=== PATIENT | male | born 1955 ===

== ENCOUNTER 2017-06-09 13:48 | Inpatient (IN) | payer OTHER, MEDICARE ==
[2017-06-09] MEDS ORDERED: DiphenhydrAMINE 50 mg/ml Inj IVP STA (15:22)
--- NOTE | 2017-06-09 15:33 | ED PDOC ---
HPI: General Adult Time Seen by Provider: 06/09/17 14:52 Chief Complaint (Nursing): Shortness Of Breath Chief Complaint (Provider): Shortness Of Breath History Per: Patient History/Exam Limitations: no limitations Onset/Duration Of Symptoms: Other (x 3 weeks) Current Symptoms Are (Timing): Still Present Additional Complaint(s): William RINALDI is a 62 year old male who presents to the emergency department complaining of intermittently swelling of the face for 3 weeks. Patient was seen by PMD and prescribed cortisone steroid. Patient states swelling went away , but returned on Friday. Patient is also complaining of left-sided chest pain that started on Friday. Reports shortness of breath, but denies nausea, facial itching, itchy throat, sore throat or taking new medications. PMD: Seth Jenkins Past Medical History Vital Signs: Last Vital Signs Temp 97.8 F 06/09/17 13:54 Pulse 65 06/09/17 13:54 Resp 18 06/09/17 13:54 BP 104/59 L 06/09/17 13:54 Pulse Ox 100 06/09/17 17:02 - Medical History PMH: Arthritis, CAD, Colonic Polyps, COPD, Diverticulitis, HTN, Hypercholesterolemia, Hypothyroidism Denies: Deep Vein Thrombosis, Chronic Kidney Disease - Surgical History Surgical History: CABG (CABG 3 VESSEL 2013), Coronary Stent, Endoscopy - Family History Family History: States: Unknown Family Hx - Immunization History Hx Tetanus Toxoid Vaccination: No Hx Influenza Vaccination: No Hx Pneumococcal Vaccination: No - Home Medications Home Medications: Ambulatory Orders Medication Instructions Recorded Alprazolam [Xanax] 0.5 mg PO DAILY 06/09/17 Aspirin [Aspirin Chewable] 81 mg PO DAILY 06/09/17 Colchicine [Colcrys] 0.6 mg PO DAILY 06/09/17 Glycopyrrolate/Formoterol Fum 10.7 gm IH BID 06/09/17 [Bevespi Aerosphere Inhaler] Levothyroxine [Levoxyl] 0.025 mg PO DAILY 06/09/17 Metoprolol Succinate [Toprol Xl] 50 mg PO DAILY 06/09/17 Pantoprazole Sodium [Protonix] 40 mg PO DAILY 06/09/17 Valsartan [Diovan] 160 mg PO DAILY 06/09/17 Zolpidem [Ambien] 10 mg PO DAILY 06/09/17 oxyCODONE [oxycodone Hydrochloride] 10 mg PO Q8 06/09/17 - Allergies Allergies/Adverse Reactions: Allergies Allergy/AdvReac Type Severity Reaction Status Date / Time No Known Allergies Allergy Verified 11/04/16 07:17 Physical Exam - Reviewed Nursing Documentation Reviewed: Yes Vital Signs Reviewed: Yes - Physical Exam Appears: Positive for: Well, Non-toxic Head Exam: Positive for: NORMAL INSPECTION Skin: Positive for: Normal Color, Warm, Dry Eye Exam: Positive for: Other (Left eye lid edema with minimal facial edema) ENT: Negative for: Other (drooling) Neck: Positive for: Normal Cardiovascular/Chest: Positive for: Regular Rate, Rhythm Respiratory: Positive for: Normal Breath Sounds. Negative for: Respiratory Distress Gastrointestinal/Abdominal: Positive for: Normal Exam, Soft. Negative for: Tenderness Back: Positive for: Normal Inspection Extremity: Positive for: Normal ROM. Negative for: Deformity Neurologic/Psych: Positive for: Alert, Oriented (x 3), Other (Speaking full sentences) - Laboratory Results Result Diagrams: 06/09/17 15:48 06/09/17 15:48 - ECG Interpretation Of ECG: EKG #1: ST @ 102, poor baseline. EKG #2: NSR @ 86, no ST-T changes. O2 Sat by Pulse Oximetry: 100 (RA) Pulse Ox Interpretation: Normal - Radiology X-Ray: Interpreted by Dc X-Ray Interpretation: No Acute Disease - Physician Consult Information Time Consulting Physican Contacted: 17:02 Physician Contacted: Charlie Reid Outcome Of Conversation: Case discussed, will consult. - Core Measure Core Measure Indicators: Chest Pain Medical Decision Making Medical Decision Making: Time: 15:20 Plan: - EKG - CMP - Troponin I - CBC - Partial Thromboplastin tIME - Prothrombin Time - Portable Chest X-Ray - Benadryl 25 mg IVP STAT - Pepcid 20 mg IVP STAT - Urinalysis Accession No. : [id number] Patient Name / ID : KATHY SERNA / [id number] Exam Date : 06/09/2017 15:39:46 ( Approved ) Study Comment : Sex / Age : M / 62Y Creator : geeta hayden Dictator : Giuliano Ryan MD Clinical Research Director : Hem Marker : Giuliano Ryan MD Approver2 : Report Date : 06/09/2017 15:50:30 My Comment : HISTORY: Chest pain. COMPARISON: 05/31/2013 FINDINGS: LUNGS: No active pulmonary disease. PLEURA: No significant pleural effusion identified, no pneumothorax apparent. CARDIOVASCULAR: No radiographic findings to suggest acute or significant cardiovascular disease. Incidental Finding(s): Postoperative changes related to sternotomy. OSSEOUS STRUCTURES: No significant abnormalities. VISUALIZED UPPER ABDOMEN: Normal. OTHER FINDINGS: None. IMPRESSION: No active disease. No significant interval change. Scribe Attestation: Documented by Cristian Claros, acting as a scribe for Belle Ruiz MD Provider Scribe Attestation: All medical record entries made by the Scribe were at my direction and personally dictated by me. I have reviewed the chart and agree that the record accurately reflects my personal performance of the history, physical exam, medical decision making, and the department course for this patient. I have also personally directed, reviewed, and agree with the discharge instructions and disposition. Disposition - Clinical Impression Clinical Impression: NSTEMI (non-ST elevated myocardial infarction) - Patient ED Disposition Is Patient to be Admitted: Yes - Disposition Disposition Time: 17:01 Condition: GUARDED Forms: [facility] (Ugandan) - Pt Status Changed To: Hospital Disposition Of: Inpatient - Admit Certification Admit to Inpatient:: After my assessment, the patient will require hospitalization for at least two midnights. This is because of the severity of symptoms shown, intensity of services needed, and/or the medical risk in this patient being treated as an outpatient. - POA Present On Arrival: None MAYCO Risk Score for UA/NSTEMI - MAYCO Risk Score Age > 64: NO 3 or more CAD Risk Factors: YES Known CAD (Stenosis greater than 50%): YES Aspirin use in past 7 days: YES Severe Angina: NO EKG ST changes greater than 0.5mm: NO Positive Cardiac Marker: NO MAYCO Score: 3 % risk at 14 days of: all cause mortality, new or recurrent ID, or severe recurrent ischemia requiring urgen revascularization: 13%
[2017-06-09 16:01] LABS: BASO # 0.1 K/uL (0.0-0.2); BASO % 1.1 % (0.0-2.0); EOS # 0.2 K/uL (0.0-0.7); EOS % 2.1 % (0.0-4.0); HEMOGLOBIN 12.6 g/dL (12.0-18.0); LYMPH # 1.1 K/uL (1.0-4.3); LYMPH % 12.1 % (20.0-40.0); MEAN CELL VOLUME 83.6 fl (80.0-94.0); MEAN CORPUSCULAR HEMOGLOBIN 26.5 pg (27.0-31.0); MEAN CORPUSCULAR HGB CONC 31.7 g/dL (33.0-37.0); MONO # 0.8 K/uL (0.0-0.8); MONO % 8.7 % (0.0-10.0); RBC 4.76 Mil/uL (4.40-5.90); RED CELL DISTRIBUTION WIDTH 15.6 % (11.5-14.5); WHITE BLOOD COUNT 9.2 K/uL (4.8-10.8)
[2017-06-09] MEDS ORDERED: DiphenhydrAMINE 50 mg/ml Inj ONE (16:09)
[2017-06-09 16:11] LABS: INR 1.1 (0.9-1.2); PARTIAL THROMBOPLASTIN TIME 27.9 Seconds (25.6-37.1); PROTHROMBIN TIME 11.7 Seconds (9.8-13.1)
[2017-06-09 16:41] LABS: ALB/GLOB RATIO 1.2 (1.0-2.1); ALT/SGPT 353 U/L (21-72); AST/SGOT 540 U/L (17-59); BLOOD UREA NITROGEN 21 mg/dl (9-20); CALCIUM 9.6 mg/dL (8.4-10.2); GFR AFRICAN-AMERICAN > 60; GFR NON-AFRICAN AMERICAN > 60
--- NOTE | 2017-06-09 16:42 | RAD ---
HISTORY: Chest pain. COMPARISON: 05/31/2013 FINDINGS: LUNGS: No active pulmonary disease. PLEURA: No significant pleural effusion identified, no pneumothorax apparent. CARDIOVASCULAR: No radiographic findings to suggest acute or significant cardiovascular disease. Incidental Finding(s): Postoperative changes related to sternotomy. OSSEOUS STRUCTURES: No significant abnormalities. VISUALIZED UPPER ABDOMEN: Normal. OTHER FINDINGS: None. IMPRESSION: No active disease. No significant interval change.
[2017-06-09] MEDS ORDERED: Enoxaparin 100 mg Syringe SC STA ×2 (16:43→16:47)
--- NOTE | 2017-06-09 18:17 | CP.PCM.CON ---
History of Present Illness - History of Present Illness History of Present Illness: I was asked to evaluate patient by Dr Hernandez. Patient is a 62 year old male with PMH HTN, CAD s/p CABG (BERMUDEZ to LAD, SVG toOM (stented)), DM who presents with chest pain. The patient states he has had a recent rash on his face and body. He was noted recently to have elevated liver enzymes by his medical doctor. The patient developed substernal chest pressure and associated dyspnea. He presented to [facility]. Troponin was elevated. Review of Systems - Constitutional Constitutional: Malaise, Weakness - EENT Eyes: absent: As Per HPI, Blind Spots, Blurred Vision, Change in Vision, Decreased Night Vision, Diplopia, Discharge, Dry Eye, Exophthalmos, Floaters, Irritation, Itchy Eyes, Loss of Peripheral Vision, Pain, Photophobia, Requires Corrective Lenses, Sees Flashes, Spots in Vision, Tunnel Vision, Other Visual Disturbances, Loss of Vision, Other Ears: absent: As Per HPI, Decreased Hearing, Ear Discharge, Ear Pain, Tinnitus, Abnormal Hearing, Disequilibrium, Dizziness, Other Nose/Mouth/Throat: absent: As Per HPI, Epistaxis, Nasal Congestion, Nasal Discharge, Nasal Obstruction, Nasal Trauma, Nose Pain, Post Nasal Drip, Sinus Pain, Sinus Pressure, Bleeding Gums, Change in Voice, Dental Pain, Dry Mouth, Dysphagia, Halitosis, Hoarsness, Lip Swelling, Mouth Lesions, Mouth Pain, Odynophagia, Sore Throat, Throat Swelling, Tongue Swelling, Facial Pain, Neck Pain, Neck Mass, Other - Cardiovascular Cardiovascular: Chest Pain, Dyspnea - Respiratory Respiratory: Dyspnea - Gastrointestinal Gastrointestinal: absent: As Per HPI, Abdominal Pain, Belching, Bloating, Change in Bowel Habits, Change in Stool Character, Coffee Ground Emesis, Constipation, Cramping, Diarrhea, Dyspepsia, Dysphagia, Early Satiety, Excessive Flatus, Fecal Incontinence, Heartburn, Hematemesis, Hematochezia, Loose Stools, Melena, Nausea, Odynophagia, Temesmus, Vomiting, Other - Genitourinary Genitourinary: absent: As Per HPI, Change in Urinary Stream, Difficulty Urinating, Dysuria, Flank Pain, Hematuria, Pyuria, Nocturia, Urinary Incontinence, Urinary Frequency, Urinary Hesitance, Urinary Urgency, Voiding Freq/Small Amts, Freq UTI, Hx Renal/Bladder Calculi, Hx /Renal Surgery, Bladder Distension, Other - Musculoskeletal Musculoskeletal: absent: As Per HPI, Abnormal Gait, Arthralgias, Atrophy, Back Pain, Deformity, Joint Swelling, Limited Range of Motion, Loss of Height, Muscle Cramps, Muscle Weakness, Myalgias, Neck Pain, Numbness, Radiating Pain into Limb, Stiffness, Tingling, Other - Integumentary Integumentary: Rash - Neurological Neurological: absent: As Per HPI, Abnormal Gait, Abnormal Hearing, Abnormal Movements, Abnormal Speech, Behavioral Changes, Burning Sensations, Confusion, Convulsions, Disequilibrium, Dizziness, Numbness, Focal Weakness, Frequent Falls , Headaches, Lack of Coordination, Loss of Vision, Memory Loss, Paresthesias, Radicular Pain, Restless Legs, Sensory Deficit, Syncope, Tingling, Tremor, Vertigo, Weakness, Other Visual Disturbances, Other - Psychiatric Psychiatric: absent: As Per HPI, Abnormal Sleep Pattern, Anhedonia, Anxiety, Auditory Hallucinations, Behavioral Changes, Change in Appetite, Change in Libido, Confusion, Depression, Difficulty Concentrating, Hallucinations, Homicidal Ideation, Hopelessness, Irritability, Memory Loss, Mood Swings, Panic Attacks, Paranoia, Suicidal Ideation, Visual Hallucinations, Tactile Hallucinations, Other - Endocrine Endocrine: absent: As Per HPI, Change in Body Appearance, Change in Libido, Cold Intolorance, Deepening of Voice, Excessive Sweating, Fatigue, Flushing, Heat Intolorance, Increase in Ring/Shoe/Hat Size, Palpitations, Polydipsia, Polyphagia, Polyuria, Other - Hematologic/Lymphatic Hematologic: absent: As Per HPI, Easy Bleeding, Easy Bruising, Lymphadenopathy, Other Past Patient History - Past Medical History & Family History Past Medical History?: Yes - Past Social History Smoking Status: Former Smoker - CARDIAC Hx Hypercholesterolemia: Yes Hx Hypertension: Yes - PULMONARY Hx Chronic Obstructive Pulmonary Disease (COPD): Yes - NEUROLOGICAL Hx Neurological Disorder: No Hx Syncope: No - HEENT Hx HEENT Problems: No - RENAL Hx Chronic Kidney Disease: No - ENDOCRINE/METABOLIC Hx Hypothyroidism: Yes - HEMATOLOGICAL/ONCOLOGICAL Hx Blood Disorders: No Hx AIDS: No Hx Blood Transfusions: No - INTEGUMENTARY Hx Dermatological Problems: No - MUSCULOSKELETAL/RHEUMATOLOGICAL Hx Arthritis: Yes - GASTROINTESTINAL Hx Diverticulitis: Yes - GENITOURINARY/GYNECOLOGICAL Hx Genitourinary Disorders: No - PSYCHIATRIC Hx Psychophysiologic Disorder: No Hx Substance Use: No - SURGICAL HISTORY Hx Coronary Artery Bypass Graft: Yes (CABG 3 VESSEL 2014) Hx Coronary Stent: Yes - ANESTHESIA Hx Anesthesia: Yes Hx Anesthesia Reactions: No Hx Malignant Hyperthermia: No Meds Allergies/Adverse Reactions: Allergies Allergy/AdvReac Type Severity Reaction Status Date / Time No Known Allergies Allergy Verified 11/04/16 07:17 Physical Exam - Constitutional Appears: Non-toxic - Head Exam Head Exam: NORMAL INSPECTION - Eye Exam Eye Exam: Periorbital swelling - ENT Exam ENT Exam: Mucous Membranes Moist - Neck Exam Neck exam: Positive for: Full Rom, Normal Inspection - Respiratory Exam Respiratory Exam: NORMAL BREATHING PATTERN - Cardiovascular Exam Cardiovascular Exam: REGULAR RHYTHM - GI/Abdominal Exam GI & Abdominal Exam: Normal Bowel Sounds - Rectal Exam Rectal Exam: Deferred - Extremities Exam Extremities exam: Positive for: normal inspection, pedal pulses present. Negative for: pedal edema - Back Exam Back exam: NORMAL INSPECTION, rash noted - Neurological Exam Neurological exam: Alert, Oriented x3 - Psychiatric Exam Psychiatric exam: Normal Affect - Skin Skin Exam: Normal Color, Rash Results - Vital Signs Recent Vital Signs: Last Vital Signs Temp 97.8 F 06/09/17 13:54 Pulse 65 06/09/17 13:54 Resp 18 06/09/17 13:54 BP 104/59 L 06/09/17 13:54 Pulse Ox 100 06/09/17 17:02 - Labs Result Diagrams: 06/09/17 15:48 06/09/17 15:48 Labs: Laboratory Results - last 24 hr 06/09/17 06/09/17 06/09/17 15:48 15:48 15:48 WBC 9.2 RBC 4.76 Hgb 12.6 D Hct 39.8 MCV 83.6 MCH 26.5 L MCHC 31.7 L RDW 15.6 H Plt Count 316 D MPV 9.0 Neut % (Auto) 76.0 H Lymph % (Auto) 12.1 L Andrew % (Auto) 8.7 Eos % (Auto) 2.1 Baso % (Auto) 1.1 Neut # 7.0 Lymph # 1.1 Andrew # 0.8 Eos # 0.2 Baso # 0.1 PT 11.7 INR 1.1 APTT 27.9 Sodium 140 Potassium 4.6 Chloride 102 Carbon Dioxide 26 Anion Gap 17 BUN 21 H Creatinine 1.2 Est GFR ( Amer) > 60 Est GFR (Non-Af Amer) > 60 Random Glucose 113 H Calcium 9.6 Total Bilirubin 0.6 AST 540 H ALT 353 H D Alkaline Phosphatase 56 Troponin I 0.1910 H* Total Protein 7.2 Albumin 4.0 Globulin 3.2 Albumin/Globulin Ratio 1.2 - EKG Data EKG Interpreted by: Myself EKG shows normal: Sinus rhythm Assessment & Plan (1) NSTEMI (non-ST elevated myocardial infarction) Assessment and Plan: willstart lovenox. ASA therapy. will need cardiac cath, but liver enzymes are elevated and will need further workup. Status: Acute (2) Elevated liver enzymes Assessment and Plan: recommend RUQ sono and GI eval Status: Acute
[2017-06-09 18:53] VITALS: BMI 26.6
[2017-06-09] MEDS ORDERED: Metoprolol Succinate 50 mg XL Tab PO SCH (23:24)
[2017-06-10] MEDS: Oxycodone/Acetaminophen 5/325 mg Tab PO PRN ×4 (00:01→23:40)
[2017-06-10 04:18] LABS: HEMOGLOBIN 12.1 g/dL (12.0-18.0); MEAN CELL VOLUME 82.9 fl (80.0-94.0); MEAN CORPUSCULAR HEMOGLOBIN 27.1 pg (27.0-31.0); MEAN CORPUSCULAR HGB CONC 32.7 g/dL (33.0-37.0); RBC 4.45 Mil/uL (4.40-5.90); WHITE BLOOD COUNT 8.1 K/uL (4.8-10.8)
[2017-06-10 04:24] LABS: SQUAMOUS EPITHIAL < 1 /hpf (0-5); URINE BACTERIA RARE (<OCC); URINE BILIRUBIN NEGATIVE (NEGATIVE); URINE BLOOD MODERATE (NEGATIVE); URINE CLARITY CLOUDY (Clear); URINE COLOR AMBER (YELLOW); URINE GLUCOSE (UA) NEG (Normal); URINE LEUKOCYTE ESTERASE NEG Leu/uL (Negative); URINE NITRATE NEGATIVE (NEGATIVE); URINE PROTEIN 30 mg/dL (NEGATIVE)
[2017-06-10 05:15] LABS: ALB/GLOB RATIO 1.3 (1.0-2.1); ALBUMIN 3.9 g/dL (3.5-5.0); CALCIUM 9.1 mg/dL (8.4-10.2)
[2017-06-10 08:07] LABS: TROPONIN I 0.162 ng/mL (0.00-0.120)
--- NOTE | 2017-06-10 08:37 | CARD ---
APPROVED REPORT EKG Measurement Heart [id number] <Conclusion> Normal sinus rhythm Normal ECG
[2017-06-10] MEDS ORDERED: GLYCOPYRROLATE IH SCH (09:00)
[2017-06-10] MEDS ORDERED: FORMOTEROL FUM IH SCH (09:00)
--- NOTE | 2017-06-10 10:25 | US ---
HISTORY: Elevated liver enzymes COMPARISON: 08/19/2014 CT abdomen and pelvis TECHNIQUE: Sonographic evaluation of the abdomen. FINDINGS: LIVER: Measures 17.8 cm. Hepatopedal blood flow. Fatty infiltration manifest ultrasonographically as increased echogenicity of the liver parenchyma. No mass. No intrahepatic bile duct dilatation. GALLBLADDER: Unremarkable. No gallstones. COMMON BILE DUCT: Measures 4.1 mm. No stones. No dilatation. PANCREAS: Unremarkable as visualized. No mass. No ductal dilatation. Portions of pancreatic tail and body are obscured by overlying bowel gas. RIGHT KIDNEY: Measures 5.4 x 11.4cm. Normal echogenicity. No calculus, mass, or hydronephrosis. LEFT KIDNEY: Measures 5.6 x 10.6cm. Normal echogenicity. No calculus, mass, or hydronephrosis. SPLEEN: Top Normal in size and contour. No mass. AORTA: No aneurysmal dilatation. IVC: Unremarkable. OTHER FINDINGS: None. IMPRESSION: Hepatomegaly/hepatic steatosis without focal abnormality.
[2017-06-10] MEDS: Pantoprazole 40 mg EC Tab PO SCH (10:39)
[2017-06-10] MEDS: Levothyroxine 25 MCG TAB PO SCH (10:40)
[2017-06-10] MEDS ORDERED: methylPREDNISolone 125 MG in Sodium Chloride 0.9% 50 ML IVPB ONE (11:37)
[2017-06-10] MEDS: Sodium Chloride 0.9% 1,000 ML IV SCH ×2 (12:05→23:37)
[2017-06-10] MEDS: Enoxaparin 100 mg Syringe SC SCH ×2 (12:06→21:16)
--- NOTE | 2017-06-10 13:56 | CARD ---
APPROVED REPORT EXAM: Two-dimensional and M-mode echocardiogram with Doppler and color Doppler. Other Information Quality : GoodRhythm : NSR INDICATION Non STEMI Surgery/Intervention CABD DIMENSIONS IVSd1.17 (0.7-1.1cm)LVDd4.98 (3.9-5.9cm) LVOT Diameter2.18 (1.8-2.4cm)PWd1.20 (0.7-1.1cm) IVSs1.41 (0.8-1.2cm)LVDs3.21 (2.5-4.0cm) FS (%) 35.6 %PWs1.51 (0.8-1.2cm) M-Mode DIMENSIONS Left Atrium (MM)4.09 (2.5-4.0cm)IVSd1.00 (0.7-1.1cm) Aortic Root2.88 (2.2-3.7cm)LVDd5.06 (4.0-5.6cm) Aortic Cusp Exc.1.94 (1.5-2.0cm)PWd1.09 (0.7-1.1cm) IVSs1.24 cmFS (%) 42 % LVDs2.94 (2.0-3.8cm)PWs1.79 cm Mitral Valve MV E Ccltdnkt59.5cm/sMV DECEL [id number] A Mwkgejfu68.7cm/s MV QUC08mpX/A ratio1.3MVA (PHT)4.41cm2 TDI Lateral E' Peak V10.10cm/sMedial E' Peak V10.02cm/sE/Lateral E'7.0 E/Medial E'7.0 Pulmonary Valve PV Peak Zmczzamw439.6cm/s LEFT VENTRICLE The left ventricle is normal size. There is normal left ventricular wall thickness. Left ventricle systolic function is normal. The Ejection Fraction is 60-65%. There is normal LV segmental wall motion. The left ventricular diastolic function is normal. RIGHT VENTRICLE The right ventricle is normal size. There is normal right ventricular wall thickness. The right ventricular systolic function is normal. ATRIA The left atrium size is normal. The right atrium size is normal. AORTIC VALVE The aortic valve is normal in structure. No aortic regurgitation is present. There is no aortic valvular stenosis. MITRAL VALVE The mitral valve is normal in structure. There is no evidence of mitral valve prolapse. There is no mitral valve stenosis. There is no mitral valve regurgitation noted. TRICUSPID VALVE The tricuspid valve is normal in structure. There is no tricuspid valve regurgitation noted. PULMONIC VALVE The pulmonary valve is normal in structure. There is no pulmonic valvular regurgitation. GREAT VESSELS The aortic root is normal in size. The IVC is normal in size and collapses >50% with inspiration. PERICARDIAL EFFUSION The pericardium appears normal. <Conclusion> The left ventricle is normal size. There is normal left ventricular wall thickness. There is normal LV segmental wall motion. Left ventricle systolic function is normal. The Ejection Fraction is 60-65%. The left ventricular diastolic function is normal.
--- NOTE | 2017-06-10 16:44 | CP.PCM.HP ---
History of Present Illness - History of Present Illness History of Present Illness: 62 yr old M presented to ED with complaint of left chest pain, SOB and intermittent facial swelling x 3 weeks. PMHx includes CAD s/p CABG-3 vessel and stent 2013, HTN, Hypothyroidism, Diverticulitis, rheumatoid arthritis, Etoh and tobacco abuse (quit 5 yrs ago). Denies sweating, nausea, vomiting, diarrhea or radiation of pain to extremities. Patient reports his PMD-Dr. Jenkins had given him steroids for the facial swelling, it had resolved and then recurred. Patient also reports 14 lb weight loss in a little over 2 weeks, he has been eating healthier/smaller meals but has not been exercising. PMD: Seth Ramirez PMHx: CAD s/p CABG-3 vessel and stent 2013, HTN, Hypothyroidism, Diverticulitis , rheumatoid arthritis, Etoh and tobacco abuse (quit 5 yrs ago) SurgHx: CABG-3 vessel and stent 2013, total right knee replacement 03/07/17; I& D to lower back abscess FMHx: mother is 84-has some type of band nailer cancer/HTN and DM, father at 82 from [place], CAD, PVD; SocHx: denies current tobacco/Etoh or drugs; former tobacco user (90 pack years- quit 5 yrs ago), former Etoh abuse (quit 5 yrs ago-used to drink 1 quart of vodka daily); lives with Medications: see medication reconciliation Allergies: NKDA Present on Admission - Present on Admission Any Indicators Present on Admission: No History of DVT/PE: No History of Uncontrolled Diabetes: No Urinary Catheter: No Decubitus Ulcer Present: No History Surgical Site Infection Following: None Review of Systems - Review of Systems All systems: reviewed and no additional remarkable complaints except (for what is mentioned in the HPI) - Constitutional Constitutional: Weight Loss. absent: Anorexia, Chills, Fever - EENT Eyes: absent: Blurred Vision, Change in Vision Ears: absent: Ear Pain, Disequilibrium, Dizziness Nose/Mouth/Throat: absent: Nasal Congestion, Nasal Discharge, Throat Swelling, Tongue Swelling Additional comments: bilateral periorbital and cheek facial swelling with erythema - Cardiovascular Cardiovascular: Chest Pain, Dyspnea - Respiratory Respiratory: absent: Hemoptysis - Gastrointestinal Gastrointestinal: absent: Abdominal Pain, Nausea, Vomiting - Genitourinary Genitourinary: absent: Difficulty Urinating, Dysuria - Musculoskeletal Musculoskeletal: Arthralgias - Integumentary Integumentary: absent: Bleeding Lesions - Neurological Neurological: absent: Confusion, Focal Weakness, Syncope - Psychiatric Psychiatric: absent: Anxiety - Endocrine Endocrine: absent: Polydipsia, Polyuria - Hematologic/Lymphatic Hematologic: absent: Easy Bleeding, Easy Bruising Past Patient History - Past Medical History & Family History Past Medical History?: Yes - Past Social History Smoking Status: Former Smoker - CARDIAC Hx Cardiac Disorders: Yes Hx Hypercholesterolemia: Yes Hx Hypertension: Yes - PULMONARY Hx Respiratory Disorders: No - NEUROLOGICAL Hx Neurological Disorder: No - HEENT Hx HEENT Problems: No - RENAL Hx Chronic Kidney Disease: No - ENDOCRINE/METABOLIC Hx Endocrine Disorders: Yes Hx Diabetes Mellitus Type 2: Yes - HEMATOLOGICAL/ONCOLOGICAL Hx Blood Disorders: No Hx AIDS: No Hx Human Immunodeficiency Virus (HIV): No - INTEGUMENTARY Hx Dermatological Problems: No - MUSCULOSKELETAL/RHEUMATOLOGICAL Hx Musculoskeletal Disorders: Yes Hx Falls: No Other/Comment: Right knee replacement - GASTROINTESTINAL Hx Gastrointestinal Disorders: Yes Hx Diverticulitis: Yes - GENITOURINARY/GYNECOLOGICAL Hx Genitourinary Disorders: No - PSYCHIATRIC Hx Psychophysiologic Disorder: No Hx Substance Use: No - SURGICAL HISTORY Hx Surgeries: Yes Hx Coronary Artery Bypass Graft: Yes (CABG 3 VESSEL 2013) Hx Coronary Stent: Yes - ANESTHESIA Hx Anesthesia: Yes Hx Anesthesia Reactions: No Hx Malignant Hyperthermia: No Meds Allergies/Adverse Reactions: Allergies Allergy/AdvReac Type Severity Reaction Status Date / Time No Known Allergies Allergy Verified 11/04/16 07:17 Physical Exam - Constitutional Appears: No Acute Distress - Head Exam Head Exam: ATRAUMATIC - Eye Exam Eye Exam: EOMI, Periorbital swelling (bilateral, with erythema), PERRL - ENT Exam ENT Exam: Mucous Membranes Moist - Neck Exam Neck exam: Positive for: Full Rom. Negative for: Lymphadenopathy - Respiratory Exam Respiratory Exam: Clear to Auscultation Bilateral, NORMAL BREATHING PATTERN - Cardiovascular Exam Cardiovascular Exam: REGULAR RHYTHM, +S1, +S2 - GI/Abdominal Exam GI & Abdominal Exam: Normal Bowel Sounds, Soft (obese). absent: Tenderness - Extremities Exam Extremities exam: Positive for: full ROM. Negative for: calf tenderness, pedal edema - Neurological Exam Neurological exam: Alert, CN II-XII Intact, Oriented x3 - Psychiatric Exam Psychiatric exam: Normal Affect, Normal Mood - Skin Skin Exam: Dry, Normal Color, Warm Results - Vital Signs Recent Vital Signs: Last Vital Signs Temp 98.1 F 06/10/17 15:53 Pulse 97 H 06/10/17 15:53 Resp 20 06/10/17 15:53 BP 114/61 06/10/17 15:53 Pulse Ox 99 06/10/17 15:53 - Labs Result Diagrams: 06/10/17 04:10 06/10/17 04:10 Labs: Laboratory Results - last 24 hr 06/09/17 06/10/17 06/10/17 15:48 04:10 04:10 WBC 8.1 RBC 4.45 Hgb 12.1 Hct 36.9 MCV 82.9 MCH 27.1 MCHC 32.7 L RDW 16.0 H Plt Count 291 Sodium 140 Potassium 4.6 Chloride 102 Carbon Dioxide 26 Anion Gap 17 BUN 21 H Creatinine 1.2 Est GFR ( Amer) > 60 Est GFR (Non-Af Amer) > 60 Random Glucose 113 H Calcium 9.6 Total Bilirubin 0.6 AST 540 H ALT 353 H D Alkaline Phosphatase 56 Troponin I 0.1910 H* Total Protein 7.2 Albumin 4.0 Globulin 3.2 Albumin/Globulin Ratio 1.2 Urine Color Sarah Urine Clarity Cloudy Urine pH 5.0 Ur Specific [place] 1.023 Urine Protein 30 Urine Glucose (UA) Neg Urine Ketones Negative Urine Blood Moderate Urine Nitrate Negative Urine Bilirubin Negative Urine Urobilinogen 2.0 Ur Leukocyte Esterase Neg Urine RBC (Auto) 2 Urine Microscopic WBC 6 H Ur Squamous Epith Cells < 1 Urine Bacteria Rare Hyaline Casts 6-10 H 06/10/17 06/10/17 04:10 11:35 WBC RBC Hgb Hct MCV MCH MCHC RDW Plt Count Sodium 139 Potassium 4.1 Chloride 101 Carbon Dioxide 26 Anion Gap 16 BUN 29 H Creatinine 1.7 H Est GFR ( Amer) 50 Est GFR (Non-Af Amer) 41 Random Glucose 84 Calcium 9.1 Total Bilirubin 0.4 AST 497 H ALT 339 H Alkaline Phosphatase 54 Troponin I 0.1620 H* 0.1430 H* Total Protein 6.8 Albumin 3.9 Globulin 3.0 Albumin/Globulin Ratio 1.3 Urine Color Urine Clarity Urine pH Ur Specific [place] Urine Protein Urine Glucose (UA) Urine Ketones Urine Blood Urine Nitrate Urine Bilirubin Urine Urobilinogen Ur Leukocyte Esterase Urine RBC (Auto) Urine Microscopic WBC Ur Squamous Epith Cells Urine Bacteria Hyaline Casts Assessment & Plan - Assessment and Plan (Free Text) Assessment: 62 yr old M admitted for chest pain and SOB, found to have an NSTEMI. -admit to tele -cardiac monitoring -Cardiology on consult-will follow recommendations: Lovenox 90 mg SC Q12, ASA, will need cath once liver enzymes normalize -GI on consult-will follow recommendations: abdominal US -IV fluids, Methylprednisolone 125 mg IV once, singulair 10mg PO QD, prednisone 20mg PO QD -f/u ESR, echocardiogram -heart healthy diet -f/u CBC, CMP - Date & Time Date: 06/10/17 Time: 09:00
[2017-06-10 16:59] LABS: HEPATITIS B SURFACE AG Negative (NEGATIVE)
[2017-06-10 17:05] LABS: HEPATITIS A IGM NEGATIVE (NEGATIVE); HEPATITIS B CORE AB NEGATIVE (NEGATIVE)
[2017-06-10 17:16] LABS: HEPATITIS C ANTIBODY NEGATIVE (NEGATIVE)
--- NOTE | 2017-06-10 18:11 | CP.PCM.PN ---
Subjective - Date & Time of Evaluation Date of Evaluation: 06/10/17 Time of Evaluation: 18:00 Objective - Vital Signs/Intake and Output Vital Signs (last 24 hours): Temp Pulse Resp BP Pulse Ox 98.1 F 97 H 20 114/61 99 06/10/17 15:53 06/10/17 15:53 06/10/17 15:53 06/10/17 15:53 06/10/17 15:53 - Medications Medications: Current Medications Alprazolam (Xanax) 0.5 mg PO Q12 [facility] Last Admin: 06/10/17 10:46 Dose: 0.5 mg Aspirin (Aspirin Chewable) 81 mg PO DAILY [facility] Last Admin: 06/10/17 10:38 Dose: 81 mg Colchicine (Colocrys) 0.6 mg PO DAILY [facility] Last Admin: 06/10/17 10:38 Dose: 0.6 mg Diphenhydramine HCl (Benadryl) 25 mg PO Q6 PRN PRN Reason: pruritis Last Admin: 06/10/17 10:46 Dose: 25 mg Enoxaparin Sodium (Lovenox) 90 mg SC Q12 [facility] PRN Reason: Protocol Last Admin: 06/10/17 12:06 Dose: 90 mg Sodium Chloride (Sodium Chloride 0.9%) 1,000 mls @ 100 mls/hr IV .Q10H [facility] Stop: 06/11/17 06:59 Last Admin: 06/10/17 12:05 Dose: 100 mls/hr Levothyroxine Sodium (Synthroid) 25 mcg PO DAILY@0630 [facility] Last Admin: 06/10/17 10:40 Dose: 25 mcg Metoprolol Succinate (Toprol Xl) 50 mg PO HS [facility] Montelukast Sodium (Singulair) 10 mg PO HS [facility] Oxycodone/Acetaminophen (Percocet 5/325 Mg Tab) 1 tab PO Q4 PRN PRN Reason: Pain, moderate (4-7) Stop: 06/12/17 22:26 Last Admin: 06/10/17 17:52 Dose: 1 tab Pantoprazole Sodium (Protonix Ec Tab) 40 mg PO DAILY [facility] Last Admin: 06/10/17 10:39 Dose: 40 mg Prednisone (Prednisone Tab) 20 mg PO DAILY [facility] Valsartan (Diovan) 160 mg PO DAILY [facility] Last Admin: 06/10/17 12:06 Dose: 160 mg Zolpidem Tartrate (Ambien) 10 mg PO HS [facility] Last Admin: 06/10/17 00:02 Dose: 10 mg - Labs Labs: 06/10/17 04:10 06/10/17 04:10 PT 11.7 Seconds (9.8-13.1) 06/09/17 15:48 INR 1.1 (0.9-1.2) 06/09/17 15:48 APTT 27.9 Seconds (25.6-37.1) 06/09/17 15:48 Assessment and Plan (1) NSTEMI (non-ST elevated myocardial infarction) Status: Acute (2) Elevated liver enzymes Status: Acute
--- NOTE | 2017-06-10 18:57 | CON ---
DATE: 06/10/2017 REFERRING PHYSICIAN: Sony Hernandez M.D. REASON FOR CONSULTATION: Elevated LFTs. HISTORY OF PRESENT ILLNESS: This is a pleasant 62-year-old male essentially came in for what appears to be right facial swelling. The patient was prescribed steroids in the office and then admitted to the hospital for increasing chest pain, some shortness of breath. No nausea, no vomiting, no diarrhea. No fever or chills. Currently, lying in bed comfortable, in no apparent distress. PAST MEDICAL HISTORY: As above. PAST SURGICAL HISTORY: As above. MEDICATIONS: Have been reviewed. REVIEW OF SYSTEMS: All other systems have been reviewed and are negative apart from the HPI. PHYSICAL EXAMINATION GENERAL: This is a pleasant middle-aged male, lying in bed comfortably, in no apparent distress. VITAL SIGNS: In the hospital, grossly unremarkable. HEENT: Head is normocephalic, atraumatic. Some swelling. LUNGS: Coarse breath sounds bilaterally. HEART: S1 and S2, regular rate and rhythm. No murmurs appreciated. ABDOMEN: Soft and nontender. Bowel sounds present. No rebound. No guarding. RECTAL: Deferred. EXTREMITIES: Pulses present bilaterally. SKIN: Warm, dry, and intact. NEUROLOGIC: A and O x3. LABORATORY DATA: Labs reviewed. WBC is 8.1, hemoglobin 12.1, hematocrit 36.9, platelet count is within normal limits. INR 1.1. Troponins are positive x2. AST and ALT are 497 and 339, slightly improved from previous. Bilirubin is completely normal. Ultrasound is pending. ASSESSMENT AND PLAN: This is a 62-year-old male with elevated liver function tests. From GI standpoint, ultrasound is pending. I will recommend hepatitis A, B and C panel. This is likely all secondary to the cardiovascular event. Further workup and management is pending. From GI standpoint, can advance diet as tolerated. Thank you for the consult. Trae Fay MD/ PhD cc: Sony Hernandez MD
[2017-06-10] MEDS ORDERED: Metoprolol Succinate 50 mg XL Tab PO SCH (22:00)
[2017-06-10] MEDS: Metoprolol Succinate 50 mg XL Tab PO SCH (22:39)
[2017-06-11] MEDS: Levothyroxine 25 MCG TAB PO SCH (06:03)
[2017-06-11 07:33] LABS: ALB/GLOB RATIO 1.1 (1.0-2.1); ALBUMIN 3.4 g/dL (3.5-5.0); ALT/SGPT 293 U/L (21-72); AST/SGOT 368 U/L (17-59); BLOOD UREA NITROGEN 27 mg/dl (9-20); CALCIUM 8.8 mg/dL (8.4-10.2); GFR AFRICAN-AMERICAN > 60; GFR NON-AFRICAN AMERICAN > 60
[2017-06-11] MEDS: Enoxaparin 100 mg Syringe SC SCH (09:13)
[2017-06-11] MEDS: Pantoprazole 40 mg EC Tab PO SCH (09:14)
--- NOTE | 2017-06-11 11:21 | CP.PCM.PN ---
Subjective - Date & Time of Evaluation Date of Evaluation: 06/11/17 Time of Evaluation: 10:00 - Subjective Subjective: Patient seen and examined at bedside with attending- Dr. Hernandez. Denies chest pain, SOB, or weakness. Tolerating PO diet. Patient is aware that he is to be NPO after midnight for cardiac catheterization tomorrow. Objective - Vital Signs/Intake and Output Vital Signs (last 24 hours): Temp Pulse Resp BP Pulse Ox 97.3 F L 81 20 150/78 99 06/11/17 08:00 06/11/17 08:00 06/11/17 08:00 06/11/17 08:00 06/11/17 08:00 Intake and Output: 06/11/17 06/11/17 06:59 18:59 Intake Total 1600 Balance 1600 - Medications Medications: Current Medications Alprazolam (Xanax) 0.5 mg PO Q12 [facility] Last Admin: 06/11/17 09:23 Dose: 0.5 mg Aspirin (Aspirin Chewable) 81 mg PO DAILY [facility] Last Admin: 06/11/17 09:10 Dose: 81 mg Colchicine (Colocrys) 0.6 mg PO DAILY [facility] Last Admin: 06/11/17 09:11 Dose: 0.6 mg Diphenhydramine HCl (Benadryl) 25 mg PO Q6 PRN PRN Reason: pruritis Last Admin: 06/10/17 10:46 Dose: 25 mg Enoxaparin Sodium (Lovenox) 90 mg SC Q12 [facility] PRN Reason: Protocol Last Admin: 06/11/17 09:13 Dose: 90 mg Levothyroxine Sodium (Synthroid) 25 mcg PO DAILY@0630 [facility] Last Admin: 06/11/17 06:03 Dose: 25 mcg Metoprolol Succinate (Toprol Xl) 50 mg PO [facility] Last Admin: 06/10/17 22:39 Dose: 50 mg Montelukast Sodium (Singulair) 10 mg PO [facility] Last Admin: 06/10/17 21:16 Dose: 10 mg Oxycodone/Acetaminophen (Percocet 5/325 Mg Tab) 1 tab PO Q4 PRN PRN Reason: Pain, moderate (4-7) Stop: 06/12/17 22:26 Last Admin: 06/10/17 23:40 Dose: 1 tab Pantoprazole Sodium (Protonix Ec Tab) 40 mg PO DAILY [facility] Last Admin: 06/11/17 09:14 Dose: 40 mg Prednisone (Prednisone Tab) 20 mg PO DAILY [facility] Last Admin: 06/11/17 09:13 Dose: 20 mg Valsartan (Diovan) 160 mg PO DAILY [facility] Last Admin: 06/11/17 09:12 Dose: 160 mg Zolpidem Tartrate (Ambien) 10 mg PO HS [facility] Last Admin: 06/10/17 21:20 Dose: 10 mg - Labs Labs: 06/10/17 04:10 06/11/17 04:45 PT 11.7 Seconds (9.8-13.1) 06/09/17 15:48 INR 1.1 (0.9-1.2) 06/09/17 15:48 APTT 27.9 Seconds (25.6-37.1) 06/09/17 15:48 - Constitutional Appears: No Acute Distress - Head Exam Head Exam: ATRAUMATIC, NORMOCEPHALIC - Eye Exam Eye Exam: EOMI, PERRL Additional comments: Periorbital swelling improved - ENT Exam ENT Exam: Mucous Membranes Moist - Neck Exam Neck Exam: Full ROM - Respiratory Exam Respiratory Exam: NORMAL BREATHING PATTERN - Cardiovascular Exam Cardiovascular Exam: REGULAR RHYTHM, +S1, +S2 - GI/Abdominal Exam GI & Abdominal Exam: Soft, Normal Bowel Sounds - Extremities Exam Extremities Exam: Full ROM - Neurological Exam Neurological Exam: Alert, Awake, CN II-XII Intact, Oriented x3 Assessment and Plan - Assessment and Plan (Free Text) Assessment: -continue present management -addtional IVF -NPO after midnight -cardiac cath tomorrow with Dr. Reid -refer to dermatology as outpatient- Dr. Estrella Zhao
--- NOTE | 2017-06-11 15:17 | CP.PCM.PN ---
Subjective - Date & Time of Evaluation Date of Evaluation: 06/11/17 Time of Evaluation: 15:16 - Subjective Subjective: no overnight complaints Objective - Vital Signs/Intake and Output Vital Signs (last 24 hours): Temp Pulse Resp BP Pulse Ox 97.7 F 72 18 150/79 99 06/11/17 12:28 06/11/17 12:28 06/11/17 12:28 06/11/17 12:28 06/11/17 12:28 Intake and Output: 06/11/17 06/11/17 06:59 18:59 Intake Total 1600 Balance 1600 - Medications Medications: Current Medications Alprazolam (Xanax) 0.5 mg PO Q12 [facility] Last Admin: 06/11/17 09:23 Dose: 0.5 mg Aspirin (Aspirin Chewable) 81 mg PO DAILY [facility] Last Admin: 06/11/17 09:10 Dose: 81 mg Colchicine (Colocrys) 0.6 mg PO DAILY [facility] Last Admin: 06/11/17 09:11 Dose: 0.6 mg Diphenhydramine HCl (Benadryl) 25 mg PO Q6 PRN PRN Reason: pruritis Last Admin: 06/11/17 13:29 Dose: 25 mg Enoxaparin Sodium (Lovenox) 90 mg SC Q12 [facility] PRN Reason: Protocol Last Admin: 06/11/17 09:13 Dose: 90 mg Levothyroxine Sodium (Synthroid) 25 mcg PO DAILY@0630 [facility] Last Admin: 06/11/17 06:03 Dose: 25 mcg Metoprolol Succinate (Toprol Xl) 50 mg PO [facility] Last Admin: 06/10/17 22:39 Dose: 50 mg Montelukast Sodium (Singulair) 10 mg PO [facility] Last Admin: 06/10/17 21:16 Dose: 10 mg Oxycodone/Acetaminophen (Percocet 5/325 Mg Tab) 1 tab PO Q4 PRN PRN Reason: Pain, moderate (4-7) Stop: 06/12/17 22:26 Last Admin: 06/10/17 23:40 Dose: 1 tab Pantoprazole Sodium (Protonix Ec Tab) 40 mg PO DAILY [facility] Last Admin: 06/11/17 09:14 Dose: 40 mg Prednisone (Prednisone Tab) 20 mg PO DAILY [facility] Last Admin: 06/11/17 09:13 Dose: 20 mg Valsartan (Diovan) 160 mg PO DAILY [facility] Last Admin: 06/11/17 09:12 Dose: 160 mg Zolpidem Tartrate (Ambien) 10 mg PO HS [facility] Last Admin: 06/10/17 21:20 Dose: 10 mg - Labs Labs: 06/10/17 04:10 06/11/17 04:45 PT 11.7 Seconds (9.8-13.1) 06/09/17 15:48 INR 1.1 (0.9-1.2) 06/09/17 15:48 APTT 27.9 Seconds (25.6-37.1) 06/09/17 15:48 - Neck Exam Neck Exam: Normal Inspection - Respiratory Exam Respiratory Exam: NORMAL BREATHING PATTERN - Cardiovascular Exam Cardiovascular Exam: REGULAR RHYTHM - GI/Abdominal Exam GI & Abdominal Exam: Normal Bowel Sounds Assessment and Plan - Assessment and Plan (Free Text) Assessment: 62 yo male with elevated lft improving secondary to fatty liver, likely hep panel negative
--- NOTE | 2017-06-11 18:47 | CP.PCM.PN ---
Subjective - Date & Time of Evaluation Date of Evaluation: 06/11/17 Time of Evaluation: 18:00 Objective - Vital Signs/Intake and Output Vital Signs (last 24 hours): Temp Pulse Resp BP Pulse Ox 98.5 F 77 20 134/77 99 06/11/17 16:19 06/11/17 16:19 06/11/17 16:19 06/11/17 16:19 06/11/17 16:19 Intake and Output: 06/11/17 06/11/17 06:59 18:59 Intake Total 1600 Balance 1600 - Medications Medications: Current Medications Alprazolam (Xanax) 0.5 mg PO Q12 [facility] Last Admin: 06/11/17 09:23 Dose: 0.5 mg Aspirin (Aspirin Chewable) 81 mg PO DAILY [facility] Last Admin: 06/11/17 09:10 Dose: 81 mg Colchicine (Colocrys) 0.6 mg PO DAILY [facility] Last Admin: 06/11/17 09:11 Dose: 0.6 mg Diphenhydramine HCl (Benadryl) 25 mg PO Q6 PRN PRN Reason: pruritis Last Admin: 06/11/17 13:29 Dose: 25 mg Enoxaparin Sodium (Lovenox) 90 mg SC Q12 [facility] PRN Reason: Protocol Last Admin: 06/11/17 09:13 Dose: 90 mg Levothyroxine Sodium (Synthroid) 25 mcg PO DAILY@0630 [facility] Last Admin: 06/11/17 06:03 Dose: 25 mcg Metoprolol Succinate (Toprol Xl) 50 mg PO [facility] Last Admin: 06/10/17 22:39 Dose: 50 mg Montelukast Sodium (Singulair) 10 mg PO [facility] Last Admin: 06/10/17 21:16 Dose: 10 mg Oxycodone/Acetaminophen (Percocet 5/325 Mg Tab) 1 tab PO Q4 PRN PRN Reason: Pain, moderate (4-7) Stop: 06/12/17 22:26 Last Admin: 06/10/17 23:40 Dose: 1 tab Pantoprazole Sodium (Protonix Ec Tab) 40 mg PO DAILY [facility] Last Admin: 06/11/17 09:14 Dose: 40 mg Prednisone (Prednisone Tab) 20 mg PO DAILY [facility] Last Admin: 06/11/17 09:13 Dose: 20 mg Valsartan (Diovan) 160 mg PO DAILY [facility] Last Admin: 06/11/17 09:12 Dose: 160 mg Zolpidem Tartrate (Ambien) 10 mg PO HS [facility] Last Admin: 06/10/17 21:20 Dose: 10 mg - Labs Labs: 06/10/17 04:10 06/11/17 04:45 PT 11.7 Seconds (9.8-13.1) 06/09/17 15:48 INR 1.1 (0.9-1.2) 06/09/17 15:48 APTT 27.9 Seconds (25.6-37.1) 06/09/17 15:48 Assessment and Plan (1) NSTEMI (non-ST elevated myocardial infarction) Status: Acute (2) Elevated liver enzymes Status: Acute
[2017-06-11] MEDS: Metoprolol Succinate 50 mg XL Tab PO SCH (21:36)
[2017-06-12 05:33] LABS: ALB/GLOB RATIO 1.2 (1.0-2.1); ALBUMIN 3.5 g/dL (3.5-5.0); ALT/SGPT 297 U/L (21-72); AST/SGOT 349 U/L (17-59); BLOOD UREA NITROGEN 23 mg/dl (9-20); CALCIUM 9.4 mg/dL (8.4-10.2); GFR AFRICAN-AMERICAN > 60; GFR NON-AFRICAN AMERICAN > 60
[2017-06-12] MEDS: Levothyroxine 25 MCG TAB PO SCH (06:30)
[2017-06-12] MEDS: Pantoprazole 40 mg EC Tab PO SCH (08:25)
--- NOTE | 2017-06-12 11:22 | CP.PCM.PN ---
Subjective - Date & Time of Evaluation Date of Evaluation: 06/12/17 Time of Evaluation: 11:20 - Subjective Subjective: 62 YO M seen at bedside in good spirts. He is scheduled for Cath procedure today. Denies any chest pain, SOB, N/V currently. Objective - Vital Signs/Intake and Output Vital Signs (last 24 hours): Temp Pulse Resp BP Pulse Ox 98.1 F 90 18 151/92 H 98 06/12/17 08:05 06/12/17 08:05 06/12/17 08:05 06/12/17 08:05 06/12/17 08:05 Intake and Output: 06/12/17 06/12/17 06:59 18:59 Intake Total 1900 Balance 1900 - Medications Medications: Current Medications Alprazolam (Xanax) 0.5 mg PO Q12 [facility] Last Admin: 06/12/17 08:27 Dose: 0.5 mg Aspirin (Aspirin Chewable) 81 mg PO DAILY [facility] Last Admin: 06/12/17 08:24 Dose: 81 mg Colchicine (Colocrys) 0.6 mg PO DAILY [facility] Last Admin: 06/11/17 09:11 Dose: 0.6 mg Diphenhydramine HCl (Benadryl) 25 mg PO Q6 PRN PRN Reason: pruritis Last Admin: 06/11/17 13:29 Dose: 25 mg Enoxaparin Sodium (Lovenox) 90 mg SC Q12 [facility] PRN Reason: Protocol Last Admin: 06/11/17 09:13 Dose: 90 mg Levothyroxine Sodium (Synthroid) 25 mcg PO DAILY@0630 [facility] Last Admin: 06/12/17 06:30 Dose: 25 mcg Metoprolol Succinate (Toprol Xl) 50 mg PO [facility] Last Admin: 06/11/17 21:36 Dose: 50 mg Montelukast Sodium (Singulair) 10 mg PO [facility] Last Admin: 06/11/17 21:37 Dose: 10 mg Oxycodone/Acetaminophen (Percocet 5/325 Mg Tab) 1 tab PO Q4 PRN PRN Reason: Pain, moderate (4-7) Stop: 06/12/17 22:26 Last Admin: 06/10/17 23:40 Dose: 1 tab Pantoprazole Sodium (Protonix Ec Tab) 40 mg PO DAILY [facility] Last Admin: 06/12/17 08:25 Dose: 40 mg Prednisone (Prednisone Tab) 20 mg PO DAILY [facility] Last Admin: 06/12/17 08:25 Dose: 20 mg Valsartan (Diovan) 160 mg PO DAILY [facility] Last Admin: 06/12/17 08:24 Dose: 160 mg Zolpidem Tartrate (Ambien) 10 mg PO HS [facility] Last Admin: 06/11/17 21:36 Dose: 10 mg - Labs Labs: 06/10/17 04:10 06/12/17 04:50 PT 11.7 Seconds (9.8-13.1) 06/09/17 15:48 INR 1.1 (0.9-1.2) 06/09/17 15:48 APTT 27.9 Seconds (25.6-37.1) 06/09/17 15:48 - Constitutional Appears: No Acute Distress - Head Exam Head Exam: NORMAL INSPECTION - Eye Exam Additional comments: periorbital swelling improved - Respiratory Exam Respiratory Exam: Clear to Ausculation Bilateral. absent: Rhonchi, Wheezes - Cardiovascular Exam Cardiovascular Exam: REGULAR RHYTHM, +S1, +S2 - GI/Abdominal Exam GI & Abdominal Exam: Soft, Normal Bowel Sounds. absent: Tenderness - Extremities Exam Extremities Exam: absent: Calf Tenderness - Neurological Exam Neurological Exam: Alert, Awake, CN II-XII Intact, Oriented x3 Assessment and Plan - Assessment and Plan (Free Text) Assessment: 1) NSTEMI -continue present management - NPO -cardiac cath today with Dr. Reid 2) Transaminitis -Most likely secondary to fatty liver - Hep panel negative -refer to dermatology as outpatient- Dr. Estrella Zhao
[2017-06-12] MEDS: Metoprolol Succinate 50 mg XL Tab PO SCH (22:49)
[2017-06-13 00:49] VITALS: RESP 18
[2017-06-13 05:22] VITALS: O2SAT 97
[2017-06-13] MEDS: Levothyroxine 25 MCG TAB PO SCH (06:41)
[2017-06-13 08:34] VITALS: BP 152/72; PULSE 77; TEMP 97.8
[2017-06-13] MEDS ORDERED: Oxycodone/Acetaminophen 5/325 mg Tab PO PRN (09:56)
[2017-06-13] MEDS: Pantoprazole 40 mg EC Tab PO SCH (10:00)
--- NOTE | 2017-06-13 11:10 | CP.PCM.PCO ---
Assessment & Plan - Assessment and Plan (Free Text) Assessment: pt. doing well today- denies cp, sob, palpitation, fever or chills pt . s/p Cardiac cath at [facility] 06/12 - Severe stenosis mid RCA s/p PCI drug eluding stent pt. started on Brillanta- as per recommendation, cont. Brillanta 90 mg po bid x 1 year then switch to 60 mg po bid, cont. ASA pt. cleared for discharge to Home today by and pt. will f/u with pMD outpatient Rx for meds provided and sent to [facility] f/u with Dermatology outpatient
--- NOTE | 2017-06-13 17:36 | CP.PCM.DIS ---
Provider - Provider Date of Admission: 06/09/17 16:47 Attending physician: Sony Hernandez MD Time Spent in preparation of Discharge (in minutes): 30 Diagnosis - Discharge Diagnosis (1) NSTEMI (non-ST elevated myocardial infarction) Status: Acute Hospital Course - Lab Results Lab Results: Most Recent Lab Values WBC 8.1 K/uL (4.8-10.8) 06/10/17 04:10 RBC 4.45 Mil/uL (4.40-5.90) 06/10/17 04:10 Hgb 12.1 g/dL (12.0-18.0) 06/10/17 04:10 Hct 36.9 % (35.0-51.0) 06/10/17 04:10 MCV 82.9 fl (80.0-94.0) 06/10/17 04:10 MCH 27.1 pg (27.0-31.0) 06/10/17 04:10 MCHC 32.7 g/dL (33.0-37.0) L 06/10/17 04:10 RDW 16.0 % (11.5-14.5) H 06/10/17 04:10 Plt Count 291 K/uL (130-400) 06/10/17 04:10 MPV 9.0 fl (7.2-11.7) 06/09/17 15:48 Neut % (Auto) 76.0 % (50.0-75.0) H 06/09/17 15:48 Lymph % (Auto) 12.1 % (20.0-40.0) L 06/09/17 15:48 Swift % (Auto) 8.7 % (0.0-10.0) 06/09/17 15:48 Eos % (Auto) 2.1 % (0.0-4.0) 06/09/17 15:48 Baso % (Auto) 1.1 % (0.0-2.0) 06/09/17 15:48 Neut # 7.0 K/uL (1.8-7.0) 06/09/17 15:48 Lymph # 1.1 K/uL (1.0-4.3) 06/09/17 15:48 Swift # 0.8 K/uL (0.0-0.8) 06/09/17 15:48 Eos # 0.2 K/uL (0.0-0.7) 06/09/17 15:48 Baso # 0.1 K/uL (0.0-0.2) 06/09/17 15:48 ESR 29 mm/hr (0-20) H 06/10/17 17:32 PT 11.7 Seconds (9.8-13.1) 06/09/17 15:48 INR 1.1 (0.9-1.2) 06/09/17 15:48 APTT 27.9 Seconds (25.6-37.1) 06/09/17 15:48 Sodium 144 mmol/l (132-148) 06/12/17 04:50 Potassium 4.2 MMOL/L (3.6-5.0) 06/12/17 04:50 Chloride 108 mmol/L (98-107) H 06/12/17 04:50 Carbon Dioxide 28 mmol/L (22-30) 06/12/17 04:50 Anion Gap 12 (10-20) 06/12/17 04:50 BUN 23 mg/dl (9-20) H 06/12/17 04:50 Creatinine 0.8 mg/dl (0.8-1.5) 06/12/17 04:50 Est GFR ( Amer) > 60 06/12/17 04:50 Est GFR (Non-Af Amer) > 60 06/12/17 04:50 Random Glucose 87 mg/dL (75-110) 06/12/17 04:50 Calcium 9.4 mg/dL (8.4-10.2) 06/12/17 04:50 Total Bilirubin 0.3 mg/dl (0.2-1.3) 06/12/17 04:50 AST 349 U/L (17-59) H 06/12/17 04:50 ALT 297 U/L (21-72) H 06/12/17 04:50 Alkaline Phosphatase 44 U/L (38-126) 06/12/17 04:50 Troponin I 0.1430 ng/mL (0.00-0.120) H* 06/10/17 11:35 Total Protein 6.5 G/DL (6.3-8.2) 06/12/17 04:50 Albumin 3.5 g/dL (3.5-5.0) 06/12/17 04:50 Globulin 2.9 gm/dL (2.2-3.9) 06/12/17 04:50 Albumin/Globulin Ratio 1.2 (1.0-2.1) 06/12/17 04:50 Urine Color Sarah (YELLOW) 06/10/17 04:10 Urine Clarity Cloudy (Clear) 06/10/17 04:10 Urine pH 5.0 (5.0-8.0) 06/10/17 04:10 Ur Specific [place] 1.023 (1.003-1.030) 06/10/17 04:10 Urine Protein 30 mg/dL (NEGATIVE) 06/10/17 04:10 Urine Glucose (UA) Neg mg/dL (Normal) 06/10/17 04:10 Urine Ketones Negative mg/dL (NEGATIVE) 06/10/17 04:10 Urine Blood Moderate (NEGATIVE) 06/10/17 04:10 Urine Nitrate Negative (NEGATIVE) 06/10/17 04:10 Urine Bilirubin Negative (NEGATIVE) 06/10/17 04:10 Urine Urobilinogen 2.0 mg/dL (0.2-1.0) 06/10/17 04:10 Ur Leukocyte Esterase Neg Fabrizio/uL (Negative) 06/10/17 04:10 Urine RBC (Auto) 2 /hpf (0-3) 06/10/17 04:10 Urine Microscopic WBC 6 /hpf (0-5) H 06/10/17 04:10 Ur Squamous Epith Cells < 1 /hpf (0-5) 06/10/17 04:10 Urine Bacteria Rare (<OCC) 06/10/17 04:10 Hyaline Casts 6-10 /hpf (0-2) H 06/10/17 04:10 Hepatitis A IgM Ab Negative (NEGATIVE) 06/10/17 10:17 Hep Bs Antigen Negative (NEGATIVE) 06/10/17 10:17 Hep B Core IgM Ab Negative (NEGATIVE) 06/10/17 10:17 Hepatitis C Antibody Negative (NEGATIVE) 06/10/17 10:17 - Hospital Course Hospital Course: 62 YO M presented to the ER with left sided chest pain, SOB and intermitant facial swelling x 3 weeks. During his stay he was noted to have two positive troponins and had a Cardiac cath at [facility] [place] 06/12/16:showed severe stenoisis mid rCA s/p PCI drug eluting stent patient is started on Brillanta- as per recommendation, cont. Brillanta 90 mg po bid x 1 year then switch to 60 mg po bid, cont. ASA pt. cleared for discharge to Home today by and pt. will f/u with pMD outpatient Rx for meds provided and sent to [facility] f/u with Dermatology outpatient Discharge Exam - Head Exam Head Exam: NORMAL INSPECTION - Eye Exam Eye Exam: Normal appearance - Respiratory Exam Respiratory Exam: Clear to PA & Lateral. absent: Rales, Rhonchi, Wheezes - Cardiovascular Exam Cardiovascular Exam: +S1, +S2 - GI/Abdominal Exam GI & Abdominal Exam: Normal Bowel Sounds, Soft. absent: Tenderness - Neurological Exam Neurological exam: Alert, CN II-XII Intact, Oriented x3 - Skin Additional comments: periorbital swelling b/l Discharge Plan - Discharge Medications Prescriptions: Methylprednisolone [Medrol Dose Pack (21 tabs)] 4 mg PO DAILY #21 mg Montelukast [Singulair] 10 mg PO HS #30 tab Ticagrelor [Brilinta] 90 mg PO BID #60 tab - Follow Up Plan Condition: GOOD Disposition: HOME/ ROUTINE Instructions: Myocardial Infarction (DC) Additional Instructions: pt. doing well today- denies cp, sob, palpitation, fever or chills pt . s/p Cardiac cath at [facility] [place] 06/12 - Severe stenosis mid RCA s/p PCI drug eluding stent pt. started on Brillanta- as per recommendation, cont. Brillanta 90 mg po bid x 1 year then switch to 60 mg po bid, cont. ASA pt. cleared for discharge to Home today [place] and pt. will f/u with pMD outpatient Rx for meds provided and sent to [facility] f/u with Dermatology outpatient Referrals: Seth Jenkins MD [Family Provider] -
== END 2017-06-13 12:04 | disposition home or self-care (01) | DRG 247 ==
LOC: H.ER 13:48 → H.ERHOLD 16:47 → H.TEL 18:45
PROVIDERS: ADMIT Family Medicine; ATTEND Family Medicine
PROC: 027034Z Dilation of Coronary Artery, One Artery with Drug-eluting Intraluminal Device, Percutaneous Approach (ICD-10-PCS; principal; 2017-06-12)
PROC: 4A023N7 Measurement of Cardiac Sampling and Pressure, Left Heart, Percutaneous Approach (ICD-10-PCS; 2017-06-12)
PROC: B205YZZ Plain Radiography of Left Heart using Other Contrast (ICD-10-PCS; 2017-06-12)
DX: I21.4 Non-ST elevation (NSTEMI) myocardial infarction (principal); I25.10 Atherosclerotic heart disease of native coronary artery without angina pectoris; K76.0 Fatty (change of) liver, not elsewhere classified; I10 Essential (primary) hypertension; R74.8 Abnormal levels of other serum enzymes; E03.9 Hypothyroidism, unspecified; E11.9 Type 2 diabetes mellitus without complications; E78.00 Pure hypercholesterolemia, unspecified; J44.9 Chronic obstructive pulmonary disease, unspecified; M06.9 Rheumatoid arthritis, unspecified; Z95.1 Presence of aortocoronary bypass graft; Z95.5 Presence of coronary angioplasty implant and graft; Z87.891 Personal history of nicotine dependence; Z96.651 Presence of right artificial knee joint; Z86.010 Personal history of colon polyps

== ENCOUNTER 2017-08-01 10:11 | Inpatient (IN) | payer OTHER, MEDICARE ==
[2017-08-01 10:17] VITALS: BMI 27.1
--- NOTE | 2017-08-01 10:56 | ED PDOC ---
HPI: General Adult Time Seen by Provider: 08/01/17 10:53 Chief Complaint (Nursing): Rib Injury Chief Complaint (Provider): FALL History Per: Patient (62 Y/O MALE H/O CARDIAC STENT 1 MONTH AGO ON BRILINTA FOR ANTICOAGULATION, HERE FOR EVALUATION OF FALL THAT OCCURRED YESTERDAY. STATES HE TRIPPED AND FELL FORWARD ON LEFT SIDE OF BODY. NOTES LEFT SIDED CHEST/ABD PAIN AND IS CONCERNED FOR RIB FX. NOTES HEAD INJURY BUT NO LOC. ) Past Medical History Reviewed: Historical Data, Nursing Documentation, Vital Signs Vital Signs: Last Vital Signs Temp 98.2 F 08/01/17 10:17 Pulse 84 08/01/17 10:17 Resp 16 08/01/17 10:17 BP 128/72 08/01/17 10:17 Pulse Ox 100 08/01/17 14:19 - Medical History PMH: Arthritis, CAD, Colonic Polyps, COPD, Diverticulitis, HTN, Hypercholesterolemia, Hypothyroidism Denies: Deep Vein Thrombosis, HIV, Chronic Kidney Disease - Surgical History Surgical History: CABG (CABG 3 VESSEL 2013), Coronary Stent, Endoscopy - Family History Family History: States: Unknown Family Hx - Immunization History Hx Tetanus Toxoid Vaccination: No Hx Influenza Vaccination: No Hx Pneumococcal Vaccination: No - Home Medications Home Medications: Ambulatory Orders Medication Instructions Recorded Alprazolam [Xanax] 0.5 mg PO BID 06/09/17 Aspirin [Aspirin Chewable] 81 mg PO DAILY 06/09/17 Glycopyrrolate/Formoterol Fum 10.7 gm IH BID 06/09/17 [Bevespi Aerosphere Inhaler] Levothyroxine [Synthroid] 0.025 mg PO DAILY 06/09/17 Metoprolol Succinate [Toprol Xl] 50 mg PO DAILY 06/09/17 Pantoprazole Sodium [Protonix] 40 mg PO DAILY 06/09/17 Valsartan [Diovan] 160 mg PO DAILY 06/09/17 Zolpidem [Ambien] 10 mg PO DAILY 06/09/17 oxyCODONE [oxyCODONE Immediate 10 mg PO Q8 06/09/17 Release Tab] Montelukast [Singulair] 10 mg PO HS #30 tab 06/13/17 Ticagrelor [Brilinta] 90 mg PO BID #60 tab 06/13/17 Hydroxychloroquine Sulfate 1 tab PO BID 08/01/17 [Plaquenil] Meloxicam [Mobic] 15 mg PO DAILY 08/01/17 Methylprednisolone [Medrol Dose 4 mg PO BID 08/01/17 Pack (21 tabs)] - Allergies Allergies/Adverse Reactions: Allergies Allergy/AdvReac Type Severity Reaction Status Date / Time No Known Allergies Allergy Verified 08/01/17 10:51 Review of Systems ROS Statement: Except As Marked, All Systems Reviewed And Found Negative Cardiovascular: Positive for: Chest Pain Gastrointestinal: Positive for: Abdominal Pain Musculoskeletal: Positive for: Shoulder Pain, Arm Pain Physical Exam - Reviewed Nursing Documentation Reviewed: Yes Vital Signs Reviewed: Yes - Physical Exam Appears: Positive for: Well, Non-toxic, No Acute Distress Head Exam: Positive for: ATRAUMATIC, NORMAL INSPECTION, NORMOCEPHALIC Skin: Positive for: Normal Color, Warm, DRY Eye Exam: Positive for: EOMI, Normal appearance, PERRL ENT: Positive for: Normal ENT Inspection Neck: Positive for: Normal, Painless ROM Cardiovascular/Chest: Positive for: Regular Rate, Rhythm. Negative for: Chest Non Tender (LEFT SIDED CHEST WALL TENDER) Respiratory: Positive for: CNT, Normal Breath Sounds Gastrointestinal/Abdominal: Positive for: Normal Exam, Bowel Sounds, Soft, Tenderness (LEFT LOWER ABD TENDER) Back: Positive for: Normal Inspection Extremity: Positive for: Normal ROM, Tenderness (LEFT ELBOW TENDERNESS. ABLE TO FLEX AND EXTEND. ), Other (SHOULDER: NO BONY TENDERNESS. NOTED LEFT PROXIMAL HUMERUS TENDERNESS. H/O BURSITIS LIMITED ROM.) Neurologic/Psych: Positive for: Alert, Oriented - Laboratory Results Result Diagrams: 08/01/17 11:00 08/01/17 11:00 - ECG O2 Sat by Pulse Oximetry: 100 - Progress ED Course And Treament: EKG: NSR 73 BPM; NO ECTOPY NO ACUTE CHANGES D/W DR. MONISHA COLLINS TROPONIN IS MILDLY ELEVATED. WILL EVALUATE INPATIENT. CT ABD/PELVIS: 1. No bony or visceral fracture appreciated throughout the examination. Note is made of thickening of the left rectus muscle thickening with local reaction suggestive of posttraumatic muscle contusion/tear with trace hematoma not completely excluded. 2. Otherwise nonacute chest, abdomen and pelvis CT. Calcified granuloma right pulmonary apex with minimal right apical pleural fibrosis noted. 3. No acute intra-abdominal or pelvic findings. Left colonic diverticulosis identified. d/w Family med resident typewriters functional tester for Dr. Hernandez. Admit to tele observation to Dr. Hernandez for elevated troponin,falls Disposition - Clinical Impression Clinical Impression: Fall, Chest pain, Elevated troponin - Patient ED Disposition Is Patient to be Admitted: Yes - Disposition Disposition Time: 15:30 Condition: FAIR - Pt Status Changed To: Hospital Disposition Of: Observation
--- NOTE | 2017-08-01 11:27 | RAD ---
PROCEDURE: Radiographs of the Left Shoulder HISTORY: Shoulder injury COMPARISON: No prior. FINDINGS: BONES: No evidence of acute displaced fracture nor dislocation. JOINTS: Minor degenerative osteoarthritis left acromioclavicular joint. There is a small elliptical shaped corticated bony density along the the superior margin of the left AC joint. SOFT TISSUES: Normal. OTHER FINDINGS: None. IMPRESSION: No evidence of acute displaced fracture nor dislocation. Minor DJD left acromioclavicular joint
--- NOTE | 2017-08-01 11:29 | RAD ---
HISTORY: CP COMPARISON: Comparison chest dated 06/09/2017 FINDINGS: LUNGS: No acute infiltrate or effusion. PLEURA: No significant pleural effusion identified, no pneumothorax apparent. CARDIOVASCULAR: Sternotomy wires and CABG clips again noted. Heart size within range of normal. OSSEOUS STRUCTURES: No significant abnormalities. VISUALIZED UPPER ABDOMEN: Normal. OTHER FINDINGS: None. IMPRESSION: No acute infiltrates.
--- NOTE | 2017-08-01 11:34 | CT ---
PROCEDURE: CT HEAD WITHOUT CONTRAST. HISTORY: HEAD INJURY COMPARISON: Unenhanced head CT 03/07/2008. TECHNIQUE: Axial computed tomography images were obtained through the head/brain without intravenous contrast. Radiation dose: Total exam DLP = 884.93 mGy-cm. This CT exam was performed using one or more of the following dose reduction techniques: Automated exposure control, adjustment of the mA and/or kV according to patient size, and/or use of iterative reconstruction technique. FINDINGS: HEMORRHAGE: No intracranial hemorrhage. BRAIN: Normal epstein-white matter differentiation and density are appreciated throughout the cerebrum and cerebellum with the brainstem appearing unremarkable as well. There is no mass effect. There is no suspicious extra-axial fluid collection and the midline brain anatomy appears diffusely unremarkable. VENTRICLES: Unremarkable. No hydrocephalus. CALVARIUM: No destructive bony lesion or displaced fracture identified including through the skullbase. PARANASAL SINUSES: Unremarkable as visualized. No significant inflammatory changes. MASTOID AIR CELLS: Unremarkable as visualized. No inflammatory changes. OTHER FINDINGS: None. IMPRESSION: Stable unremarkable unenhanced CT of the Head.
[2017-08-01 11:56] LABS: BASO # 0.1 K/uL (0.0-0.2); EOS # 0.1 K/uL (0.0-0.7); EOS % 1.3 % (0.0-4.0); HEMOGLOBIN 11.5 g/dL (12.0-18.0); LYMPH # 0.8 K/uL (1.0-4.3); LYMPH % 7.6 % (20.0-40.0); MEAN CELL VOLUME 82.8 fl (80.0-94.0); MEAN CORPUSCULAR HEMOGLOBIN 27.1 pg (27.0-31.0); MEAN CORPUSCULAR HGB CONC 32.7 g/dL (33.0-37.0); MEAN PLATELET VOLUME 8.3 fl (7.2-11.7); MONO # 1.4 K/uL (0.0-0.8); MONO % 13.5 % (0.0-10.0); NEUT # 7.9 K/uL (1.8-7.0); NEUT % 76.6 % (50.0-75.0); NRBC % 0.1 % (0.0-0.0); PLATELET COUNT 268 K/uL (130-400); RBC 4.23 Mil/uL (4.40-5.90); RED CELL DISTRIBUTION WIDTH 16.6 % (11.5-14.5); WHITE BLOOD COUNT 10.3 K/uL (4.8-10.8)
[2017-08-01 12:12] LABS: ALB/GLOB RATIO 1.2 (1.0-2.1); ALBUMIN 3.5 g/dL (3.5-5.0); ALT/SGPT 252 U/L (21-72); AST/SGOT 317 U/L (17-59); BLOOD UREA NITROGEN 39 mg/dl (9-20); CALCIUM 8.8 mg/dL (8.4-10.2); GFR AFRICAN-AMERICAN > 60; GFR NON-AFRICAN AMERICAN > 60
[2017-08-01 12:15] LABS: INR 0.9 (0.9-1.2); PROTHROMBIN TIME 10.4 Seconds (9.8-13.1)
[2017-08-01 12:16] LABS: PARTIAL THROMBOPLASTIN TIME 24.5 Seconds (25.6-37.1)
[2017-08-01] MEDS ORDERED: Sodium Chloride 0.9% 100 ML ONE (12:58)
[2017-08-01] MEDS ORDERED: Iohexol 300 100 ML IJ ONE (12:58)
[2017-08-01 13:57] LABS: EOSINOPHIL 2 % (0-7); LYMPHOCYTE 7 % (20-50); METAMYELOCYTE 4 % (0-0); MONOCYTE 6 % (0-10); MYELOCYTE 3 % (0-0); NEUTROPHIL 78 % (42-75); TOTAL CELLS COUNTED 100
[2017-08-01 13:58] LABS: PLATELET ESTIMATE NORMAL (NORMAL)
[2017-08-01 14:01] LABS: ANISOCYTOSIS SLIGHT
[2017-08-01 14:02] LABS: LARGE PLATELETS PRESENT; OVALOCYTES SLIGHT
--- NOTE | 2017-08-01 14:04 | CT ---
PROCEDURE: CT Chest, Abdomen and Pelvis with intravenous contrast HISTORY: S/P FALL. ON BRILINTA. LEFT SIDE CHEST/ABD PAIN COMPARISON: None. TECHNIQUE: IV dose administered: Omnipaque 300, 95 cc. Radiation dose: Total exam DLP = 1429.84 mGy-cm. This CT exam was performed using one or more of the following dose reduction techniques: Automated exposure control, adjustment of the mA and/or kV according to patient size, and/or use of iterative reconstruction technique. FINDINGS: CT CHEST WITH CONTRAST: LUNGS: Clear. No nodule, mass or consolidation. No pulmonary contusion apparent. MEDIASTINUM: Postop changes are appreciate compatible prior CABG. Normal caliber aorta and pulmonary arterial trunk. No aortic dissection. Normal size heart. LYMPH NODES: Unremarkable. PLEURA: Trace fibrosis right apex. A punctate calcified granulomas noted at the right apex as well. No pneumothorax. No pleural fluid. BONES: No fracture or destructive bony lesion identified. OTHER FINDINGS: None. CT ABDOMEN AND PELVIS: LIVER: Unremarkable. No gross lesion or ductal dilatation. GALLBLADDER AND BILE DUCTS: Unremarkable. PANCREAS: Unremarkable. No gross lesion or ductal dilatation. SPLEEN: Unremarkable. ADRENALS: Unremarkable. No mass. KIDNEYS AND URETERS: Unremarkable. No hydronephrosis. No solid mass. VASCULATURE: Limited aortic iliac atherosclerotic plaque. No aneurysm formation appreciated. BOWEL: Stomach is collapsed. Sigmoid diverticulosis identified without definite acute diverticulitis pattern. Descending colonic diverticula also identified, nonacute. No obstruction. No gross mural thickening. APPENDIX: Normal appendix. PERITONEUM: Unremarkable. No free fluid. No free air. LYMPH NODES: Unremarkable. No enlarged lymph nodes. BLADDER: Unremarkable. REPRODUCTIVE: Unremarkable. BONES: No fracture or destructive bony lesion identified. OTHER FINDINGS: Thickening of the left rectus musculature at the anterior abdominal wall with local reactive changes suggest posttraumatic reaction and potential limited hematoma though minimal if present. IMPRESSION: 1. No bony or visceral fracture appreciated throughout the examination. Note is made of thickening of the left rectus muscle thickening with local reaction suggestive of posttraumatic muscle contusion/tear with trace hematoma not completely excluded. 2. Otherwise nonacute chest, abdomen and pelvis CT. Calcified granuloma right pulmonary apex with minimal right apical pleural fibrosis noted. 3. No acute intra-abdominal or pelvic findings. Left colonic diverticulosis identified.
[2017-08-01] MEDS ORDERED: Morphine 4 MG/ML VIAL IVP ONE (14:19)
[2017-08-01] MEDS ORDERED: Morphine 4 MG/ML VIAL ONE (14:45)
--- NOTE | 2017-08-01 15:55 | RAD ---
PROCEDURE: Left elbow dated 08/01/2017. Three views of the left elbow performed. HISTORY: Elbow injury COMPARISON: No prior. FINDINGS: BONES: No definitive evidence of acute displaced fracture nor dislocation. Osseous structures appear intact. JOINTS: No significant osteoarthritis. SOFT TISSUES: There is moderate to fairly significant dorsal soft tissue swelling that extends from the level of the distal humerus to the proximal radius/ ulna. There is also of mild extension of soft tissue into the medial and to a lesser degree lateral soft tissues. . Note that the possibility of a concomitant mild acute bursitis not excluded JOINT EFFUSION: No large anterior nor significant posterior joint effusion is identified OTHER FINDINGS: None IMPRESSION: No evidence of acute displaced fracture nor dislocation. Note if symptoms persist or worsen consider follow-up MRI. Moderate to fairly significant dorsal soft tissue swelling. Note that the possibility of a the concomitant mild acute bursitis cannot be excluded
--- NOTE | 2017-08-01 16:23 | CP.PCM.HP ---
History of Present Illness - History of Present Illness History of Present Illness: 62 YO M with PMHx of CAD, CABG, HTN, LES? presented to the ER c/o left abd pain s/p fall Yesterday when he tripped going to [employer]. He hit the ground with the whole left side including head but denies LOC, vomiting, nausea, headache. Patient was recently DC from [facility] last month after presenting with NSTEMI and had a [place]iac [place] [facility] [place] that showed severe stenosis mid rCA s/p PCI drug eluting stent. As per patient he has Hx of LES and is starting to f/u with brusher machine. He admits Hx of joint pain(right now L/shoulder), facial rash and recently onset B/L hand rash. Patient also c/o B/L LE pain, has Hx of R/ knee Sx but he feels "his whole left leg has been failing him recently". Denies LE paresthesias, fever, vomiting or nausea. Present on Admission - Present on Admission Any Indicators Present on Admission: No Review of Systems - Review of Systems All systems: reviewed and no additional remarkable complaints except (Those described on HPI) Past Patient History - Past Medical History & Family History Past Medical History?: Yes - Past Social History Smoking Status: Former Smoker Drugs: Denies Home Situation {Lives}: With Family - CARDIAC Hx Hypercholesterolemia: Yes Hx Hypertension: Yes - PULMONARY Hx Chronic Obstructive Pulmonary Disease (COPD): Yes - NEUROLOGICAL Hx Neurological Disorder: No - HEENT Hx HEENT Problems: No - RENAL Hx Chronic Kidney Disease: No - ENDOCRINE/METABOLIC Hx Hypothyroidism: Yes - HEMATOLOGICAL/ONCOLOGICAL Hx Human Immunodeficiency Virus (HIV): No - INTEGUMENTARY Hx Dermatological Problems: No - MUSCULOSKELETAL/RHEUMATOLOGICAL Hx Arthritis: Yes - GASTROINTESTINAL Hx Diverticulitis: Yes - GENITOURINARY/GYNECOLOGICAL Hx Genitourinary Disorders: No - PSYCHIATRIC Hx Psychophysiologic Disorder: No Hx Substance Use: No - SURGICAL HISTORY Hx Coronary Artery Bypass Graft: Yes (CABG 3 VESSEL 2013) Hx Coronary Stent: Yes (06/2017) Hx Musculoskeletal Surgery: Yes (R/knee) - ANESTHESIA Hx Anesthesia: Yes Hx Anesthesia Reactions: No Hx Malignant Hyperthermia: No Meds Allergies/Adverse Reactions: Allergies Allergy/AdvReac Type Severity Reaction Status Date / Time No Known Allergies Allergy Verified 08/01/17 10:51 Physical Exam - Constitutional Appears: Non-toxic - Head Exam Additional comments: B/L Cheeks rash/telangiectasias - Eye Exam Eye Exam: PERRL. absent: Normal appearance (periorbital rash. Mild) - ENT Exam ENT Exam: Mucous Membranes Moist - Respiratory Exam Respiratory Exam: Chest Wall Tenderness (Left inferior chest), Clear to Auscultation Bilateral, NORMAL BREATHING PATTERN. absent: Decreased Breath Sounds, Rales, Wheezes, Respiratory Distress - Cardiovascular Exam Cardiovascular Exam: REGULAR RHYTHM, +S1, +S2. absent: Gallop - GI/Abdominal Exam GI & Abdominal Exam: Mass (left rectus abd muscle seems tender to palpation and swollen), Soft, Tenderness (Left periumbilical area/LUQ) - Extremities Exam Extremities exam: Positive for: tenderness (Mild. Left thigh). Negative for: calf tenderness, normal inspection (B/L hand rash, dorsal aspect) - Neurological Exam Neurological exam: Alert, Oriented x3 - Psychiatric Exam Psychiatric exam: Normal Affect, Normal Mood - Skin Skin Exam: Warm Results - Vital Signs Recent Vital Signs: Last Vital Signs Temp 98.2 F 08/01/17 10:17 Pulse 84 08/01/17 10:17 Resp 16 08/01/17 10:17 BP 128/72 08/01/17 10:17 Pulse Ox 100 08/01/17 15:30 - Labs Result Diagrams: 08/01/17 11:00 08/01/17 11:00 Labs: Laboratory Results - last 24 hr 08/01/17 08/01/17 08/01/17 11:00 11:00 11:00 WBC 10.3 RBC 4.23 L Hgb 11.5 L Hct 35.0 MCV 82.8 MCH 27.1 MCHC 32.7 L RDW 16.6 H Plt Count 268 MPV 8.3 Neut % (Auto) 76.6 H Lymph % (Auto) 7.6 L [place] % (Auto) 13.5 H Eos % (Auto) 1.3 Baso % (Auto) 1.0 Neut # (Auto) 7.9 H Lymph # (Auto) 0.8 L [place] # (Auto) 1.4 H Eos # (Auto) 0.1 Baso # (Auto) 0.1 Neutrophils % (Manual) 78 H Lymphocytes % (Manual) 7 L Monocytes % (Manual) 6 Eosinophils % (Manual) 2 Metamyelocytes % 4 H Myelocytes % 3 H Platelet Estimate Normal Large Platelets Present Anisocytosis (manual) Slight Ovalocytes Slight PT 10.4 INR 0.9 APTT 24.5 L Sodium 141 Potassium 4.5 Chloride 103 Carbon Dioxide 25 Anion Gap 18 BUN 39 H Creatinine 0.8 Est GFR ( Amer) > 60 Est GFR (Non-Af Amer) > 60 Random Glucose 103 Calcium 8.8 Total Bilirubin 0.4 AST 317 H ALT 252 H Alkaline Phosphatase 53 Troponin I 0.1650 H* Total Protein 6.6 Albumin 3.5 Globulin 3.0 Albumin/Globulin Ratio 1.2 Assessment & Plan - Assessment and Plan (Free Text) Assessment: 62 y/o M admitted for elevated trops and s/p fall with abd trauma for observation Elevated trops F/U trops q8h and repeat EKG AM Likely not acute since patient has elevated trop since NSTEMI last month EKG no acute ST or T waves changes Patient has no CP Abd trauma/Poss hematoma left rectus abdominis muscle NO apparent rib Fx or viscus damage on CT abd CXR Will send for Rib XRay Stable VS and Hgb Monitor Facial/Extremity rash Hx of LES? Patient is on Plaquenil Dermatomyositis? Patient has hx of muscle pain and rashes are similar to those found on this condition like Gottrons papules and Heliotrope rash. Also chronic elevation of liver enzimes CPK/ESR elevated ART/RF neg on previous admission F/U Dermatomyositis antibodies test Elevated liver enzimes Chronic, Improved POss due to autoimmune disorder/Connective tissue disease
[2017-08-01] MEDS ORDERED: oxyCODONE 10 mg ER Tab (oxyCONTIN) PO ONE (18:07)
[2017-08-01] MEDS: oxyCODONE 10 mg Immediate Release Tab PO SCH (18:10)
[2017-08-01] MEDS ORDERED: Sodium Chloride 0.9% 1,000 ML IV SCH (19:45)
[2017-08-01] MEDS: Sodium Chloride 0.9% 1,000 ML IV SCH (21:13)
--- NOTE | 2017-08-01 21:32 | CP.PCM.CON ---
History of Present Illness - History of Present Illness History of Present Illness: I was asked to see patient by Dr Hernandez. Patient is a 62 year old male with PMH HTN CAD s/p CABG, RCA stent on Brilinta who presents with fall. The patient was walking with his when he tripped and fell on his left chest. He has abrasions of his knees and soreness of the chest. He denies syncope. He presents for further evalaution. CT scan reveals post traumatic inflammation of the chest wall and a tear in the rectus muscle. The patient was admitted for chest pain. The patient has tenderness to palpation. Review of Systems - Constitutional Constitutional: absent: As Per HPI, Anorexia, Chills, Daytime Sleepiness, Excessive Sweating, Fatigue, Fever, Frequent Falls, Headache, Increased Appetite , Lethargy, Malaise, Night Sweats, Snoring, Sleep Apnea, Weight Gain, Weight Loss, Weakness, Other - EENT Eyes: absent: As Per HPI, Blind Spots, Blurred Vision, Change in Vision, Decreased Night Vision, Diplopia, Discharge, Dry Eye, Exophthalmos, Floaters, Irritation, Itchy Eyes, Loss of Peripheral Vision, Pain, Photophobia, Requires Corrective Lenses, Sees Flashes, Spots in Vision, Tunnel Vision, Other Visual Disturbances, Loss of Vision, Other Ears: absent: As Per HPI, Decreased Hearing, Ear Discharge, Ear Pain, Tinnitus, Abnormal Hearing, Disequilibrium, Dizziness, Other Nose/Mouth/Throat: absent: As Per HPI, Epistaxis, Nasal Congestion, Nasal Discharge, Nasal Obstruction, Nasal Trauma, Nose Pain, Post Nasal Drip, Sinus Pain, Sinus Pressure, Bleeding Gums, Change in Voice, Dental Pain, Dry Mouth, Dysphagia, Halitosis, Hoarsness, Lip Swelling, Mouth Lesions, Mouth Pain, Odynophagia, Sore Throat, Throat Swelling, Tongue Swelling, Facial Pain, Neck Pain, Neck Mass, Other - Cardiovascular Cardiovascular: absent: As Per HPI, Acrocyanosis, Chest Pain, Chest Pain at Rest , Chest Pain with Activity, Claudication, Diaphoresis, Dyspnea, Dyspnea on Exertion, Edema, Irregular Heart Rhythm, Pain Radiating to Arm/Neck/Jaw, Leg Edema, Leg Ulcers, Lightheadedness, Orthopnea, Palpitations, Paroxysmal Nocturnal Dyspnea, Pedal Edema, Radiating Pain, Rapid Heart Rate, Slow Heart Rate, Syncope, Other - Respiratory Respiratory: absent: As Per HPI, Cough, Dyspnea, Hemoptysis, Dyspnea on Exertion , Wheezing, Snoring, Stridor, Pain on Inspiration, Chest Congestion, Excessive Mucous Production, Change in Mucous Color, Pain with Coughing, Other - Gastrointestinal Gastrointestinal: absent: As Per HPI, Abdominal Pain, Belching, Bloating, Change in Bowel Habits, Change in Stool Character, Coffee Ground Emesis, Constipation, Cramping, Diarrhea, Dyspepsia, Dysphagia, Early Satiety, Excessive Flatus, Fecal Incontinence, Heartburn, Hematemesis, Hematochezia, Loose Stools, Melena, Nausea, Odynophagia, Temesmus, Vomiting, Other - Genitourinary Genitourinary: absent: As Per HPI, Change in Urinary Stream, Difficulty Urinating, Dysuria, Flank Pain, Hematuria, Pyuria, Nocturia, Urinary Incontinence, Urinary Frequency, Urinary Hesitance, Urinary Urgency, Voiding Freq/Small Amts, Freq UTI, Hx Renal/Bladder Calculi, Hx /Renal Surgery, Bladder Distension, Other - Musculoskeletal Additional comments: chest wall tenderness on palpation. - Integumentary Integumentary: absent: As Per HPI, Acne, Alopecia, Bleeding Lesions, Change in Hair, Change in Nails, Change in Pigmentation, Changing Lesions, Dry Skin, Erythema, Furuncle, Hirsutism, Lesions, New Lesions, Non-Healing Lesions, Photosensitivity, Pruritus, Rash, Skin Pain, Skin Ulcer, Sores, Striae, Swelling , Unusual Bruising, Wounds, Jaundice, Other - Neurological Neurological: absent: As Per HPI, Abnormal Gait, Abnormal Hearing, Abnormal Movements, Abnormal Speech, Behavioral Changes, Burning Sensations, Confusion, Convulsions, Disequilibrium, Dizziness, Numbness, Focal Weakness, Frequent Falls , Headaches, Lack of Coordination, Loss of Vision, Memory Loss, Paresthesias, Radicular Pain, Restless Legs, Sensory Deficit, Syncope, Tingling, Tremor, Vertigo, Weakness, Other Visual Disturbances, Other - Psychiatric Psychiatric: absent: As Per HPI, Abnormal Sleep Pattern, Anhedonia, Anxiety, Auditory Hallucinations, Behavioral Changes, Change in Appetite, Change in Libido, Confusion, Depression, Difficulty Concentrating, Hallucinations, Homicidal Ideation, Hopelessness, Irritability, Memory Loss, Mood Swings, Panic Attacks, Paranoia, Suicidal Ideation, Visual Hallucinations, Tactile Hallucinations, Other - Endocrine Endocrine: absent: As Per HPI, Change in Body Appearance, Change in Libido, Cold Intolorance, Deepening of Voice, Excessive Sweating, Fatigue, Flushing, Heat Intolorance, Increase in Ring/Shoe/Hat Size, Palpitations, Polydipsia, Polyphagia, Polyuria, Other - Hematologic/Lymphatic Hematologic: absent: As Per HPI, Easy Bleeding, Easy Bruising, Lymphadenopathy, Other Past Patient History - Past Medical History & Family History Past Medical History?: Yes - Past Social History Smoking Status: Former Smoker Drugs: Denies Home Situation {Lives}: With Family - CARDIAC Hx Hypercholesterolemia: Yes Hx Hypertension: Yes - PULMONARY Hx Chronic Obstructive Pulmonary Disease (COPD): Yes - NEUROLOGICAL Hx Neurological Disorder: No - HEENT Hx HEENT Problems: No - RENAL Hx Chronic Kidney Disease: No - ENDOCRINE/METABOLIC Hx Hypothyroidism: Yes - HEMATOLOGICAL/ONCOLOGICAL Hx Human Immunodeficiency Virus (HIV): No - INTEGUMENTARY Hx Dermatological Problems: No - MUSCULOSKELETAL/RHEUMATOLOGICAL Hx Arthritis: Yes - GASTROINTESTINAL Hx Diverticulitis: Yes - GENITOURINARY/GYNECOLOGICAL Hx Genitourinary Disorders: No - PSYCHIATRIC Hx Psychophysiologic Disorder: No Hx Substance Use: No - SURGICAL HISTORY Hx Coronary Artery Bypass Graft: Yes (CABG 3 VESSEL 2013) Hx Coronary Stent: Yes (06/2017) Hx Musculoskeletal Surgery: Yes (R/knee) - ANESTHESIA Hx Anesthesia: Yes Hx Anesthesia Reactions: No Hx Malignant Hyperthermia: No Meds Allergies/Adverse Reactions: Allergies Allergy/AdvReac Type Severity Reaction Status Date / Time No Known Allergies Allergy Verified 08/01/17 10:51 - Medications Medications: Current Medications Acetaminophen (Tylenol 325mg Tab) 650 mg PO Q6 PRN PRN Reason: Pain, moderate (4-7) Alprazolam (Xanax) 0.5 mg PO BID [facility] Last Admin: 08/01/17 18:11 Dose: 0.5 mg Aspirin (Aspirin Chewable) 81 mg PO DAILY [facility] Celecoxib (Celebrex) 200 mg PO DAILY [facility] Famotidine (Pepcid) 20 mg PO BID [facility] Last Admin: 08/01/17 18:11 Dose: 20 mg Home Med (Glycopyrrolate/Formoterol Fum [Bevespi Aerosphere Inhaler]) 10.7 gm IH BID [facility] Hydroxychloroquine Sulfate (Plaquenil) 200 mg PO BID [facility] PRN Reason: Protocol Sodium Chloride (Sodium Chloride 0.9%) 1,000 mls @ 80 mls/hr IV .[id number] [facility] Stop: 08/02/17 20:58 Last Admin: 08/01/17 21:13 Dose: 80 mls/hr Levothyroxine Sodium (Synthroid) 25 mcg PO DAILY [facility] Methylprednisolone (Medrol) 4 mg PO BID [facility] Metoprolol Succinate (Toprol Xl) 50 mg PO DAILY [facility] Montelukast Sodium (Singulair) 10 mg PO HS [facility] Naproxen (Naproxen) 500 mg PO Q12 [facility] Oxycodone HCl (Oxycodone Immediate Release Tab) 10 mg PO Q8 [facility] Last Admin: 08/01/17 18:10 Dose: 10 mg Pantoprazole Sodium (Protonix Ec Tab) 40 mg PO DAILY [facility] Ticagrelor (Brilinta) 90 mg PO BID [facility] Last Admin: 08/01/17 18:10 Dose: 90 mg Valsartan (Diovan) 160 mg PO DAILY [facility] Zolpidem Tartrate (Ambien) 5 mg PO HS [facility] Physical Exam - Constitutional Appears: Non-toxic - Head Exam Head Exam: NORMAL INSPECTION - Eye Exam Eye Exam: Normal appearance - ENT Exam ENT Exam: Mucous Membranes Moist - Neck Exam Neck exam: Positive for: Full Rom - Respiratory Exam Respiratory Exam: Decreased Breath Sounds - Cardiovascular Exam Cardiovascular Exam: REGULAR RHYTHM - GI/Abdominal Exam GI & Abdominal Exam: Normal Bowel Sounds - Rectal Exam Rectal Exam: Deferred - Extremities Exam Extremities exam: Negative for: pedal edema - Back Exam Back exam: NORMAL INSPECTION - Neurological Exam Neurological exam: Alert, Oriented x3 - Psychiatric Exam Psychiatric exam: Normal Affect - Skin Skin Exam: Normal Color Results - Vital Signs Recent Vital Signs: Last Vital Signs Temp 98.7 F 08/01/17 19:36 Pulse 95 H 08/01/17 19:36 Resp 19 08/01/17 19:36 BP 145/77 08/01/17 19:36 Pulse Ox 99 08/01/17 19:36 - Labs Result Diagrams: 08/01/17 11:00 08/01/17 11:00 Labs: Laboratory Results - last 24 hr 08/01/17 08/01/17 08/01/17 11:00 11:00 11:00 WBC 10.3 RBC 4.23 L Hgb 11.5 L Hct 35.0 MCV 82.8 MCH 27.1 MCHC 32.7 L RDW 16.6 H Plt Count 268 MPV 8.3 Neut % (Auto) 76.6 H Lymph % (Auto) 7.6 L [place] % (Auto) 13.5 H Eos % (Auto) 1.3 Baso % (Auto) 1.0 Neut # (Auto) 7.9 H Lymph # (Auto) 0.8 L [place] # (Auto) 1.4 H Eos # (Auto) 0.1 Baso # (Auto) 0.1 Neutrophils % (Manual) 78 H Lymphocytes % (Manual) 7 L Monocytes % (Manual) 6 Eosinophils % (Manual) 2 Metamyelocytes % 4 H Myelocytes % 3 H Platelet Estimate Normal Large Platelets Present Anisocytosis (manual) Slight Ovalocytes Slight ESR PT 10.4 INR 0.9 APTT 24.5 L Sodium 141 Potassium 4.5 Chloride 103 Carbon Dioxide 25 Anion Gap 18 BUN 39 H Creatinine 0.8 Est GFR ( Amer) > 60 Est GFR (Non-Af Amer) > 60 Random Glucose 103 Calcium 8.8 Total Bilirubin 0.4 AST 317 H ALT 252 H Alkaline Phosphatase 53 Total Creatine Kinase Troponin I 0.1650 H* Total Protein 6.6 Albumin 3.5 Globulin 3.0 Albumin/Globulin Ratio 1.2 08/01/17 08/01/17 16:54 16:54 WBC RBC Hgb Hct MCV MCH MCHC RDW Plt Count MPV Neut % (Auto) Lymph % (Auto) [place] % (Auto) Eos % (Auto) Baso % (Auto) Neut # (Auto) Lymph # (Auto) [place] # (Auto) Eos # (Auto) Baso # (Auto) Neutrophils % (Manual) Lymphocytes % (Manual) Monocytes % (Manual) Eosinophils % (Manual) Metamyelocytes % Myelocytes % Platelet Estimate Large Platelets Anisocytosis (manual) Ovalocytes ESR 29 H PT INR APTT Sodium Potassium Chloride Carbon Dioxide Anion Gap BUN Creatinine Est GFR ( Amer) Est GFR (Non-Af Amer) Random Glucose Calcium Total Bilirubin AST ALT Alkaline Phosphatase Total Creatine Kinase 5280 H Troponin I Total Protein Albumin Globulin Albumin/Globulin Ratio - EKG Data EKG shows normal: Sinus rhythm Assessment & Plan (1) Chest pain Assessment and Plan: patient's pain is clearly musculoskeletal in origin. Although there is elevation in troponin this is nonspecific and not inidcative of ACS. I recommend continued ASA/Brilinta given recent stent of the RCA. No further cardiac testing is necessary. Status: Acute (2) CAD (coronary artery disease) Status: Chronic
[2017-08-01] MEDS: Naproxen 500 MG TAB PO SCH (21:57)
[2017-08-02] MEDS: oxyCODONE 10 mg Immediate Release Tab PO SCH ×2 (00:50→08:24)
[2017-08-02 07:14] LABS: BASO # 0.1 K/uL (0.0-0.2); EOS # 0.1 K/uL (0.0-0.7); EOS % 1.5 % (0.0-4.0); HEMOGLOBIN 10.7 g/dL (12.0-18.0); LYMPH # 0.6 K/uL (1.0-4.3); MEAN CELL VOLUME 83.1 fl (80.0-94.0); MEAN CORPUSCULAR HEMOGLOBIN 27.2 pg (27.0-31.0); MEAN CORPUSCULAR HGB CONC 32.7 g/dL (33.0-37.0); MEAN PLATELET VOLUME 8.4 fl (7.2-11.7); MONO # 0.9 K/uL (0.0-0.8); NEUT # 6.9 K/uL (1.8-7.0); NEUT % 80.5 % (50.0-75.0); NRBC % 0.1 % (0.0-0.0); RBC 3.95 Mil/uL (4.40-5.90); RED CELL DISTRIBUTION WIDTH 17.2 % (11.5-14.5); WHITE BLOOD COUNT 8.6 K/uL (4.8-10.8)
[2017-08-02 07:21] LABS: ALB/GLOB RATIO 1.2 (1.0-2.1); ALBUMIN 3.4 g/dL (3.5-5.0); ALT/SGPT 239 U/L (21-72); AST/SGOT 315 U/L (17-59); BLOOD UREA NITROGEN 37 mg/dl (9-20); CALCIUM 8.4 mg/dL (8.4-10.2); GFR AFRICAN-AMERICAN > 60; GFR NON-AFRICAN AMERICAN > 60
[2017-08-02] MEDS: Naproxen 500 MG TAB PO SCH (08:13)
[2017-08-02] MEDS: Sodium Chloride 0.9% 1,000 ML IV SCH (08:28)
[2017-08-02] MEDS ORDERED: GLYCOPYRROLATE IH SCH (09:00)
[2017-08-02] MEDS ORDERED: Levothyroxine 25 MCG TAB PO SCH (09:00)
[2017-08-02] MEDS ORDERED: FORMOTEROL FUM IH SCH (09:00)
[2017-08-02] MEDS ORDERED: Metoprolol Succinate 50 mg XL Tab PO SCH (09:00)
[2017-08-02] MEDS ORDERED: Pantoprazole 40 mg EC Tab PO SCH (09:00)
--- NOTE | 2017-08-02 09:50 | CARD ---
APPROVED REPORT EKG Measurement Heart [id number] <Conclusion> Normal sinus rhythm Left axis deviation Abnormal ECG baseline artefact
[2017-08-02 12:25] VITALS: BP 106/62; PULSE 82; RESP 18; TEMP 98.2; O2SAT 96
--- NOTE | 2017-08-02 14:07 | CP.PCM.DIS ---
Provider - Provider Date of Admission: 08/01/17 14:49 Attending physician: Sony Hernandez MD Hospital Course - Lab Results Lab Results: Most Recent Lab Values WBC 8.6 K/uL (4.8-10.8) 08/02/17 06:30 RBC 3.95 Mil/uL (4.40-5.90) L 08/02/17 06:30 Hgb 10.7 g/dL (12.0-18.0) L 08/02/17 06:30 Hct 32.8 % (35.0-51.0) L 08/02/17 06:30 MCV 83.1 fl (80.0-94.0) 08/02/17 06:30 MCH 27.2 pg (27.0-31.0) 08/02/17 06:30 MCHC 32.7 g/dL (33.0-37.0) L 08/02/17 06:30 RDW 17.2 % (11.5-14.5) H 08/02/17 06:30 Plt Count 251 K/uL (130-400) 08/02/17 06:30 MPV 8.4 fl (7.2-11.7) 08/02/17 06:30 Neut % (Auto) 80.5 % (50.0-75.0) H 08/02/17 06:30 Lymph % (Auto) 7.0 % (20.0-40.0) L 08/02/17 06:30 [place] % (Auto) 10.0 % (0.0-10.0) 08/02/17 06:30 Eos % (Auto) 1.5 % (0.0-4.0) 08/02/17 06:30 Baso % (Auto) 1.0 % (0.0-2.0) 08/02/17 06:30 Neut # (Auto) 6.9 K/uL (1.8-7.0) 08/02/17 06:30 Lymph # (Auto) 0.6 K/uL (1.0-4.3) L 08/02/17 06:30 [place] # (Auto) 0.9 K/uL (0.0-0.8) H 08/02/17 06:30 Eos # (Auto) 0.1 K/uL (0.0-0.7) 08/02/17 06:30 Baso # (Auto) 0.1 K/uL (0.0-0.2) 08/02/17 06:30 Neutrophils % (Manual) 78 % (42-75) H 08/01/17 11:00 Lymphocytes % (Manual) 7 % (20-50) L 08/01/17 11:00 Monocytes % (Manual) 6 % (0-10) 08/01/17 11:00 Eosinophils % (Manual) 2 % (0-7) 08/01/17 11:00 Metamyelocytes % 4 % (0-0) H 08/01/17 11:00 Myelocytes % 3 % (0-0) H 08/01/17 11:00 Platelet Estimate Normal (NORMAL) 08/01/17 11:00 Large Platelets Present 08/01/17 11:00 Anisocytosis (manual) Slight 08/01/17 11:00 Ovalocytes Slight 08/01/17 11:00 ESR 29 mm/hr (0-20) H 08/01/17 16:54 PT 10.4 Seconds (9.8-13.1) 08/01/17 11:00 INR 0.9 (0.9-1.2) 08/01/17 11:00 APTT 24.5 Seconds (25.6-37.1) L 08/01/17 11:00 Sodium 137 mmol/l (132-148) 08/02/17 06:30 Potassium 4.5 MMOL/L (3.6-5.0) 08/02/17 06:30 Chloride 100 mmol/L (98-107) 08/02/17 06:30 Carbon Dioxide 27 mmol/L (22-30) 08/02/17 06:30 Anion Gap 15 (10-20) 08/02/17 06:30 BUN 37 mg/dl (9-20) H 08/02/17 06:30 Creatinine 0.8 mg/dl (0.8-1.5) 08/02/17 06:30 Est GFR ( Amer) > 60 08/02/17 06:30 Est GFR (Non-Af Amer) > 60 08/02/17 06:30 Random Glucose 85 mg/dL (75-110) 08/02/17 06:30 Calcium 8.4 mg/dL (8.4-10.2) 08/02/17 06:30 Total Bilirubin 0.3 mg/dl (0.2-1.3) 08/02/17 06:30 AST 315 U/L (17-59) H 08/02/17 06:30 ALT 239 U/L (21-72) H 08/02/17 06:30 Alkaline Phosphatase 50 U/L (38-126) 08/02/17 06:30 Total Creatine Kinase 5280 U/L (55-170) H 08/01/17 16:54 Troponin I 0.1600 ng/mL (0.00-0.120) H* 08/02/17 04:46 Total Protein 6.4 G/DL (6.3-8.2) 08/02/17 06:30 Albumin 3.4 g/dL (3.5-5.0) L 08/02/17 06:30 Globulin 2.9 gm/dL (2.2-3.9) 08/02/17 06:30 Albumin/Globulin Ratio 1.2 (1.0-2.1) 08/02/17 06:30 - Hospital Course Hospital Course: This is a 62 y/o male admitted for chest wall pain after a fall. He was noted to have elevated troponin. Seen by Dr Reid and was observed. Discharge Exam - Head Exam Head Exam: NORMAL INSPECTION Discharge Plan - Follow Up Plan Condition: FAIR Disposition: HOME/ ROUTINE
== END 2017-08-02 15:04 | disposition home or self-care (01) | DRG 313 ==
LOC: H.ER 10:11 → H.ERHOLD 14:49 → H.TEL 18:29
PROVIDERS: ADMIT Family Medicine; ATTEND Family Medicine
DX: R07.89 Other chest pain (principal); M33.13 Other dermatomyositis without myopathy; I25.10 Atherosclerotic heart disease of native coronary artery without angina pectoris; I10 Essential (primary) hypertension; R21 Rash and other nonspecific skin eruption; I25.2 Old myocardial infarction; S80.212A Abrasion, left knee, initial encounter; S80.211A Abrasion, right knee, initial encounter; W01.0XXA Fall on same level from slipping, tripping and stumbling without subsequent striking against object, initial encounter; E03.9 Hypothyroidism, unspecified; E78.00 Pure hypercholesterolemia, unspecified; R74.8 Abnormal levels of other serum enzymes; R70.0 Elevated erythrocyte sedimentation rate; J44.9 Chronic obstructive pulmonary disease, unspecified; M19.90 Unspecified osteoarthritis, unspecified site; Z95.1 Presence of aortocoronary bypass graft; Z95.5 Presence of coronary angioplasty implant and graft; Z87.891 Personal history of nicotine dependence; Z86.010 Personal history of colon polyps; Z79.1 Long term (current) use of non-steroidal anti-inflammatories (NSAID); Y92.9 Unspecified place or not applicable

== ENCOUNTER 2017-09-15 13:16 | Inpatient (IN) | payer OTHER, MEDICARE ==
[2017-09-15 13:17] VITALS: BMI 27.1
[2017-09-15] MEDS ORDERED: Nitroglycerin 2% Ointment Foilpak UD TOP STA (14:30)
[2017-09-15 14:50] LABS: BASO % 0.3 % (0.0-2.0); EOS % 0.1 % (0.0-4.0); HEMOGLOBIN 11.7 g/dL (12.0-18.0); LYMPH # 0.4 K/uL (1.0-4.3); LYMPH % 2.9 % (20.0-40.0); MEAN CELL VOLUME 85.9 fl (80.0-94.0); MEAN CORPUSCULAR HEMOGLOBIN 27.7 pg (27.0-31.0); MEAN CORPUSCULAR HGB CONC 32.3 g/dL (33.0-37.0); MEAN PLATELET VOLUME 7.9 fl (7.2-11.7); MONO % 7.8 % (0.0-10.0); NEUT # 11.8 K/uL (1.8-7.0); NEUT % 88.9 % (50.0-75.0); PLATELET COUNT 368 K/uL (130-400); RBC 4.21 Mil/uL (4.40-5.90); RED CELL DISTRIBUTION WIDTH 17.9 % (11.5-14.5); WHITE BLOOD COUNT 13.3 K/uL (4.8-10.8)
[2017-09-15 14:57] LABS: ALB/GLOB RATIO 1.1 (1.0-2.1); ALBUMIN 3.5 g/dL (3.5-5.0); ALT/SGPT 266 U/L (21-72); AST/SGOT 255 U/L (17-59); BLOOD UREA NITROGEN 23 mg/dl (9-20); CALCIUM 8.7 mg/dL (8.4-10.2); GFR AFRICAN-AMERICAN > 60; GFR NON-AFRICAN AMERICAN > 60
[2017-09-15] MEDS ORDERED: Nitroglycerin 2% Ointment Foilpak UD TOP ONE (15:03)
[2017-09-15] MEDS ORDERED: Morphine 4 MG/ML VIAL ONE (15:05)
--- NOTE | 2017-09-15 15:09 | ED PDOC ---
HPI: Chest Pain Time Seen by Provider: 09/15/17 14:16 Chief Complaint (Nursing): Chest Pain Chief Complaint (Provider): chest pain History Per: Patient History/Exam Limitations: no limitations Onset/Duration Of Symptoms: Days (x2) Current Symptoms Are (Timing): Still Present Associated Symptoms: Dyspnea Additional Complaint(s): William Morris is a 62 year old male, with a past medical history of CAD, CHF, lupus and on steroids, who presents to the emergency department complaining of a worsening chest pain, shortness of breath and swelling of extremities onset for x2 days. Patient reports non productive cough. He denies any fever, chills, vomiting or diarrhea. No further medical complaints. PMD: Seth Jenkins Past Medical History Reviewed: Historical Data, Nursing Documentation, Vital Signs Vital Signs: Last Vital Signs Temp 98.0 F 09/15/17 13:26 Pulse 78 09/15/17 15:17 Resp 20 09/15/17 13:26 BP 146/87 09/15/17 15:17 Pulse Ox 99 09/15/17 15:24 - Medical History PMH: Arthritis, CAD, CHF, Colonic Polyps, COPD, Diverticulitis, HTN, Hypercholesterolemia, Hypothyroidism, Rheumatoid Arthritis Denies: Deep Vein Thrombosis, HIV, Chronic Kidney Disease Other PMH: Lupus - Surgical History Surgical History: CABG (triple 06/07/2013), Coronary Stent (06/2017), Endoscopy - Family History Family History: States: Unknown Family Hx - Social History Ex-Smoker (has not smoked in the last 12 months): Yes Alcohol: None Drugs: Denies - Immunization History Hx Tetanus Toxoid Vaccination: No Hx Influenza Vaccination: No Hx Pneumococcal Vaccination: No - Home Medications Home Medications: Ambulatory Orders Medication Instructions Recorded Acetaminophen/Oxycodone Hydr 1 tab PO Q4H 09/15/17 [Percocet 10/325 mg Tab] Alprazolam [Xanax] 0.5 mg PO TID 09/15/17 Aspirin [Aspirin Chewable] 81 mg PO DAILY 09/15/17 Levothyroxine [Levoxyl] 0.025 mg PO DAILY 09/15/17 Metoprolol Succinate [Toprol XL] 50 mg PO QD5 09/15/17 Pantoprazole Sodium [Protonix] 40 mg PO DAILY 09/15/17 Prednisone [Deltasone] 20 mg PO TID 09/15/17 Ticagrelor [Brilinta] 90 mg PO BID 09/15/17 Valsartan [Diovan] 160 mg PO DAILY 09/15/17 Zolpidem [Ambien] 10 mg PO HS 09/15/17 azaTHIOprine [Azathioprine] 50 mg PO BID 09/15/17 - Allergies Allergies/Adverse Reactions: Allergies Allergy/AdvReac Type Severity Reaction Status Date / Time No Known Allergies Allergy Verified 09/15/17 13:26 Review of Systems ROS Statement: Except As Marked, All Systems Reviewed And Found Negative Constitutional: Negative for: Fever, Chills Cardiovascular: Positive for: Chest Pain, Other (swelling of extremities) Respiratory: Positive for: Cough (non productive), Shortness of Breath Gastrointestinal: Negative for: Vomiting, Diarrhea Physical Exam - Reviewed Nursing Documentation Reviewed: Yes Vital Signs Reviewed: Yes - Physical Exam Appears: Positive for: Non-toxic Head Exam: Positive for: ATRAUMATIC, NORMOCEPHALIC Skin: Positive for: Normal Color, Warm, Dry Eye Exam: Positive for: Normal appearance Neck: Positive for: Painless ROM Cardiovascular/Chest: Positive for: Regular Rate, Rhythm. Negative for: Murmur Respiratory: Positive for: Rales (at bases b/l). Negative for: Wheezing, Respiratory Distress Gastrointestinal/Abdominal: Positive for: Normal Exam, Soft. Negative for: Tenderness Extremity: Positive for: Normal ROM, Swelling (1+ edema to b/l lower extremities ). Negative for: Deformity Neurologic/Psych: Positive for: Alert, Oriented. Negative for: Motor/Sensory Deficits - Laboratory Results Result Diagrams: 09/15/17 14:30 09/15/17 14:30 - ECG O2 Sat by Pulse Oximetry: 99 (RA) Pulse Ox Interpretation: Normal Medical Decision Making Medical Decision Making: Initial Plan: --EKG --B-Type Natriuretic Peptide --CMP --Troponin I --Urine dipstick --CBC w/ differential --Chest portable [RAD] --Lasix 40 mg IVP --Morphine 2mg IVP --Nitro-Bid 2% oint 1 ea TOP --Reevaluation Scribe Attestation: Documented by Kenneth Brunner, acting as a scribe for Ronnie Cruz MD Provider Scribe Attestation: All medical record entries made by the Scribe were at my direction and personally dictated by me. I have reviewed the chart and agree that the record accurately reflects my personal performance of the history, physical exam, medical decision making, and the department course for this patient. I have also personally directed, reviewed, and agree with the discharge instructions and disposition. Disposition - Clinical Impression Clinical Impression: NSTEMI (non-ST elevated myocardial infarction), CHF (congestive heart failure) - Patient ED Disposition Is Patient to be Admitted: Yes - Disposition Disposition Time: 15:43 Condition: FAIR Forms: [employer] (Malay) - Pt Status Changed To: Hospital Disposition Of: Inpatient - Admit Certification Admit to Inpatient:: After my assessment, the patient will require hospitalization for at least two midnights. This is because of the severity of symptoms shown, intensity of services needed, and/or the medical risk in this patient being treated as an outpatient. - POA Present On Arrival: None
[2017-09-15 15:12] LABS: B-TYPE NATRIURETIC PEPTIDE 526 pg/ml (0-900)
--- NOTE | 2017-09-15 15:16 | RAD ---
HISTORY: Cough. COMPARISON: 08/01/2017 FINDINGS: LUNGS: No active pulmonary disease. PLEURA: No significant pleural effusion identified, no pneumothorax apparent. CARDIOVASCULAR: No radiographic findings to suggest acute or significant cardiovascular disease. Incidental Finding(s): Postoperative changes related to sternotomy. OSSEOUS STRUCTURES: No significant abnormalities. VISUALIZED UPPER ABDOMEN: Normal. OTHER FINDINGS: None. IMPRESSION: No active disease. No significant interval change compared to the prior examination(s).
[2017-09-15 16:00] LABS: ANISOCYTOSIS SLIGHT; BANDS 1 % (0-2); HYPOCHROMIC SLIGHT; LYMPHOCYTE 7 % (20-50); MONOCYTE 10 % (0-10); NEUTROPHIL 82 % (42-75); OVALOCYTES SLIGHT; PLATELET ESTIMATE NORMAL (NORMAL); SCHISTOCYTES SLIGHT; TEARDROP CELLS SLIGHT; TOTAL CELLS COUNTED 100
[2017-09-15] MEDS ORDERED: Patient's Own Med (Acetaminophen/Oxycodone Hydr [Percocet 10/325 Mg Tab] 1 TAB) PO SCH (20:30)
[2017-09-15] MEDS ORDERED: Oxycodone/Acetaminophen 5/325 mg Tab PO SCH (21:00)
[2017-09-15] MEDS: Oxycodone/Acetaminophen 5/325 mg Tab PO SCH (21:25)
[2017-09-15] MEDS: Metoprolol Succinate 50 mg XL Tab PO SCH (21:43)
[2017-09-15] MEDS ORDERED: Patient's Own Med (Zolpidem [Ambien] 10 MG) PO SCH (22:00)
[2017-09-16] MEDS: Oxycodone/Acetaminophen 5/325 mg Tab PO SCH ×6 (01:25→22:20)
[2017-09-16] MEDS: Levothyroxine 25 MCG TAB PO SCH (05:30)
[2017-09-16] MEDS: Pantoprazole 40 mg EC Tab PO SCH (09:42)
--- NOTE | 2017-09-16 11:04 | CP.PCM.HP ---
History of Present Illness - History of Present Illness History of Present Illness: 62 yo ,m, PMHx/o SLE on steroids, COPD, CHF, CAD s/p CABG (triple 06/07/2013), 3 stent last one 06/2017 presents c/o chest pain started 2 days ago, intermittent , stabbing, no reproducible, 6/10 intensity, not radiated, associated with exertional SOB when walking at home and b/l leg swelling and leg muscle weakness. Patient reports similar chest pain episodes like this before, and reports that SOB is chronic for about 1 year, but it has been getting worse lately . Reports productive cough with yellowish expectoration for some days. Denies fever, n,v,abd pain, diarrhea, lightheadedness. PMD: [facility] Coordinator: Dr Godwin Allergies: NKDA Psurghx: CABG, Right knee replacement. PShx: ETOH quit 6 years ago, former smoker, 1 PPD x 20 years. Quit 5 years ago, denies rect drugs. Present on Admission - Present on Admission Any Indicators Present on Admission: No History of DVT/PE: No History of Uncontrolled Diabetes: No Urinary Catheter: No Decubitus Ulcer Present: No Review of Systems - Review of Systems All systems: reviewed and no additional remarkable complaints except - Cardiovascular Cardiovascular: Chest Pain - Respiratory Respiratory: Cough, Dyspnea on Exertion Past Patient History - Past Medical History & Family History Past Medical History?: Yes - Past Social History Smoking Status: Former Smoker - CARDIAC Hx Cardiac Disorders: Yes Hx Congestive Heart Failure: Yes Hx Hypercholesterolemia: Yes Hx Hypertension: Yes - PULMONARY Hx Respiratory Disorders: Yes Hx Chronic Obstructive Pulmonary Disease (COPD): Yes - NEUROLOGICAL Hx Neurological Disorder: No Other/Comment: Patient being worked up for possible MS/PD - HEENT Hx HEENT Problems: No - RENAL Hx Chronic Kidney Disease: No - ENDOCRINE/METABOLIC Hx Endocrine Disorders: Yes Hx Hypothyroidism: Yes - HEMATOLOGICAL/ONCOLOGICAL Hx Blood Disorders: No Hx AIDS: No Hx Human Immunodeficiency Virus (HIV): No - INTEGUMENTARY Hx Dermatological Problems: No - MUSCULOSKELETAL/RHEUMATOLOGICAL Hx Musculoskeletal Disorders: Yes Hx Falls: Yes Hx Rheumatoid Arthritis: Yes Hx Unsteady Gait: Yes - GASTROINTESTINAL Hx Gastrointestinal Disorders: Yes Hx Diverticulitis: Yes - GENITOURINARY/GYNECOLOGICAL Hx Genitourinary Disorders: No - PSYCHIATRIC Hx Psychophysiologic Disorder: No Hx Substance Use: No - SURGICAL HISTORY Hx Surgeries: Yes Hx Coronary Artery Bypass Graft: Yes (triple 06/07/2013) Hx Coronary Stent: Yes (06/2017) Hx Joint Replacement: Yes (Right total knee) - ANESTHESIA Hx Anesthesia: Yes Hx Anesthesia Reactions: No Hx Malignant Hyperthermia: No Meds Allergies/Adverse Reactions: Allergies Allergy/AdvReac Type Severity Reaction Status Date / Time No Known Allergies Allergy Verified 09/15/17 13:26 Physical Exam - Constitutional Appears: Non-toxic, No Acute Distress - Head Exam Head Exam: ATRAUMATIC, NORMOCEPHALIC - Eye Exam Eye Exam: Normal appearance - ENT Exam ENT Exam: Mucous Membranes Moist - Respiratory Exam Respiratory Exam: Decreased Breath Sounds. absent: Rales, Rhonchi, Wheezes - Cardiovascular Exam Cardiovascular Exam: REGULAR RHYTHM, +S1, +S2 - GI/Abdominal Exam GI & Abdominal Exam: Normal Bowel Sounds, Soft. absent: Guarding, Rebound, Tenderness - Extremities Exam Extremities exam: Positive for: normal inspection, pedal edema (b/l pedal edema 1+) - Neurological Exam Neurological exam: Alert, Oriented x3 - Psychiatric Exam Psychiatric exam: Normal Affect, Normal Mood - Skin Skin Exam: Intact Results - Vital Signs Recent Vital Signs: Last Vital Signs Temp 97.3 F L 09/16/17 08:03 Pulse 60 09/16/17 08:03 Resp 18 09/16/17 08:03 BP 160/82 H 09/16/17 08:03 Pulse Ox 99 09/16/17 08:03 - Labs Result Diagrams: 09/15/17 14:30 09/15/17 14:30 Labs: Laboratory Results - last 24 hr 09/15/17 09/15/17 09/15/17 14:30 14:30 21:00 WBC 13.3 H D RBC 4.21 L Hgb 11.7 L Hct 36.2 MCV 85.9 D MCH 27.7 MCHC 32.3 L RDW 17.9 H Plt Count 368 D MPV 7.9 Neut % (Auto) 88.9 H Lymph % (Auto) 2.9 L [place] % (Auto) 7.8 Eos % (Auto) 0.1 Baso % (Auto) 0.3 Neut # (Auto) 11.8 H Lymph # (Auto) 0.4 L [place] # (Auto) 1.0 H Eos # (Auto) 0.0 Baso # (Auto) 0.0 Neutrophils % (Manual) 82 H Band Neutrophils % 1 Lymphocytes % (Manual) 7 L Monocytes % (Manual) 10 Platelet Estimate Normal Hypochromasia (manual) Slight Anisocytosis (manual) Slight Tear Drop Cells Slight Ovalocytes Slight Schistocytes Slight Sodium 141 Potassium 4.0 Chloride 103 Carbon Dioxide 27 Anion Gap 15 BUN 23 H Creatinine 0.4 L Est GFR ( Amer) > 60 Est GFR (Non-Af Amer) > 60 Random Glucose 89 Calcium 8.7 Total Bilirubin 0.9 AST 255 H ALT 266 H Alkaline Phosphatase 53 Troponin I 0.1500 H* 0.1250 H* NT-Pro-B Natriuret Pep 526 Total Protein 6.5 Albumin 3.5 Globulin 3.0 Albumin/Globulin Ratio 1.1 09/16/17 04:45 WBC RBC Hgb Hct MCV MCH MCHC RDW Plt Count MPV Neut % (Auto) Lymph % (Auto) [place] % (Auto) Eos % (Auto) Baso % (Auto) Neut # (Auto) Lymph # (Auto) [place] # (Auto) Eos # (Auto) Baso # (Auto) Neutrophils % (Manual) Band Neutrophils % Lymphocytes % (Manual) Monocytes % (Manual) Platelet Estimate Hypochromasia (manual) Anisocytosis (manual) Tear Drop Cells Ovalocytes Schistocytes Sodium Potassium Chloride Carbon Dioxide Anion Gap BUN Creatinine Est GFR ( Amer) Est GFR (Non-Af Amer) Random Glucose Calcium Total Bilirubin AST ALT Alkaline Phosphatase Troponin I 0.1310 H* NT-Pro-B Natriuret Pep Total Protein Albumin Globulin Albumin/Globulin Ratio Assessment & Plan - Assessment and Plan (Free Text) Plan: Assessment/Plan 1) Chest pain -to r/o ACS -EKG NSR. No acute ischemic changes - telemetry -CXR: no active pulmnary disease -Troponin x 3 positive but EKG no ischemic changes -hx/o +troponin in the past -Family Services Coordinator consult suggested Dr Godwin 2) Elevated troponin Hx/o elevation of troponin on prior admissions even after NSTEMI -may be secondary to lupus nephritis or other causes 3) CAD s/p s/p CABG and 3 stent last one 06/2017 -c/w home medications -Family Services Coordinator consult suggested 4) SLE -continue home medications 5) DVT Prophylaxis -Lovenox 40 mg sc daily
[2017-09-16] MEDS: Metoprolol Succinate 50 mg XL Tab PO SCH (16:27)
--- NOTE | 2017-09-16 20:03 | CP.PCM.CON ---
History of Present Illness - History of Present Illness History of Present Illness: I was asked to see patient by Dr Hernandez. Patient is a 62 year old male with a history of newly diagnosed lupus, HTN, CAD s/p CABG, and stent RCA, chronica inflammatory liver process whoi presents with progressive dyspnea, lower extremity edema and chest pain. The patient states he was daignosed with lupus a few weeks ago, and started on steroid therapy. he has developed lower extremity swelling and wekness. He is dyspneic. He has had elevated LFTs of unclear etiology. He was admitted and found to have mildly elevated troponin. He currently denies chest pain. Review of Systems - Constitutional Constitutional: Weakness - EENT Eyes: absent: As Per HPI, Blind Spots, Blurred Vision, Change in Vision, Decreased Night Vision, Diplopia, Discharge, Dry Eye, Exophthalmos, Floaters, Irritation, Itchy Eyes, Loss of Peripheral Vision, Pain, Photophobia, Requires Corrective Lenses, Sees Flashes, Spots in Vision, Tunnel Vision, Other Visual Disturbances, Loss of Vision, Other Ears: absent: As Per HPI, Decreased Hearing, Ear Discharge, Ear Pain, Tinnitus, Abnormal Hearing, Disequilibrium, Dizziness, Other Nose/Mouth/Throat: absent: As Per HPI, Epistaxis, Nasal Congestion, Nasal Discharge, Nasal Obstruction, Nasal Trauma, Nose Pain, Post Nasal Drip, Sinus Pain, Sinus Pressure, Bleeding Gums, Change in Voice, Dental Pain, Dry Mouth, Dysphagia, Halitosis, Hoarsness, Lip Swelling, Mouth Lesions, Mouth Pain, Odynophagia, Sore Throat, Throat Swelling, Tongue Swelling, Facial Pain, Neck Pain, Neck Mass, Other - Cardiovascular Cardiovascular: Chest Pain, Dyspnea, Leg Edema, Pedal Edema - Respiratory Respiratory: Dyspnea, Dyspnea on Exertion - Gastrointestinal Gastrointestinal: absent: As Per HPI, Abdominal Pain, Belching, Bloating, Change in Bowel Habits, Change in Stool Character, Coffee Ground Emesis, Constipation, Cramping, Diarrhea, Dyspepsia, Dysphagia, Early Satiety, Excessive Flatus, Fecal Incontinence, Heartburn, Hematemesis, Hematochezia, Loose Stools, Melena, Nausea, Odynophagia, Temesmus, Vomiting, Other - Genitourinary Genitourinary: absent: As Per HPI, Change in Urinary Stream, Difficulty Urinating, Dysuria, Flank Pain, Hematuria, Pyuria, Nocturia, Urinary Incontinence, Urinary Frequency, Urinary Hesitance, Urinary Urgency, Voiding Freq/Small Amts, Freq UTI, Hx Renal/Bladder Calculi, Hx /Renal Surgery, Bladder Distension, Other - Musculoskeletal Musculoskeletal: Muscle Weakness - Integumentary Integumentary: absent: As Per HPI, Acne, Alopecia, Bleeding Lesions, Change in Hair, Change in Nails, Change in Pigmentation, Changing Lesions, Dry Skin, Erythema, Furuncle, Hirsutism, Lesions, New Lesions, Non-Healing Lesions, Photosensitivity, Pruritus, Rash, Skin Pain, Skin Ulcer, Sores, Striae, Swelling , Unusual Bruising, Wounds, Jaundice, Other - Neurological Neurological: absent: As Per HPI, Abnormal Gait, Abnormal Hearing, Abnormal Movements, Abnormal Speech, Behavioral Changes, Burning Sensations, Confusion, Convulsions, Disequilibrium, Dizziness, Numbness, Focal Weakness, Frequent Falls , Headaches, Lack of Coordination, Loss of Vision, Memory Loss, Paresthesias, Radicular Pain, Restless Legs, Sensory Deficit, Syncope, Tingling, Tremor, Vertigo, Weakness, Other Visual Disturbances, Other - Psychiatric Psychiatric: absent: As Per HPI, Abnormal Sleep Pattern, Anhedonia, Anxiety, Auditory Hallucinations, Behavioral Changes, Change in Appetite, Change in Libido, Confusion, Depression, Difficulty Concentrating, Hallucinations, Homicidal Ideation, Hopelessness, Irritability, Memory Loss, Mood Swings, Panic Attacks, Paranoia, Suicidal Ideation, Visual Hallucinations, Tactile Hallucinations, Other - Endocrine Endocrine: absent: As Per HPI, Change in Body Appearance, Change in Libido, Cold Intolorance, Deepening of Voice, Excessive Sweating, Fatigue, Flushing, Heat Intolorance, Increase in Ring/Shoe/Hat Size, Palpitations, Polydipsia, Polyphagia, Polyuria, Other - Hematologic/Lymphatic Hematologic: absent: As Per HPI, Easy Bleeding, Easy Bruising, Lymphadenopathy, Other Past Patient History - Past Medical History & Family History Past Medical History?: Yes - Past Social History Smoking Status: Former Smoker - CARDIAC Hx Cardiac Disorders: Yes Hx Congestive Heart Failure: Yes Hx Hypercholesterolemia: Yes Hx Hypertension: Yes - PULMONARY Hx Respiratory Disorders: Yes Hx Chronic Obstructive Pulmonary Disease (COPD): Yes - NEUROLOGICAL Hx Neurological Disorder: No Other/Comment: Patient being worked up for possible MS/PD - HEENT Hx HEENT Problems: No - RENAL Hx Chronic Kidney Disease: No - ENDOCRINE/METABOLIC Hx Endocrine Disorders: Yes Hx Hypothyroidism: Yes - HEMATOLOGICAL/ONCOLOGICAL Hx Blood Disorders: No Hx AIDS: No Hx Human Immunodeficiency Virus (HIV): No - INTEGUMENTARY Hx Dermatological Problems: No - MUSCULOSKELETAL/RHEUMATOLOGICAL Hx Musculoskeletal Disorders: Yes Hx Falls: Yes Hx Rheumatoid Arthritis: Yes Hx Unsteady Gait: Yes - GASTROINTESTINAL Hx Gastrointestinal Disorders: Yes Hx Diverticulitis: Yes - GENITOURINARY/GYNECOLOGICAL Hx Genitourinary Disorders: No - PSYCHIATRIC Hx Psychophysiologic Disorder: No Hx Substance Use: No - SURGICAL HISTORY Hx Surgeries: Yes Hx Coronary Artery Bypass Graft: Yes (triple 06/07/2013) Hx Coronary Stent: Yes (06/2017) Hx Joint Replacement: Yes (Right total knee) - ANESTHESIA Hx Anesthesia: Yes Hx Anesthesia Reactions: No Hx Malignant Hyperthermia: No Meds Allergies/Adverse Reactions: Allergies Allergy/AdvReac Type Severity Reaction Status Date / Time No Known Allergies Allergy Verified 09/15/17 13:26 - Medications Medications: Current Medications Alprazolam (Xanax) 0.5 mg PO TID [facility] Last Admin: 09/16/17 16:29 Dose: 0.5 mg Aspirin (Aspirin Chewable) 81 mg PO DAILY [facility] Last Admin: 09/16/17 09:42 Dose: 81 mg Azathioprine (Imuran) 50 mg PO BID [facility] Last Admin: 09/16/17 16:29 Dose: 50 mg Enoxaparin Sodium (Lovenox) 40 mg SC DAILY [facility] PRN Reason: Protocol Levothyroxine Sodium (Synthroid) 25 mcg PO DAILY@0630 [facility] Last Admin: 09/16/17 05:30 Dose: 25 mcg Metoprolol Succinate (Toprol Xl) 50 mg PO QD5 [facility] Last Admin: 09/16/17 16:27 Dose: 50 mg Oxycodone/Acetaminophen (Percocet 5/325 Mg Tab) 2 tab PO Q4 [facility] Stop: 09/18/17 21:01 Last Admin: 09/16/17 16:27 Dose: 2 tab Pantoprazole Sodium (Protonix Ec Tab) 40 mg PO DAILY [facility] Last Admin: 09/16/17 09:42 Dose: 40 mg Prednisone (Prednisone Tab) 20 mg PO TID [facility] Last Admin: 09/16/17 16:30 Dose: 20 mg Ticagrelor (Brilinta) 90 mg PO BID [facility] Last Admin: 09/16/17 16:29 Dose: 90 mg Valsartan (Diovan) 160 mg PO DAILY [facility] Last Admin: 09/16/17 09:41 Dose: 160 mg Zolpidem Tartrate (Ambien) 10 mg PO [facility] Last Admin: 09/15/17 23:29 Dose: 10 mg Physical Exam - Constitutional Appears: Non-toxic - Head Exam Head Exam: NORMAL INSPECTION - Eye Exam Eye Exam: Normal appearance - ENT Exam ENT Exam: Mucous Membranes Moist - Neck Exam Neck exam: Positive for: Full Rom - Respiratory Exam Respiratory Exam: Decreased Breath Sounds - Cardiovascular Exam Cardiovascular Exam: REGULAR RHYTHM - GI/Abdominal Exam GI & Abdominal Exam: Normal Bowel Sounds - Rectal Exam Rectal Exam: Deferred - Extremities Exam Extremities exam: Positive for: pedal edema - Back Exam Back exam: NORMAL INSPECTION - Neurological Exam Neurological exam: Alert, Oriented x3 - Psychiatric Exam Psychiatric exam: Normal Affect - Skin Skin Exam: Normal Color Results - Vital Signs Recent Vital Signs: Last Vital Signs Temp 98.2 F 09/16/17 16:27 Pulse 70 09/16/17 16:27 Resp 18 09/16/17 16:27 BP 157/85 H 09/16/17 16:27 Pulse Ox 97 09/16/17 16:27 - Labs Result Diagrams: 09/17/17 04:35 09/17/17 04:35 Labs: Laboratory Results - last 24 hr 09/15/17 09/16/17 21:00 04:45 Troponin I 0.1250 H* 0.1310 H* - EKG Data EKG Interpreted by: Myself EKG shows normal: Sinus rhythm Assessment & Plan (1) CHF (congestive heart failure) Assessment and Plan: will need evaluation of ventricular function to assess LV function. recommend echo Status: Acute (2) CAD (coronary artery disease) Assessment and Plan: elevated troponin unclear etiology. will assess LV function. continue ASA/ Brilinta. Status: Chronic
[2017-09-17] MEDS: Oxycodone/Acetaminophen 5/325 mg Tab PO SCH ×6 (01:59→21:50)
[2017-09-17] MEDS: Levothyroxine 25 MCG TAB PO SCH (05:43)
[2017-09-17 05:48] LABS: HEMOGLOBIN 11.6 g/dL (12.0-18.0); MEAN CELL VOLUME 85.7 fl (80.0-94.0); MEAN CORPUSCULAR HEMOGLOBIN 28.2 pg (27.0-31.0); MEAN CORPUSCULAR HGB CONC 32.9 g/dL (33.0-37.0); RBC 4.12 Mil/uL (4.40-5.90); RED CELL DISTRIBUTION WIDTH 17.4 % (11.5-14.5); WHITE BLOOD COUNT 9.8 K/uL (4.8-10.8)
[2017-09-17 06:29] LABS: ALB/GLOB RATIO 1.1 (1.0-2.1); ALBUMIN 3.3 g/dL (3.5-5.0); ALT/SGPT 258 U/L (21-72); AST/SGOT 211 U/L (17-59); BLOOD UREA NITROGEN 30 mg/dl (9-20); CALCIUM 8.3 mg/dL (8.4-10.2); GFR AFRICAN-AMERICAN > 60; GFR NON-AFRICAN AMERICAN > 60
[2017-09-17] MEDS: Enoxaparin 40 mg Syringe SC SCH (09:08)
[2017-09-17] MEDS: Pantoprazole 40 mg EC Tab PO SCH (09:09)
--- NOTE | 2017-09-17 09:46 | CP.PCM.PN ---
Subjective - Date & Time of Evaluation Date of Evaluation: 09/17/17 Time of Evaluation: 07:20 - Subjective Subjective: Patient seen and examined bedside with Dr Hernandez. Patient reports that chest pain subsided. denies fever, chest pain, SOB, n,v,d, abdd pain. no overnight events. patient seen by art conservator yesterday -will go for Echo and Us Abd Objective - Vital Signs/Intake and Output Vital Signs (last 24 hours): Temp Pulse Resp BP Pulse Ox 97.6 F 72 18 143/73 96 09/17/17 07:52 09/17/17 07:52 09/17/17 07:52 09/17/17 07:52 09/17/17 07:52 - Medications Medications: Current Medications Alprazolam (Xanax) 0.5 mg PO TID [facility] Last Admin: 09/17/17 09:09 Dose: 0.5 mg Aspirin (Aspirin Chewable) 81 mg PO DAILY [facility] Last Admin: 09/17/17 09:09 Dose: 81 mg Azathioprine (Imuran) 50 mg PO BID [facility] Last Admin: 09/17/17 09:09 Dose: 50 mg Enoxaparin Sodium (Lovenox) 40 mg SC DAILY [facility] PRN Reason: Protocol Last Admin: 09/17/17 09:08 Dose: 40 mg Levothyroxine Sodium (Synthroid) 25 mcg PO DAILY@0630 [facility] Last Admin: 09/17/17 05:43 Dose: 25 mcg Metoprolol Succinate (Toprol Xl) 50 mg PO QD5 [facility] Last Admin: 09/16/17 16:27 Dose: 50 mg Oxycodone/Acetaminophen (Percocet 5/325 Mg Tab) 2 tab PO Q4 [facility] Stop: 09/18/17 21:01 Last Admin: 09/17/17 09:08 Dose: 2 tab Pantoprazole Sodium (Protonix Ec Tab) 40 mg PO DAILY [facility] Last Admin: 09/17/17 09:09 Dose: 40 mg Prednisone (Prednisone Tab) 20 mg PO TID [facility] Last Admin: 09/17/17 09:09 Dose: 20 mg Ticagrelor (Brilinta) 90 mg PO BID [facility] Last Admin: 09/17/17 09:09 Dose: 90 mg Valsartan (Diovan) 160 mg PO DAILY [facility] Last Admin: 09/17/17 09:09 Dose: 160 mg Zolpidem Tartrate (Ambien) 10 mg PO HS [facility] Last Admin: 09/16/17 22:22 Dose: 10 mg - Labs Labs: 09/17/17 04:35 09/17/17 04:35 - Constitutional Appears: Well, Non-toxic, No Acute Distress - Head Exam Head Exam: ATRAUMATIC, NORMOCEPHALIC - Eye Exam Eye Exam: Normal appearance - ENT Exam ENT Exam: Mucous Membranes Moist - Respiratory Exam Respiratory Exam: Clear to Ausculation Bilateral. absent: Rales, Rhonchi, Wheezes - Cardiovascular Exam Cardiovascular Exam: REGULAR RHYTHM, +S1, +S2 - GI/Abdominal Exam GI & Abdominal Exam: Soft, Normal Bowel Sounds. absent: Tenderness - Extremities Exam Extremities Exam: Normal Inspection. absent: Pedal Edema - Back Exam Back Exam: NORMAL INSPECTION - Neurological Exam Neurological Exam: Alert, Awake, Oriented x3 - Psychiatric Exam Psychiatric exam: Normal Affect, Normal Mood - Skin Skin Exam: Intact Assessment and Plan - Assessment and Plan (Free Text) Plan: Assessment/Plan 1) Chest pain -resolved -to r/o ACS -EKG NSR. No acute ischemic changes - telemetry -CXR: no active pulmonary disease -Troponin x 3 positive elevation but EKG no ischemic changes -hx/o +troponin in the past -Wire Spinner consult Dr Godwin Appreciated: elevated troponin unclear etiology. Recommends Echo. c/w ASA/Brilinta. 2) Elevated troponin -Hx/o elevation of troponin on prior admissions even after NSTEMI -may be secondary to lupus nephritis or other causes 3) CAD s/p s/p CABG and 3 stent last one 06/2017 -c/w home medications -Wire Spinner consult suggested 4) SLE -continue home medications 5) Hypokalemia -K 3.0 -KCL IV 10 meq x 4 -f/u CMP tomorrow 6) Transaminitis -chronically elevated since 02/2017 -may be secondary to azathioprine( lupus medication) -AST/Alt 211/258 -Hep panel neg 05/2017 -CT abd: liver, pancreas, gallbladder normal 07/2017 -f/u Abd Us 7) DVT Prophylaxis -Lovenox 40 mg sc daily
[2017-09-17] MEDS: Potassium Chloride 20 mEq 100 ML IVPB SCH ×2 (12:35→16:53)
[2017-09-17] MEDS ORDERED: Potassium Chloride 20 mEq ER Tab PO ONE (16:54)
[2017-09-17] MEDS: Metoprolol Succinate 50 mg XL Tab PO SCH (17:48)
--- NOTE | 2017-09-17 18:16 | CP.PCM.PN ---
Subjective - Date & Time of Evaluation Date of Evaluation: 09/17/17 Time of Evaluation: 17:30 - Subjective Subjective: patient has no chest pain. Objective - Vital Signs/Intake and Output Vital Signs (last 24 hours): Temp Pulse Resp BP Pulse Ox 98.2 F 75 20 156/78 H 99 09/17/17 16:25 09/17/17 17:48 09/17/17 16:25 09/17/17 17:48 09/17/17 16:25 - Medications Medications: Current Medications Alprazolam (Xanax) 0.5 mg PO TID [facility] Last Admin: 09/17/17 17:48 Dose: 0.5 mg Aspirin (Aspirin Chewable) 81 mg PO DAILY [facility] Last Admin: 09/17/17 09:09 Dose: 81 mg Azathioprine (Imuran) 50 mg PO BID [facility] Last Admin: 09/17/17 17:47 Dose: 50 mg Enoxaparin Sodium (Lovenox) 40 mg SC DAILY [facility] PRN Reason: Protocol Last Admin: 09/17/17 09:08 Dose: 40 mg Levothyroxine Sodium (Synthroid) 25 mcg PO DAILY@0630 [facility] Last Admin: 09/17/17 05:43 Dose: 25 mcg Metoprolol Succinate (Toprol Xl) 50 mg PO QD5 [facility] Last Admin: 09/17/17 17:48 Dose: 50 mg Oxycodone/Acetaminophen (Percocet 5/325 Mg Tab) 2 tab PO Q4 [facility] Stop: 09/18/17 21:01 Last Admin: 09/17/17 17:46 Dose: 2 tab Pantoprazole Sodium (Protonix Ec Tab) 40 mg PO DAILY [facility] Last Admin: 09/17/17 09:09 Dose: 40 mg Prednisone (Prednisone Tab) 20 mg PO TID [facility] Last Admin: 09/17/17 17:47 Dose: 20 mg Ticagrelor (Brilinta) 90 mg PO BID [facility] Last Admin: 09/17/17 17:47 Dose: 90 mg Valsartan (Diovan) 160 mg PO DAILY [facility] Last Admin: 09/17/17 09:09 Dose: 160 mg Zolpidem Tartrate (Ambien) 10 mg PO HS [facility] Last Admin: 09/16/17 22:22 Dose: 10 mg - Labs Labs: 09/17/17 04:35 09/17/17 04:35 - Constitutional Appears: Non-toxic - Head Exam Head Exam: NORMAL INSPECTION - Eye Exam Eye Exam: Normal appearance - ENT Exam ENT Exam: Mucous Membranes Moist - Neck Exam Neck Exam: Normal Inspection - Respiratory Exam Respiratory Exam: NORMAL BREATHING PATTERN - Cardiovascular Exam Cardiovascular Exam: REGULAR RHYTHM - GI/Abdominal Exam GI & Abdominal Exam: Normal Bowel Sounds - Rectal Exam Rectal Exam: Deferred - Extremities Exam Extremities Exam: absent: Pedal Edema - Back Exam Back Exam: NORMAL INSPECTION - Neurological Exam Neurological Exam: Alert - Psychiatric Exam Psychiatric exam: Normal Affect - Skin Skin Exam: Normal Color Assessment and Plan (1) CHF (congestive heart failure) Assessment & Plan: reviewed echo. LV function appears preserved. midl troponin elevation but no EKG changes. Sxs may be due to lupus. Status: Acute (2) CAD (coronary artery disease) Assessment & Plan: ASA/Brilinta Status: Chronic
[2017-09-18] MEDS: Oxycodone/Acetaminophen 5/325 mg Tab PO SCH ×4 (01:23→12:23)
[2017-09-18] MEDS: Levothyroxine 25 MCG TAB PO SCH (05:42)
[2017-09-18 06:11] LABS: BASO # 0.1 K/uL (0.0-0.2); BASO % 0.6 % (0.0-2.0); EOS % 0.5 % (0.0-4.0); HEMOGLOBIN 11.8 g/dL (12.0-18.0); LYMPH # 0.5 K/uL (1.0-4.3); LYMPH % 5.7 % (20.0-40.0); MEAN CORPUSCULAR HEMOGLOBIN 28.5 pg (27.0-31.0); MEAN CORPUSCULAR HGB CONC 33.1 g/dL (33.0-37.0); MEAN PLATELET VOLUME 7.8 fl (7.2-11.7); MONO # 0.6 K/uL (0.0-0.8); MONO % 6.7 % (0.0-10.0); NEUT # 8.1 K/uL (1.8-7.0); NEUT % 86.5 % (50.0-75.0); NRBC % 0.1 % (0.0-0.0); RBC 4.13 Mil/uL (4.40-5.90); RED CELL DISTRIBUTION WIDTH 16.9 % (11.5-14.5); WHITE BLOOD COUNT 9.4 K/uL (4.8-10.8)
[2017-09-18 06:17] LABS: ALBUMIN 3.1 g/dL (3.5-5.0); ALT/SGPT 222 U/L (21-72); AST/SGOT 172 U/L (17-59); BLOOD UREA NITROGEN 26 mg/dl (9-20); CALCIUM 8.5 mg/dL (8.4-10.2); GFR AFRICAN-AMERICAN > 60; GFR NON-AFRICAN AMERICAN > 60
[2017-09-18 08:16] VITALS: RESP 20; O2SAT 99
--- NOTE | 2017-09-18 08:17 | CP.PCM.PN ---
Subjective - Date & Time of Evaluation Date of Evaluation: 09/18/17 Time of Evaluation: 07:10 - Subjective Subjective: Patient seen and examined bedside with Dr Hernandez. Patient denies chest pain, but reports b/l muscle weakness for several days prior the admission is afraid to fall at home. he denies fever, sob, n,b,d abd pain. Pending PT evaluation Abs us: liver steatosis. Objective - Vital Signs/Intake and Output Vital Signs (last 24 hours): Temp Pulse Resp BP Pulse Ox 97.7 F 67 20 129/68 99 09/18/17 08:16 09/18/17 08:16 09/18/17 08:16 09/18/17 08:16 09/18/17 08:16 - Medications Medications: Current Medications Alprazolam (Xanax) 0.5 mg PO TID [facility] Last Admin: 09/17/17 17:48 Dose: 0.5 mg Aspirin (Aspirin Chewable) 81 mg PO DAILY [facility] Last Admin: 09/17/17 09:09 Dose: 81 mg Azathioprine (Imuran) 50 mg PO BID [facility] Last Admin: 09/17/17 17:47 Dose: 50 mg Enoxaparin Sodium (Lovenox) 40 mg SC DAILY [facility] PRN Reason: Protocol Last Admin: 09/17/17 09:08 Dose: 40 mg Levothyroxine Sodium (Synthroid) 25 mcg PO DAILY@0630 [facility] Last Admin: 09/18/17 05:42 Dose: 25 mcg Metoprolol Succinate (Toprol Xl) 50 mg PO QD5 [facility] Last Admin: 09/17/17 17:48 Dose: 50 mg Oxycodone/Acetaminophen (Percocet 5/325 Mg Tab) 2 tab PO Q4 [facility] Stop: 09/18/17 21:01 Last Admin: 09/18/17 05:02 Dose: 2 tab Pantoprazole Sodium (Protonix Ec Tab) 40 mg PO DAILY [facility] Last Admin: 09/17/17 09:09 Dose: 40 mg Prednisone (Prednisone Tab) 20 mg PO TID [facility] Last Admin: 09/17/17 17:47 Dose: 20 mg Ticagrelor (Brilinta) 90 mg PO BID [facility] Last Admin: 09/17/17 17:47 Dose: 90 mg Valsartan (Diovan) 160 mg PO DAILY [facility] Last Admin: 09/17/17 09:09 Dose: 160 mg Zolpidem Tartrate (Ambien) 10 mg PO HS [facility] Last Admin: 09/17/17 21:51 Dose: 10 mg - Labs Labs: 09/18/17 04:30 09/18/17 04:30 - Constitutional Appears: Non-toxic, No Acute Distress - Head Exam Head Exam: ATRAUMATIC, NORMOCEPHALIC - Eye Exam Eye Exam: Normal appearance - ENT Exam ENT Exam: Mucous Membranes Moist - Neck Exam Neck Exam: Normal Inspection - Respiratory Exam Respiratory Exam: Clear to Ausculation Bilateral. absent: Rales, Rhonchi, Stridor - Cardiovascular Exam Cardiovascular Exam: REGULAR RHYTHM, +S1, +S2 - GI/Abdominal Exam GI & Abdominal Exam: Soft, Normal Bowel Sounds. absent: Guarding - Extremities Exam Extremities Exam: absent: Calf Tenderness - Neurological Exam Neurological Exam: Alert, Awake, Oriented x3 - Psychiatric Exam Psychiatric exam: Normal Affect, Normal Mood - Skin Skin Exam: Intact Assessment and Plan - Assessment and Plan (Free Text) Plan: Assessment/Plan 1) Chest pain -resolved -to r/o ACS -EKG NSR. No acute ischemic changes - telemetry -CXR: no active pulmonary disease -Troponin x 3 positive elevation but EKG no ischemic changes -hx/o +troponin in the past -Outpatient Interviewing Clerk consult Dr Godwin Appreciated: elevated troponin unclear etiology. Recommends Echo. c/w ASA/Brilinta. Echo reviewed by steam shovel engineer. 2) Elevated troponin -Hx/o elevation of troponin on prior admissions even after NSTEMI -may be secondary to lupus nephritis or other causes -steam shovel engineer consult appreciated. 3) CAD s/p s/p CABG and 3 stent last one 06/2017 -c/w home medications -Outpatient Interviewing Clerk consult appreciated 4) SLE -continue home medications 5) Hypokalemia -resolved K:3.8 6) Transaminitis -chronically elevated since 02/2017 -may be secondary to azathioprine( lupus medication) -AST/Alt 211/258 -Hep panel neg 05/2017 -CT abd: liver, pancreas, gallbladder normal 07/2017 -Abd Us: hepatomegaly. Liver steatosis -f/u outpatient with rapid transit operator Dr Bansal for modification of medications 7) DVT Prophylaxis -Lovenox 40 mg sc daily
--- NOTE | 2017-09-18 08:40 | US ---
HISTORY: elevated lft COMPARISON: Abdominal ultrasound dated 06/10/2017. TECHNIQUE: Sonographic evaluation of the abdomen. FINDINGS: LIVER: Enlarged, measuring 17.8 cm. Increased echogenicity of the liver parenchyma. No mass. No intrahepatic bile duct dilatation. GALLBLADDER: Unremarkable. No gallstones. COMMON BILE DUCT: Measures 5 mm. No stones. No dilatation. PANCREAS: Unremarkable as visualized. No mass. No ductal dilatation. RIGHT KIDNEY: Measures 11.3 x 5.0 x 4.6cm. Normal echogenicity. No calculus, mass, or hydronephrosis. LEFT KIDNEY: Measures 12.5 x 6.4 x 6.0cm. Normal echogenicity. No calculus, mass, or hydronephrosis. SPLEEN: Normal in size and contour. No mass. AORTA: No aneurysmal dilatation. IVC: Unremarkable. OTHER FINDINGS: None. IMPRESSION: Hepatomegaly with steatosis.
[2017-09-18] MEDS: Enoxaparin 40 mg Syringe SC SCH (09:32)
[2017-09-18] MEDS: Pantoprazole 40 mg EC Tab PO SCH (09:32)
--- NOTE | 2017-09-18 12:03 | CARD ---
APPROVED REPORT EXAM: Two-dimensional and M-mode echocardiogram with Doppler and color Doppler. Other Information Quality : GoodRhythm : NSR INDICATION Chest Pain 2D DIMENSIONS IVSd1.09 (0.7-1.1cm)LVDd4.79 (3.9-5.9cm) LVOT Diameter2.24 (1.8-2.4cm)PWd1.14 (0.7-1.1cm) IVSs1.61 (0.8-1.2cm)LVDs2.74 (2.5-4.0cm) FS (%) 42.8 %PWs1.47 (0.8-1.2cm) M-Mode DIMENSIONS Left Atrium (MM)4.11 (2.5-4.0cm)IVSd1.10 (0.7-1.1cm) Aortic Root3.28 (2.2-3.7cm)LVDd5.35 (4.0-5.6cm) Aortic Cusp Exc.2.26 (1.5-2.0cm)PWd1.05 (0.7-1.1cm) IVSs1.38 cmFS (%) 46 % LVDs2.90 (2.0-3.8cm)PWs2.23 cm Mitral Valve MV E Tyjnenkp38.2cm/sMV DECEL [id number] A Tzemrkzn70.0cm/s MV GXH29wbD/A ratio1.6MVA (PHT)3.77cm2 TDI Lateral E' Peak V11.29cm/sMedial E' Peak V9.21cm/sE/Lateral E'6.7 E/Medial E'8.3 Pulmonary Valve PV Peak Aibfxvig899.8cm/s Tricuspid Valve TR Peak Zdtsntjo544sy/sRAP QMNMBXNB44fhCbQL Peak Gr.21mmHg [id number] LEFT VENTRICLE The left ventricle is normal size. There is normal left ventricular wall thickness. The left ventricular function is normal. The left ventricular ejection fraction is 60% There is normal LV segmental wall motion. The left ventricular diastolic function is normal. No left ventricle thrombus noted on this study. There is no ventricular septal defect visualized. There is no left ventricular aneurysm. There is no mass noted in the left ventricle. RIGHT VENTRICLE The right ventricle is normal size. There is normal right ventricular wall thickness. The right ventricular systolic function is normal. ATRIA The left atrium size is normal. The right atrium size is normal. The interatrial septum is intact with no evidence for an atrial septal defect. AORTIC VALVE The aortic valve is normal in structure. No aortic regurgitation is present. There is no aortic valvular stenosis. There is no aortic valvular vegetation. MITRAL VALVE The mitral valve is normal in structure. There is no evidence of mitral valve prolapse. There is no mitral valve stenosis. There is no mitral valve regurgitation noted. TRICUSPID VALVE The tricuspid valve is normal in structure. There is no tricuspid valve regurgitation noted. There is no tricuspid valve prolapse or vegetation. There is no tricuspid valve stenosis. PULMONIC VALVE The pulmonary valve is normal in structure. There is no pulmonic valvular regurgitation. There is no pulmonic valvular stenosis. GREAT VESSELS The aortic root is normal in size. The ascending aorta is normal in size. The IVC is normal in size and collapses >50% with inspiration. PERICARDIAL EFFUSION The pericardium appears normal. There is no pleural effusion. <Conclusion> Normal Echocardiogram
[2017-09-18 12:22] VITALS: BP 161/78; PULSE 76; TEMP 98.2
--- NOTE | 2017-09-19 12:26 | CARD ---
APPROVED REPORT EKG Measurement Heart [id number] <Conclusion> Normal sinus rhythm Normal ECG
== END 2017-09-18 15:15 | DRG 313 ==
LOC: H.ER 13:16 → H.ERHOLD 15:42 → H.TEL 18:07
PROVIDERS: ADMIT Family Medicine; ATTEND Family Medicine
DX: R07.9 Chest pain, unspecified (principal); I25.10 Atherosclerotic heart disease of native coronary artery without angina pectoris; Z95.1 Presence of aortocoronary bypass graft; Z95.5 Presence of coronary angioplasty implant and graft; M06.9 Rheumatoid arthritis, unspecified; Z87.891 Personal history of nicotine dependence; Z96.651 Presence of right artificial knee joint; E87.6 Hypokalemia; I11.0 Hypertensive heart disease with heart failure; I50.9 Heart failure, unspecified; E78.00 Pure hypercholesterolemia, unspecified; E03.9 Hypothyroidism, unspecified; J44.9 Chronic obstructive pulmonary disease, unspecified; M32.9 Systemic lupus erythematosus, unspecified; R74.0 Nonspecific elevation of levels of transaminase and lactic acid dehydrogenase [LDH]

== ENCOUNTER 2017-09-18 14:57 | Inpatient (IN) | payer OTHER ==
[2017-09-18] MEDS ORDERED: Patient's Own Med (Acetaminophen/Oxycodone Hydr [Percocet 10/325 Mg Tab] 1 TAB) PO SCH (16:00)
[2017-09-18] MEDS: Metoprolol Succinate 50 mg XL Tab PO SCH (16:52)
[2017-09-18] MEDS: Oxycodone/Acetaminophen 5/325 mg Tab PO SCH ×2 (17:10→21:18)
[2017-09-19] MEDS: Oxycodone/Acetaminophen 5/325 mg Tab PO SCH ×6 (00:10→21:00)
[2017-09-19] MEDS: Levothyroxine 25 MCG TAB PO SCH (05:49)
--- NOTE | 2017-09-19 08:07 | CP.PCM.HP ---
History of Present Illness - History of Present Illness History of Present Illness: 62 yo ,m, PMHx/o SLE on steroids, COPD, CHF, CAD s/p CABG (triple 06/07/2013), 3 stent last one 06/2017 recently discharged from telemetry after been cleared by brine plant operator for chest pain and elevation of troponin related to SLE. Patient sent to Acute rehab for PT due to patient reports has b/l muscle leg weakness and he does not feel safe at home and may fall. Patient denies headache , focal arm weakness, numbness, cough, SOB, n,v,d, abd pain. PMD: Seth Jenkins Provider Relations Consultant: Dr Godwin Allergies: NKDA Psurghx: CABG, Right knee replacement. PShx: ETOH quit 6 years ago, former smoker, 1 PPD x 20 years. Quit 5 years ago, denies rect drugs. Present on Admission - Present on Admission Any Indicators Present on Admission: No History of DVT/PE: No History of Uncontrolled Diabetes: No Urinary Catheter: No Decubitus Ulcer Present: No Review of Systems - Review of Systems All systems: reviewed and no additional remarkable complaints except - Cardiovascular Cardiovascular: As Per HPI - Respiratory Respiratory: As Per HPI - Gastrointestinal Gastrointestinal: As Per HPI - Musculoskeletal Musculoskeletal: Muscle Weakness (b/l leg muscle weakness) - Neurological Neurological: Weakness Additional comments: b/l leg muscle weakness Past Patient History - Past Medical History & Family History Past Medical History?: Yes - Past Social History Smoking Status: Former Smoker - CARDIAC Hx Cardiac Disorders: Yes Hx Congestive Heart Failure: Yes Hx Hypercholesterolemia: Yes Hx Hypertension: Yes - PULMONARY Hx Respiratory Disorders: Yes Hx Chronic Obstructive Pulmonary Disease (COPD): Yes - NEUROLOGICAL Hx Neurological Disorder: No Other/Comment: Patient being worked up for possible MS/PD,. lupus. - HEENT Hx HEENT Problems: No - RENAL Hx Chronic Kidney Disease: No - ENDOCRINE/METABOLIC Hx Endocrine Disorders: Yes Hx Hypothyroidism: Yes - HEMATOLOGICAL/ONCOLOGICAL Hx Blood Disorders: No Hx AIDS: No Hx Human Immunodeficiency Virus (HIV): No - INTEGUMENTARY Hx Dermatological Problems: No - MUSCULOSKELETAL/RHEUMATOLOGICAL Hx Musculoskeletal Disorders: Yes Hx Falls: Yes (x2 in 6 weeks) Hx Rheumatoid Arthritis: Yes Hx Unsteady Gait: Yes - GASTROINTESTINAL Hx Gastrointestinal Disorders: Yes Hx Diverticulitis: Yes - GENITOURINARY/GYNECOLOGICAL Hx Genitourinary Disorders: No - PSYCHIATRIC Hx Psychophysiologic Disorder: No Hx Substance Use: No - SURGICAL HISTORY Hx Surgeries: Yes Hx Coronary Artery Bypass Graft: Yes (triple 06/07/2013) Hx Coronary Stent: Yes (06/2017) Hx Joint Replacement: Yes (Right total knee) - ANESTHESIA Hx Anesthesia: Yes Hx Anesthesia Reactions: No Hx Malignant Hyperthermia: No Meds Allergies/Adverse Reactions: Allergies Allergy/AdvReac Type Severity Reaction Status Date / Time No Known Allergies Allergy Verified 09/18/17 15:10 Physical Exam - Constitutional Appears: Non-toxic, No Acute Distress - Head Exam Head Exam: ATRAUMATIC, NORMOCEPHALIC - Eye Exam Eye Exam: Normal appearance - ENT Exam ENT Exam: Mucous Membranes Moist - Neck Exam Neck exam: Positive for: Normal Inspection - Respiratory Exam Respiratory Exam: Clear to Auscultation Bilateral. absent: Rhonchi, Wheezes - Cardiovascular Exam Cardiovascular Exam: REGULAR RHYTHM, +S1, +S2 - GI/Abdominal Exam GI & Abdominal Exam: Normal Bowel Sounds, Soft. absent: Tenderness - Extremities Exam Extremities exam: Positive for: normal inspection. 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 Liver steatosis -f/u outpatient with pipe covering molder Dr Bansal for modification of medications -f/u CBC, CMP 5) DVT Prophylaxis -Lovenox 40 mg sc daily
[2017-09-19] MEDS: Enoxaparin 40 mg Syringe SC SCH (09:12)
[2017-09-19] MEDS: Pantoprazole 40 mg EC Tab PO SCH (09:12)
[2017-09-19] MEDS ORDERED: Triamcinolone Acetonide 40 mg/mL Inj IAA ONE (13:15)
[2017-09-19] MEDS ORDERED: Lidocaine 1% (10 ml) Inj IAA ONE (13:15)
[2017-09-19] MEDS ORDERED: Dexamethasone 4 mg/1 ml IAA ONE (13:15)
--- NOTE | 2017-09-19 13:15 | CP.PCM.CON ---
History of Present Illness - History of Present Illness History of Present Illness: Dr Miranda PMR consultation on William Morris, born 1955 who has been admitted to [facility] for HA. History of SLE, chronic pain. He has had a right TKR but with left knee pain. 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 I will inject the left knee. I do not feel the shoulders will respond to an injection but will consider this in the future. I will address his pain medications as well Past Patient History - Past Medical History & Family History Past Medical History?: Yes - Past Social History Smoking Status: Former Smoker - CARDIAC Hx Cardiac Disorders: Yes Hx Congestive Heart Failure: Yes Hx Hypercholesterolemia: Yes Hx Hypertension: Yes - PULMONARY Hx Respiratory Disorders: Yes Hx Chronic Obstructive Pulmonary Disease (COPD): Yes - NEUROLOGICAL Hx Neurological Disorder: No Other/Comment: Patient being worked up for possible MS/PD,. lupus. - HEENT Hx HEENT Problems: No - RENAL Hx Chronic Kidney Disease: No - ENDOCRINE/METABOLIC Hx Endocrine Disorders: Yes Hx Hypothyroidism: Yes - HEMATOLOGICAL/ONCOLOGICAL Hx Blood Disorders: No Hx AIDS: No Hx Human Immunodeficiency Virus (HIV): No - INTEGUMENTARY Hx Dermatological Problems: No - MUSCULOSKELETAL/RHEUMATOLOGICAL Hx Musculoskeletal Disorders: Yes Hx Falls: Yes (x2 in 6 weeks) Hx Rheumatoid Arthritis: Yes Hx Unsteady Gait: Yes - GASTROINTESTINAL Hx Gastrointestinal Disorders: Yes Hx Diverticulitis: Yes - GENITOURINARY/GYNECOLOGICAL Hx Genitourinary Disorders: No - PSYCHIATRIC Hx Psychophysiologic Disorder: No Hx Substance Use: No - SURGICAL HISTORY Hx Surgeries: Yes Hx Coronary Artery Bypass Graft: Yes (triple 06/07/2013) Hx Coronary Stent: Yes (06/2017) Hx Joint Replacement: Yes (Right total knee) - ANESTHESIA Hx Anesthesia: Yes Hx Anesthesia Reactions: No Hx Malignant Hyperthermia: No Meds Allergies/Adverse Reactions: Allergies Allergy/AdvReac Type Severity Reaction Status Date / Time No Known Allergies Allergy Verified 09/18/17 15:10 - Medications Medications: Current Medications Alprazolam (Xanax) 0.5 mg PO TID [facility] Last Admin: 09/19/17 12:37 Dose: 0.5 mg Aspirin (Aspirin Chewable) 81 mg PO DAILY [facility] Last Admin: 09/19/17 09:12 Dose: 81 mg Azathioprine (Imuran) 50 mg PO BID [facility] Last Admin: 09/19/17 09:12 Dose: 50 mg Enoxaparin Sodium (Lovenox) 40 mg SC DAILY [facility] PRN Reason: Protocol Last Admin: 09/19/17 09:12 Dose: 40 mg Levothyroxine Sodium (Synthroid) 25 mcg PO DAILY@0630 [facility] Last Admin: 09/19/17 05:49 Dose: 25 mcg Metoprolol Succinate (Toprol Xl) 50 mg PO QD5 [facility] Last Admin: 09/18/17 16:52 Dose: 50 mg Oxycodone/Acetaminophen (Percocet 5/325 Mg Tab) 2 tab PO Q4 [facility] Stop: 09/21/17 17:01 Last Admin: 09/19/17 12:38 Dose: 2 tab Pantoprazole Sodium (Protonix Ec Tab) 40 mg PO DAILY [facility] Last Admin: 09/19/17 09:12 Dose: 40 mg Prednisone (Prednisone Tab) 20 mg PO TID [facility] Last Admin: 09/19/17 12:37 Dose: 20 mg Ticagrelor (Brilinta) 90 mg PO BID [facility] Last Admin: 09/19/17 09:12 Dose: 90 mg Valsartan (Diovan) 160 mg PO DAILY [facility] Last Admin: 09/19/17 09:12 Dose: 160 mg Zolpidem Tartrate (Ambien) 10 mg PO HS PRN PRN Reason: Insomnia Last Admin: 09/18/17 23:05 Dose: 10 mg Results - Vital Signs Recent Vital Signs: Last Vital Signs Temp 97.3 F L 09/19/17 08:00 Pulse 65 09/19/17 08:00 Resp 18 09/19/17 08:00 BP 139/79 09/19/17 08:00 Pulse Ox 93 L 09/19/17 08:00
[2017-09-19] MEDS: Metoprolol Succinate 50 mg XL Tab PO SCH (17:36)
[2017-09-19] MEDS ORDERED: Lidocaine 1% Inj (20ml) INFIL ONE (18:00)
[2017-09-19] MEDS: oxyCODONE 10 mg ER Tab (oxyCONTIN) PO SCH (21:04)
[2017-09-20] MEDS: Oxycodone/Acetaminophen 5/325 mg Tab PO SCH ×3 (02:00→17:16)
[2017-09-20] MEDS: Levothyroxine 25 MCG TAB PO SCH (05:35)
[2017-09-20 08:05] VITALS: RESP 20
[2017-09-20] MEDS: oxyCODONE 10 mg ER Tab (oxyCONTIN) PO SCH ×2 (08:17→20:59)
[2017-09-20] MEDS: Pantoprazole 40 mg EC Tab PO SCH (08:18)
[2017-09-20 08:37] LABS: ALT/SGPT 199 U/L (21-72); AST/SGOT 181 U/L (17-59); BLOOD UREA NITROGEN 25 mg/dl (9-20); CALCIUM 8.7 mg/dL (8.4-10.2); GFR AFRICAN-AMERICAN > 60; GFR NON-AFRICAN AMERICAN > 60
[2017-09-20] MEDS: Enoxaparin 40 mg Syringe SC SCH (09:00)
[2017-09-20 09:11] LABS: BASO % 0.5 % (0.0-2.0); EOS # 0.1 K/uL (0.0-0.7); EOS % 0.8 % (0.0-4.0); HEMOGLOBIN 11.2 g/dL (12.0-18.0); LYMPH # 0.8 K/uL (1.0-4.3); LYMPH % 8.9 % (20.0-40.0); MEAN CELL VOLUME 85.7 fl (80.0-94.0); MEAN CORPUSCULAR HEMOGLOBIN 27.8 pg (27.0-31.0); MEAN CORPUSCULAR HGB CONC 32.5 g/dL (33.0-37.0); MEAN PLATELET VOLUME 7.8 fl (7.2-11.7); MONO # 0.6 K/uL (0.0-0.8); MONO % 7.5 % (0.0-10.0); NEUT # 7.1 K/uL (1.8-7.0); NEUT % 82.3 % (50.0-75.0); PLATELET COUNT 277 K/uL (130-400); RBC 4.02 Mil/uL (4.40-5.90); RED CELL DISTRIBUTION WIDTH 17.4 % (11.5-14.5); WHITE BLOOD COUNT 8.6 K/uL (4.8-10.8)
[2017-09-20] MEDS ORDERED: Oxycodone/Acetaminophen 5/325 mg Tab PO PRN (11:36)
[2017-09-20 13:26] LABS: LYMPHOCYTE 12 % (20-50); MONOCYTE 9 % (0-10); NEUTROPHIL 79 % (42-75); PLATELET ESTIMATE NORMAL (NORMAL); TOTAL CELLS COUNTED 100
[2017-09-20 13:30] LABS: ANISOCYTOSIS SLIGHT; HYPOCHROMIC SLIGHT
[2017-09-20] MEDS ORDERED: Povidone Iodine Topical 10% Sol ONE (14:38)
--- NOTE | 2017-09-20 15:00 | PCM.PROC ---
Procedures Attestation:: I certify that I have explained the specified Operation(s) or Procedure(s), risks, benefits and reasonable alternatives to the Patient and/or other person responsible. The opportunity was given to ask questions and all questions answered - Joint Aspiration/Injection Joint #1 Consent Obtained: Verbal Consent Time Out Performed: Yes Side of Body: Left Joint Aspirated: Knee Ultrasound Guidance Used: No Skin Prep: Povidone-Iodine Needle Size Used: 22 G Fluid Clarity: Clear Total Fluid Removed (mls): 6 Medication Injected: Triamcinolone Acetate, Methylprednisolone, Lidocaine Patient Tolorated Procedure: Well Complications: None
--- NOTE | 2017-09-20 15:01 | CP.PCM.PN ---
Subjective - Date & Time of Evaluation Date of Evaluation: 09/20/17 Time of Evaluation: 15:00 - Subjective Subjective: Patient did much better with the low dose of Oxycontin. Slept much better and transferred much better as well hopefully today's knee injection will continue his improvement Objective - Vital Signs/Intake and Output Vital Signs (last 24 hours): Temp Pulse Resp BP Pulse Ox 97.5 F L 61 20 134/70 100 09/20/17 08:04 09/20/17 08:04 09/20/17 08:04 09/20/17 08:04 09/20/17 08:04 - Medications Medications: Current Medications Alprazolam (Xanax) 0.5 mg PO TID [facility] Last Admin: 09/20/17 12:37 Dose: 0.5 mg Aspirin (Aspirin Chewable) 81 mg PO DAILY [facility] Last Admin: 09/20/17 08:18 Dose: 81 mg Azathioprine (Imuran) 50 mg PO BID [facility] Last Admin: 09/20/17 08:18 Dose: 50 mg Levothyroxine Sodium (Synthroid) 25 mcg PO DAILY@0630 [facility] Last Admin: 09/20/17 05:35 Dose: 25 mcg Metoprolol Succinate (Toprol Xl) 50 mg PO QD5 [facility] Last Admin: 09/19/17 17:36 Dose: 50 mg Oxycodone HCl (Oxycontin Extended Release Tab) 10 mg PO Q12 [facility] Stop: 09/22/17 21:01 Last Admin: 09/20/17 08:17 Dose: 10 mg Oxycodone/Acetaminophen (Percocet 5/325 Mg Tab) 2 tab PO Q4 PRN PRN Reason: Pain, moderate (4-7) Stop: 09/21/17 17:01 Pantoprazole Sodium (Protonix Ec Tab) 40 mg PO DAILY [facility] Last Admin: 09/20/17 08:18 Dose: 40 mg Prednisone (Prednisone Tab) 20 mg PO TID [facility] Last Admin: 09/20/17 08:18 Dose: 20 mg Ticagrelor (Brilinta) 90 mg PO BID [facility] Last Admin: 09/20/17 08:19 Dose: 90 mg Valsartan (Diovan) 160 mg PO DAILY [facility] Last Admin: 09/20/17 08:18 Dose: 160 mg Zolpidem Tartrate (Ambien) 10 mg PO HS PRN PRN Reason: Insomnia Last Admin: 09/18/17 23:05 Dose: 10 mg - Labs Labs: 09/20/17 06:41 09/20/17 06:41
[2017-09-20] MEDS: Metoprolol Succinate 50 mg XL Tab PO SCH (17:14)
[2017-09-21] MEDS ORDERED: guaiFENesin-Codeine 100-10mg/5ml Syrup (5 ml) UD PO ONE (01:28)
[2017-09-21] MEDS: Levothyroxine 25 MCG TAB PO SCH (07:04)
[2017-09-21] MEDS ORDERED: guaiFENesin-Codeine 100-10mg/5ml Syrup (5 ml) UD PO PRN (07:05)
[2017-09-21] MEDS: guaiFENesin-Codeine 100-10mg/5ml Syrup (5 ml) UD PO PRN ×2 (08:58→21:21)
[2017-09-21] MEDS ORDERED: guaiFENesin-Codeine 100-10mg/5ml Syrup (5 ml) UD PO SCH ×2 (09:00)
[2017-09-21] MEDS: Pantoprazole 40 mg EC Tab PO SCH (09:01)
[2017-09-21] MEDS: oxyCODONE 10 mg ER Tab (oxyCONTIN) PO SCH ×2 (09:31→21:19)
--- NOTE | 2017-09-21 09:44 | PN ---
DATE: 09/21/2017 SUBJECTIVE: The patient is seen and examined. The patient is seen for Dr. Hernandez while he is away. The patient is in Transitional Care Unit. Consults noted and appreciated. The patient intraarticular injection in knee, which seems to help. Complains of generalized pain and multiple joint pain. No chest pain. No shortness of breath. No abdominal pain. PHYSICAL EXAMINATION: GENERAL: The patient is in no acute distress. VITAL SIGNS: Stable. HEART: S1 and S2, normal and regular. LUNGS: Good bilateral air exchange. ABDOMEN: Soft and nontender. EXTREMITIES: No edema. No calf swelling. No tenderness. No acute ischemia. The patient has chronic arthritis. CENTRAL NERVOUS SYSTEM: Essentially unchanged. DIAGNOSTIC DATA: Available diagnostic data reviewed. PLAN: Overall, the patient's general medical condition is stable. Plan as ordered. Case and plan were discussed with the patient and nursing staff. Gerardo Myers MD
[2017-09-21] MEDS: Metoprolol Succinate 50 mg XL Tab PO SCH (16:55)
[2017-09-22] MEDS: Oxycodone/Acetaminophen 5/325 mg Tab PO PRN ×2 (04:06→12:14)
[2017-09-22] MEDS: guaiFENesin-Codeine 100-10mg/5ml Syrup (5 ml) UD PO PRN ×3 (04:31→23:32)
[2017-09-22] MEDS: Levothyroxine 25 MCG TAB PO SCH (06:03)
[2017-09-22] MEDS: Pantoprazole 40 mg EC Tab PO SCH (08:46)
[2017-09-22] MEDS: oxyCODONE 10 mg ER Tab (oxyCONTIN) PO SCH ×2 (08:48→21:40)
--- NOTE | 2017-09-22 09:59 | PN ---
DATE: 09/22/2017 SUBJECTIVE: The patient is seen and examined. Interim events noted. The patient remains in Transitional Care Unit. Awake and responsive. Feels okay. Complains of generalized pain, weakness, tiredness, and fatigue. PHYSICAL EXAMINATION: GENERAL: The patient is in no acute distress. VITAL SIGNS: Stable. HEART: S1 and S2, normal and regular. LUNGS: Good bilateral air exchange. ABDOMEN: Soft and nontender. EXTREMITIES: No edema, no calf swelling. No tenderness. No acute ischemia. CENTRAL NERVOUS SYSTEM: Exam is essentially unchanged. DIAGNOSTIC DATA: Available diagnostic data reviewed. Vitamin B12 level is low up to 62. TSH level is acceptable. PLAN: Overall, the patient is clinically stable. Has B12 deficiency, we will start the patient on B12 injection. Plan as ordered. Case and plan discussed with the patient. Gerardo Myers MD
[2017-09-22] MEDS: Metoprolol Succinate 50 mg XL Tab PO SCH (17:02)
--- NOTE | 2017-09-22 18:22 | CP.PCM.PN ---
Subjective - Date & Time of Evaluation Date of Evaluation: 09/22/17 Time of Evaluation: 18:20 - Subjective Subjective: Patient seen and excellent relief from my Steroid injection 09/20/17 He now wants either shoulder to be done I explained again that he appears to have complete rotator cuff tears and that the injection would purely be for pain relief with no expected improvement in ROM He understood and wants to proceed ambulation markedly improved Objective - Vital Signs/Intake and Output Vital Signs (last 24 hours): Temp Pulse Resp BP Pulse Ox 97.0 F L 78 20 131/69 99 09/22/17 16:30 09/22/17 17:02 09/22/17 16:30 09/22/17 17:02 09/22/17 16:30 - Medications Medications: Current Medications Alprazolam (Xanax) 0.5 mg PO TID [facility] Last Admin: 09/22/17 17:01 Dose: 0.5 mg Aspirin (Aspirin Chewable) 81 mg PO DAILY [facility] Last Admin: 09/22/17 08:45 Dose: 81 mg Azathioprine (Imuran) 50 mg PO BID [facility] Last Admin: 09/22/17 17:01 Dose: 50 mg Cyanocobalamin (Vitamin B12 1000 Mcg/Ml Inj) 1,000 mcg IM DAILY [facility] Stop: 09/26/17 09:01 Last Admin: 09/22/17 08:46 Dose: 1,000 mcg Guaifenesin/Codeine Phosphate (Robitussin W/Codeine) 10 ml PO TID PRN PRN Reason: Cough and congestion Last Admin: 09/22/17 13:21 Dose: 10 ml Levothyroxine Sodium (Synthroid) 25 mcg PO DAILY@0630 [facility] Last Admin: 09/22/17 06:03 Dose: 25 mcg Metoprolol Succinate (Toprol Xl) 50 mg PO QD5 [facility] Last Admin: 09/22/17 17:02 Dose: 50 mg Oxycodone HCl (Oxycontin Extended Release Tab) 10 mg PO Q12 [facility] Stop: 09/22/17 21:01 Last Admin: 09/22/17 08:48 Dose: 10 mg Oxycodone/Acetaminophen (Percocet 5/325 Mg Tab) 2 tab PO Q6 PRN PRN Reason: Pain, moderate (4-7) Stop: 09/25/17 03:55 Last Admin: 09/22/17 12:14 Dose: 2 tab Pantoprazole Sodium (Protonix Ec Tab) 40 mg PO DAILY [facility] Last Admin: 09/22/17 08:46 Dose: 40 mg Prednisone (Prednisone Tab) 20 mg PO TID [facility] Last Admin: 09/22/17 17:02 Dose: 20 mg Ticagrelor (Brilinta) 90 mg PO BID [facility] Last Admin: 09/22/17 17:01 Dose: 90 mg Valsartan (Diovan) 160 mg PO DAILY [facility] Last Admin: 09/22/17 08:46 Dose: 160 mg Zolpidem Tartrate (Ambien) 10 mg PO HS PRN PRN Reason: Insomnia Last Admin: 09/21/17 22:56 Dose: 10 mg - Labs Labs: 09/20/17 06:41 09/20/17 06:41
[2017-09-22] MEDS ORDERED: Dexamethasone 4 mg/1 ml IAA ONE (18:45)
[2017-09-22] MEDS ORDERED: Triamcinolone Acetonide 40 mg/mL Inj IAA ONE (19:00)
[2017-09-22] MEDS ORDERED: Lidocaine 1% PF (5ml) Amp INJ ONE (19:00)
[2017-09-22] MEDS ORDERED: Lidocaine 1% (10 ml) Inj IAA ONE (19:00)
[2017-09-23] MEDS: Levothyroxine 25 MCG TAB PO SCH (06:17)
[2017-09-23] MEDS: Pantoprazole 40 mg EC Tab PO SCH (08:41)
[2017-09-23] MEDS: Oxycodone/Acetaminophen 5/325 mg Tab PO PRN ×2 (08:43→17:57)
--- NOTE | 2017-09-23 08:52 | CP.PCM.PN ---
Subjective - Date & Time of Evaluation Date of Evaluation: 09/23/17 Time of Evaluation: 07:20 - Subjective Subjective: Patient seen and examined bedside with Dr bledsoe. Patient reports doing better with physical therapy. Patient c/o dry cough occs. denies chest pain, f,n,v,d, abd pain Patient reports that he was seen by neurologist and reports he is receiving vit B12 injection. Objective - Vital Signs/Intake and Output Vital Signs (last 24 hours): Temp Pulse Resp BP Pulse Ox 97.7 F 66 20 132/74 96 09/23/17 08:48 09/23/17 08:48 09/23/17 08:48 09/23/17 08:48 09/23/17 08:48 - Medications Medications: Current Medications Alprazolam (Xanax) 0.5 mg PO TID [facility] Last Admin: 09/22/17 17:01 Dose: 0.5 mg Aspirin (Aspirin Chewable) 81 mg PO DAILY [facility] Last Admin: 09/22/17 08:45 Dose: 81 mg Azathioprine (Imuran) 50 mg PO BID [facility] Last Admin: 09/22/17 17:01 Dose: 50 mg Cyanocobalamin (Vitamin B12 1000 Mcg/Ml Inj) 1,000 mcg IM DAILY [facility] Stop: 09/26/17 09:01 Last Admin: 09/22/17 08:46 Dose: 1,000 mcg Guaifenesin/Codeine Phosphate (Robitussin W/Codeine) 10 ml PO TID PRN PRN Reason: Cough and congestion Last Admin: 09/22/17 23:32 Dose: 10 ml Levothyroxine Sodium (Synthroid) 25 mcg PO DAILY@0630 [facility] Last Admin: 09/23/17 06:17 Dose: 25 mcg Metoprolol Succinate (Toprol Xl) 50 mg PO QD5 [facility] Last Admin: 09/22/17 17:02 Dose: 50 mg Oxycodone/Acetaminophen (Percocet 5/325 Mg Tab) 2 tab PO Q6 PRN PRN Reason: Pain, moderate (4-7) Stop: 09/25/17 03:55 Last Admin: 09/22/17 12:14 Dose: 2 tab Pantoprazole Sodium (Protonix Ec Tab) 40 mg PO DAILY [facility] Last Admin: 09/22/17 08:46 Dose: 40 mg Prednisone (Prednisone Tab) 20 mg PO TID [facility] Last Admin: 09/22/17 17:02 Dose: 20 mg Ticagrelor (Brilinta) 90 mg PO BID [facility] Last Admin: 09/22/17 17:01 Dose: 90 mg Valsartan (Diovan) 160 mg PO DAILY [facility] Last Admin: 09/22/17 08:46 Dose: 160 mg Zolpidem Tartrate (Ambien) 10 mg PO HS PRN PRN Reason: Insomnia Last Admin: 09/22/17 22:51 Dose: 10 mg - Labs Labs: 09/20/17 06:41 09/20/17 06:41 - Constitutional Appears: Non-toxic, No Acute Distress - Head Exam Head Exam: ATRAUMATIC, NORMOCEPHALIC - Eye Exam Eye Exam: Normal appearance - ENT Exam ENT Exam: Mucous Membranes Moist - Respiratory Exam Respiratory Exam: Clear to Ausculation Bilateral. absent: Rhonchi, Wheezes - Cardiovascular Exam Cardiovascular Exam: REGULAR RHYTHM, +S1, +S2 - GI/Abdominal Exam GI & Abdominal Exam: Soft, Normal Bowel Sounds. 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 Liver steatosis -f/u outpatient with user experience architect Dr Bansal for modification of medications -f/u CBC, CMP 5) low vit B 12 - c/w cyanocobalamine injection 6) DVT Prophylaxis -Lovenox 40 mg sc daily
--- NOTE | 2017-09-23 08:57 | CON ---
DATE: 09/22/2017 NEUROLOGY CONSULTATION CHIEF COMPLAINT: Generalized weakness. CURRENT HISTORY OF PRESENT ILLNESS: This is a 62-year-old male with past medical history of COPD, CHF, coronary artery disease status post CABG and triple bypass on 06/07/2013, three stents last one in 2018, recently discharged from cleared by cardiology for chest pain, elevation of troponin related to his SLE. He was in acute rehab for bilateral lower extremity leg weakness and . He has a history of right total knee replacement and left knee pain, which is being managed by injections. He has evidence of neuropathy based on examination as well as he had B12 deficiency,he will be replacement. He is undergoing physical therapy at this moment. PAST MEDICAL HISTORY: As above. SOCIAL HISTORY: No illicit drug use, smoking or EtOH abuse. Quit alcohol 6 years ago. He was a former smoker, he smoked 1 pack per day for 20 years, he quit 5 years ago. MEDICATIONS: Reviewed by nurse reconciliation sheet. REVIEW OF SYSTEMS: A 14-point review of systems is negative except in the HPI. ALLERGIES: NO KNOWN DRUG ALLERGIES. PHYSICAL EXAMINATION: GENERAL: The patient is seen up in bed in no acute distress. VITAL SIGNS: Temperature 97.7, pulse rate 70, blood pressure 149/72, respiratory rate 20, and oxygen saturation 96% on room air. HEENT: Head is atraumatic and normocephalic. PERRLA. Extraocular muscles are intact. NECK: Supple. No JVD. No adenopathy noted. CARDIOPULMONARY: S1 and S2, normal rate and rhythm. No murmurs, rubs or gallops. LUNGS: Clear to auscultation. No adventitious sounds. ABDOMEN: Soft, nontender, and nondistended. Bowel sounds are present. EXTREMITIES: No clubbing, no cyanosis. Peripheral pulses 2+ felt bilaterally. NEUROLOGIC: The patient is alert and oriented to person, place, month, and year. Speech is fluent without errors. Cranial nerves II-XII are intact. Motor exam: Moves all extremities equally. Toes are downgoing bilaterally. Sensory: Decreased light touch and pinprick up to the calves bilaterally. Decreased vibration at the toes. DTRs are 2+ throughout except for 1 at the both knees and absent at the ankles. Coordination: [id number] intact. No dysmetria noted. Gait is deferred for now, is in a wheelchair. LABORATORY DATA: Labs are reviewed. ASSESSMENT AND RECOMMENDATIONS: This is a 62-year-old man with a history of chronic obstructive pulmonary disease, history of coronary artery disease status post coronary artery bypass grafting, and systemic lupus erythematosus on Imuran as well as daily prednisone, bilateral leg weakness. 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 At this time, I will recommend: 1. Outpatient EMG nerve conduction study to assess for neuropathy and myopathy. 2. Recommend to reduce the steroids from 3 times a day to 2 times a day. 3. Continue prior dose of Imuran. 4. Continue with PT and OT for his underlying deconditioned state. Thank you for this consult. Cipriano Auguste MD
[2017-09-23] MEDS: oxyCODONE 10 mg ER Tab (oxyCONTIN) PO SCH ×2 (10:49→21:26)
[2017-09-23] MEDS ORDERED: Barium Sulfate for Susp 98% w/w 340g Bottle ONE (14:15)
[2017-09-23] MEDS ORDERED: Barium Sulfate Susp 0.1% w/v, 0.1% w/w 450 mL Bottle PO ONE (14:19)
[2017-09-23] MEDS: Metoprolol Succinate 50 mg XL Tab PO SCH (17:03)
[2017-09-23] MEDS: guaiFENesin-Codeine 100-10mg/5ml Syrup (5 ml) UD PO PRN (17:27)
[2017-09-24] MEDS: guaiFENesin-Codeine 100-10mg/5ml Syrup (5 ml) UD PO PRN (00:14)
[2017-09-24] MEDS: Levothyroxine 25 MCG TAB PO SCH (06:38)
[2017-09-24] MEDS: oxyCODONE 10 mg ER Tab (oxyCONTIN) PO SCH ×2 (09:11→20:49)
[2017-09-24] MEDS: Pantoprazole 40 mg EC Tab PO SCH (09:12)
--- NOTE | 2017-09-24 14:44 | CP.PCM.PN ---
Subjective - Date & Time of Evaluation Date of Evaluation: 09/24/17 Time of Evaluation: 07:30 - Subjective Subjective: Patient seen and examined bedside with Dr Myers. Patient reports he is improving with PT. Denies sOB, Chest pain,fever. Reports that cough has improved. no overnight events. Objective - Vital Signs/Intake and Output Vital Signs (last 24 hours): Temp Pulse Resp BP Pulse Ox 98.1 F 70 20 145/70 100 09/24/17 07:55 09/24/17 07:55 09/24/17 07:55 09/24/17 07:55 09/24/17 07:55 - Medications Medications: Current Medications Alprazolam (Xanax) 0.5 mg PO TID [facility] Last Admin: 09/24/17 13:05 Dose: 0.5 mg Aspirin (Aspirin Chewable) 81 mg PO DAILY [facility] Last Admin: 09/24/17 09:12 Dose: 81 mg Azathioprine (Imuran) 50 mg PO BID [facility] Last Admin: 09/24/17 09:12 Dose: 50 mg Cyanocobalamin (Vitamin B12 1000 Mcg/Ml Inj) 1,000 mcg IM DAILY [facility] Stop: 09/26/17 09:01 Last Admin: 09/24/17 10:46 Dose: 1,000 mcg Guaifenesin/Codeine Phosphate (Robitussin W/Codeine) 10 ml PO TID PRN PRN Reason: Cough and congestion Last Admin: 09/24/17 00:14 Dose: 10 ml Levothyroxine Sodium (Synthroid) 25 mcg PO DAILY@0630 [facility] Last Admin: 09/24/17 06:38 Dose: 25 mcg Metoprolol Succinate (Toprol Xl) 50 mg PO QD5 [facility] Last Admin: 09/23/17 17:03 Dose: 50 mg Oxycodone HCl (Oxycontin Extended Release Tab) 10 mg PO Q12 [facility] Stop: 09/26/17 09:01 Last Admin: 09/24/17 09:11 Dose: 10 mg Oxycodone/Acetaminophen (Percocet 5/325 Mg Tab) 2 tab PO Q6 PRN PRN Reason: Pain, moderate (4-7) Stop: 09/25/17 03:55 Last Admin: 09/23/17 17:57 Dose: 2 tab Pantoprazole Sodium (Protonix Ec Tab) 40 mg PO DAILY [facility] Last Admin: 09/24/17 09:12 Dose: 40 mg Prednisone (Prednisone Tab) 20 mg PO TID [facility] Last Admin: 09/24/17 13:05 Dose: 20 mg Ticagrelor (Brilinta) 90 mg PO BID [facility] Last Admin: 09/24/17 09:13 Dose: 90 mg Valsartan (Diovan) 160 mg PO DAILY [facility] Last Admin: 09/24/17 09:13 Dose: 160 mg Zolpidem Tartrate (Ambien) 10 mg PO HS PRN PRN Reason: Insomnia Last Admin: 09/23/17 23:21 Dose: 10 mg - Labs Labs: 09/20/17 06:41 09/20/17 06:41 - Constitutional Appears: Non-toxic, No Acute Distress - ENT Exam ENT Exam: Mucous Membranes Moist - Respiratory Exam Respiratory Exam: Clear to Ausculation Bilateral. absent: Rales, Rhonchi, Wheezes - Cardiovascular Exam Cardiovascular Exam: REGULAR RHYTHM, +S1, +S2 - GI/Abdominal Exam GI & Abdominal Exam: Soft, Normal Bowel Sounds. 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 Liver steatosis -f/u outpatient with ballet master/mistress Dr Bansal for modification of medications -f/u CBC, CMP 5) low vit B 12 - c/w cyanocobalamine injection 6) DVT Prophylaxis -Lovenox 40 mg sc daily
[2017-09-24] MEDS: Oxycodone/Acetaminophen 5/325 mg Tab PO PRN (16:07)
[2017-09-24] MEDS: Metoprolol Succinate 50 mg XL Tab PO SCH (17:20)
[2017-09-25] MEDS: Levothyroxine 25 MCG TAB PO SCH (05:46)
--- NOTE | 2017-09-25 08:30 | CP.PCM.PN ---
Subjective - Date & Time of Evaluation Date of Evaluation: 09/25/17 Time of Evaluation: 07:20 - Subjective Subjective: Patient seen and examined bedside with Dr Myers. Patient reports he is improving with PT. Denies SOB, Chest pain, fever. Reports occs cough partially alleviated with medications. No overnight events. Objective - Vital Signs/Intake and Output Vital Signs (last 24 hours): Temp Pulse Resp BP Pulse Ox 98.1 F 71 20 135/78 97 09/25/17 08:20 09/25/17 08:20 09/25/17 08:20 09/25/17 08:20 09/25/17 08:20 - Medications Medications: Current Medications Alprazolam (Xanax) 0.5 mg PO TID [facility] Last Admin: 09/24/17 17:17 Dose: 0.5 mg Aspirin (Aspirin Chewable) 81 mg PO DAILY [facility] Last Admin: 09/24/17 09:12 Dose: 81 mg Azathioprine (Imuran) 50 mg PO BID [facility] Last Admin: 09/24/17 17:20 Dose: 50 mg Cyanocobalamin (Vitamin B12 1000 Mcg/Ml Inj) 1,000 mcg IM DAILY [facility] Stop: 09/26/17 09:01 Last Admin: 09/24/17 10:46 Dose: 1,000 mcg Guaifenesin/Codeine Phosphate (Robitussin W/Codeine) 10 ml PO TID PRN PRN Reason: Cough and congestion Last Admin: 09/25/17 00:00 Dose: 10 ml Levothyroxine Sodium (Synthroid) 25 mcg PO DAILY@0630 [facility] Last Admin: 09/25/17 05:46 Dose: 25 mcg Metoprolol Succinate (Toprol Xl) 50 mg PO QD5 [facility] Last Admin: 09/24/17 17:20 Dose: 50 mg Oxycodone HCl (Oxycontin Extended Release Tab) 10 mg PO Q12 [facility] Stop: 09/26/17 09:01 Last Admin: 09/24/17 20:49 Dose: 10 mg Pantoprazole Sodium (Protonix Ec Tab) 40 mg PO DAILY [facility] Last Admin: 09/24/17 09:12 Dose: 40 mg Prednisone (Prednisone Tab) 20 mg PO TID [facility] Last Admin: 09/24/17 17:20 Dose: 20 mg Ticagrelor (Brilinta) 90 mg PO BID [facility] Last Admin: 09/24/17 17:20 Dose: 90 mg Valsartan (Diovan) 160 mg PO DAILY [facility] Last Admin: 09/24/17 09:13 Dose: 160 mg Zolpidem Tartrate (Ambien) 10 mg PO HS PRN PRN Reason: Insomnia Last Admin: 09/24/17 23:17 Dose: 10 mg - Labs Labs: 09/20/17 06:41 09/20/17 06:41 - Constitutional Appears: Non-toxic, No Acute Distress - Head Exam Head Exam: ATRAUMATIC, NORMOCEPHALIC - Eye Exam Eye Exam: Normal appearance - ENT Exam ENT Exam: Mucous Membranes Moist - Respiratory Exam Respiratory Exam: Clear to Ausculation Bilateral. absent: Rhonchi, Wheezes - Cardiovascular Exam Cardiovascular Exam: +S1, +S2 - GI/Abdominal Exam GI & Abdominal Exam: Soft, Normal Bowel Sounds. 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 Liver steatosis -f/u outpatient with parking enforcement manager Dr Bansal for modification of medications -f/u CBC, CMP 5) low vit B 12 - c/w cyanocobalamine injection ( 5 doses) 6) DVT Prophylaxis -Lovenox 40 mg sc daily
[2017-09-25] MEDS: Pantoprazole 40 mg EC Tab PO SCH (08:34)
[2017-09-25] MEDS: oxyCODONE 10 mg ER Tab (oxyCONTIN) PO SCH ×2 (08:35→21:14)
[2017-09-25] MEDS: Oxycodone/Acetaminophen 5/325 mg Tab PO PRN ×2 (12:56→18:28)
[2017-09-25] MEDS: Metoprolol Succinate 50 mg XL Tab PO SCH (17:10)
[2017-09-25] MEDS: guaiFENesin-Codeine 100-10mg/5ml Syrup (5 ml) UD PO PRN ×2 (21:17)
[2017-09-26] MEDS: Levothyroxine 25 MCG TAB PO SCH (06:24)
[2017-09-26] MEDS: Pantoprazole 40 mg EC Tab PO SCH (08:28)
[2017-09-26] MEDS: oxyCODONE 10 mg ER Tab (oxyCONTIN) PO SCH ×2 (08:30→21:24)
--- NOTE | 2017-09-26 09:20 | PN ---
DATE: 09/26/2017 SUBJECTIVE: The patient seen and examined. Interim events noted. The patient remains in Transitional Care Unit. The patient is sleeping, arousable, and feels okay. No new complaint of chest pain or shortness of breath. Joint pains are present, but getting better. Physical Therapy is helping. Vitamin B12 B12 injection also is helping. PHYSICAL EXAMINATION: GENERAL: The patient is in no acute distress. VITAL SIGNS: Stable. HEART: S1 and S2 are normal and regular. LUNGS: Good bilateral air exchange. ABDOMEN: Soft and nontender. EXTREMITIES: No calf swelling. No tenderness. No acute ischemia. CENTRAL NERVOUS SYSTEM: Exam is essentially unchanged. DIAGNOSTIC DATA: Available diagnostic data reviewed. ASSESSMENT AND PLAN: Overall, the patient's general medical condition is stable. Plan as ordered. Gerardo Myers MD
--- NOTE | 2017-09-26 10:38 | CP.PCM.PN ---
Subjective - Date & Time of Evaluation Date of Evaluation: 09/26/17 Time of Evaluation: 10:36 - Subjective Subjective: Patient seen in the room knee is excellent after injection but shoulder had no relief He was able to sit to stand independently and was able to march in place with me holding his hands. He would have lost balance without my CG. He is an excellent acute rehab candidate where he can have a short stay and continue with pain management The goal will be to be able to get him home where he has over 20 stairs to negotiate. Objective - Vital Signs/Intake and Output Vital Signs (last 24 hours): Temp Pulse Resp BP Pulse Ox 98.2 F 68 20 142/70 100 09/26/17 07:55 09/26/17 07:55 09/26/17 07:55 09/26/17 07:55 09/26/17 07:55 - Medications Medications: Current Medications Alprazolam (Xanax) 0.5 mg PO TID [facility] Last Admin: 09/26/17 08:29 Dose: 0.5 mg Aspirin (Aspirin Chewable) 81 mg PO DAILY [facility] Last Admin: 09/26/17 08:28 Dose: 81 mg Azathioprine (Imuran) 50 mg PO BID [facility] Last Admin: 09/26/17 08:28 Dose: 50 mg Guaifenesin/Codeine Phosphate (Robitussin W/Codeine) 10 ml PO TID PRN PRN Reason: Cough and congestion Last Admin: 09/25/17 21:17 Dose: 10 ml Levothyroxine Sodium (Synthroid) 25 mcg PO DAILY@0630 [facility] Last Admin: 09/26/17 06:24 Dose: 25 mcg Metoprolol Succinate (Toprol Xl) 50 mg PO QD5 [facility] Last Admin: 09/25/17 17:10 Dose: 50 mg Oxycodone/Acetaminophen (Percocet 5/325 Mg Tab) 2 tab PO Q6 PRN PRN Reason: Pain, severe (8-10) Stop: 09/28/17 12:07 Last Admin: 09/25/17 18:28 Dose: 2 tab Pantoprazole Sodium (Protonix Ec Tab) 40 mg PO DAILY [facility] Last Admin: 09/26/17 08:28 Dose: 40 mg Prednisone (Prednisone Tab) 20 mg PO TID [facility] Last Admin: 09/26/17 08:27 Dose: 20 mg Ticagrelor (Brilinta) 90 mg PO BID [facility] Last Admin: 09/26/17 08:27 Dose: 90 mg Valsartan (Diovan) 160 mg PO DAILY [facility] Last Admin: 09/26/17 08:28 Dose: 160 mg Zolpidem Tartrate (Ambien) 10 mg PO HS PRN PRN Reason: Insomnia Last Admin: 09/25/17 23:14 Dose: 10 mg - Labs Labs: 09/20/17 06:41 09/20/17 06:41
[2017-09-26] MEDS: Oxycodone/Acetaminophen 5/325 mg Tab PO PRN (13:02)
[2017-09-26] MEDS: Metoprolol Succinate 50 mg XL Tab PO SCH (16:35)
[2017-09-26] MEDS: guaiFENesin-Codeine 100-10mg/5ml Syrup (5 ml) UD PO PRN (22:26)
[2017-09-27] MEDS: Levothyroxine 25 MCG TAB PO SCH (07:30)
[2017-09-27 08:06] LABS: HEMOGLOBIN 11.5 g/dL (12.0-18.0); MEAN CELL VOLUME 85.6 fl (80.0-94.0); MEAN CORPUSCULAR HEMOGLOBIN 28.4 pg (27.0-31.0); MEAN CORPUSCULAR HGB CONC 33.2 g/dL (33.0-37.0); RBC 4.06 Mil/uL (4.40-5.90); RED CELL DISTRIBUTION WIDTH 16.8 % (11.5-14.5)
[2017-09-27 08:19] LABS: WHITE BLOOD COUNT 13.6 K/uL (4.8-10.8)
[2017-09-27 08:32] LABS: ALBUMIN 3.3 g/dL (3.5-5.0); ALT/SGPT 172 U/L (21-72); AST/SGOT 109 U/L (17-59); BLOOD UREA NITROGEN 21 mg/dl (9-20); CALCIUM 8.9 mg/dL (8.4-10.2); GFR AFRICAN-AMERICAN > 60; GFR NON-AFRICAN AMERICAN > 60
[2017-09-27] MEDS: oxyCODONE 10 mg ER Tab (oxyCONTIN) PO SCH ×2 (08:34→20:59)
[2017-09-27] MEDS: Pantoprazole 40 mg EC Tab PO SCH (08:41)
--- NOTE | 2017-09-27 09:47 | PN ---
DATE: 09/27/2017 SUBJECTIVE: The patient is seen and examined. Interim events noted. Consults noted and appreciated. The patient remains in Transitional Care Unit. The patient is awake, responsive, feels better. Pain improved, although shoulder discomfort still persist. No chest pain, no shortness of breath. PHYSICAL EXAMINATION: GENERAL: The patient is in no acute distress. VITAL SIGNS: Stable. HEART: S1 and S2, normal and regular. LUNGS: Good bilateral air exchange. ABDOMEN: Soft and nontender. EXTREMITIES: The patient has chronic arthritis. No edema. No calf swelling. No tenderness. No acute ischemia. CENTRAL NERVOUS SYSTEM: Essentially unchanged. PLAN: The patient is more ambulatory and slowly improving. Plan as ordered. Gerardo Myers MD
[2017-09-27] MEDS: Oxycodone/Acetaminophen 5/325 mg Tab PO PRN (14:38)
[2017-09-27] MEDS: Metoprolol Succinate 50 mg XL Tab PO SCH (16:56)
[2017-09-27] MEDS: guaiFENesin-Codeine 100-10mg/5ml Syrup (5 ml) UD PO PRN (20:59)
[2017-09-28] MEDS: Oxycodone/Acetaminophen 5/325 mg Tab PO PRN ×2 (03:42→14:07)
[2017-09-28] MEDS: Levothyroxine 25 MCG TAB PO SCH (06:18)
[2017-09-28 07:42] LABS: HEMOGLOBIN 11.7 g/dL (12.0-18.0); MEAN CELL VOLUME 85.9 fl (80.0-94.0); MEAN CORPUSCULAR HEMOGLOBIN 27.7 pg (27.0-31.0); MEAN CORPUSCULAR HGB CONC 32.3 g/dL (33.0-37.0); RBC 4.23 Mil/uL (4.40-5.90); RED CELL DISTRIBUTION WIDTH 17.5 % (11.5-14.5); WHITE BLOOD COUNT 14.5 K/uL (4.8-10.8)
[2017-09-28 07:52] LABS: ALB/GLOB RATIO 1.1 (1.0-2.1); ALBUMIN 3.3 g/dL (3.5-5.0); ALT/SGPT 170 U/L (21-72); AST/SGOT 109 U/L (17-59); BLOOD UREA NITROGEN 19 mg/dl (9-20); CALCIUM 8.7 mg/dL (8.4-10.2); GFR AFRICAN-AMERICAN > 60; GFR NON-AFRICAN AMERICAN > 60
[2017-09-28] MEDS: Pantoprazole 40 mg EC Tab PO SCH (07:59)
[2017-09-28] MEDS: oxyCODONE 10 mg ER Tab (oxyCONTIN) PO SCH ×2 (08:00→21:30)
--- NOTE | 2017-09-28 11:40 | PN ---
DATE: 09/28/2017 SUBJECTIVE: The patient is seen and examined. Interim events noted. The patient remains in Transitional Care Unit. He feels little better and was able to ambulate more. B12 definitely . No chest pain and no shortness of breath. PHYSICAL EXAMINATION: GENERAL: The patient is in no acute distress. VITAL SIGNS: Stable. HEART: S1 and S2 are normal and regular. LUNGS: Good bilateral air exchange. GASTROINTESTINAL: Abdomen is soft and nontender. EXTREMITIES: No edema and no calf swelling. No tenderness. No acute ischemia. CENTRAL NERVOUS SYSTEM: Exam is essentially unchanged. DIAGNOSTIC DATA: Available diagnostic data reviewed. ASSESSMENT AND PLAN: Overall, the patient's general medical condition is stable and improving. Plan as ordered. Gerardo Myers MD
[2017-09-28] MEDS: Metoprolol Succinate 50 mg XL Tab PO SCH (17:27)
[2017-09-28] MEDS: guaiFENesin-Codeine 100-10mg/5ml Syrup (5 ml) UD PO PRN ×2 (17:31→22:09)
[2017-09-29] MEDS: Levothyroxine 25 MCG TAB PO SCH (06:19)
[2017-09-29 08:07] VITALS: TEMP 98.1
[2017-09-29] MEDS: oxyCODONE 10 mg ER Tab (oxyCONTIN) PO SCH (08:15)
[2017-09-29] MEDS: Pantoprazole 40 mg EC Tab PO SCH (08:20)
--- NOTE | 2017-09-29 09:08 | PN ---
DATE: 09/29/2017 SUBJECTIVE: The patient is seen and examined. Interim events noted. The patient remains in Transitional Care Unit. The patient feels okay and feels little stronger. No new complaint of chest pain or shortness of breath. PHYSICAL EXAMINATION: GENERAL: The patient is in no acute distress. VITAL SIGNS: Stable. HEART: S1 and S2, normal and regular. LUNGS: Good bilateral air exchange. GASTROINTESTINAL: Abdomen is soft and nontender. EXTREMITIES: No edema. No calf swelling. No tenderness. No acute ischemia. CENTRAL NERVOUS SYSTEM: Exam is essentially unchanged. DIAGNOSTIC DATA: Available diagnostic data reviewed. ASSESSMENT AND PLAN: Overall, the patient's general medical condition is stable. Plan as ordered. Gerardo Myers MD
[2017-09-29] MEDS ORDERED: guaiFENesin-Codeine 100-10mg/5ml Syrup (5 ml) UD PO PRN (10:52)
[2017-09-29] MEDS: Oxycodone/Acetaminophen 5/325 mg Tab PO PRN (15:27)
[2017-09-29 17:04] VITALS: PULSE 86
[2017-09-29] MEDS: Metoprolol Succinate 50 mg XL Tab PO SCH (17:04)
[2017-09-29 17:13] VITALS: BP 158/73; O2SAT 98
== END 2017-09-29 18:50 | DRG 556 ==
LOC: H.TCU 15:24
PROVIDERS: ADMIT Family Medicine; ATTEND Family Medicine
PROC: F08Z4FZ Home Management Treatment using Assistive, Adaptive, Supportive or Protective Equipment (ICD-10-PCS; 2017-09-18)
PROC: F07M6FZ Therapeutic Exercise Treatment of Musculoskeletal System - Whole Body using Assistive, Adaptive, Supportive or Protective Equipment (ICD-10-PCS; 2017-09-18)
PROC: 0S9D3ZZ Drainage of Left Knee Joint, Percutaneous Approach (ICD-10-PCS; principal; 2017-09-20)
DX: M62.81 Muscle weakness (generalized) (principal); M32.9 Systemic lupus erythematosus, unspecified; Z87.891 Personal history of nicotine dependence; Z95.1 Presence of aortocoronary bypass graft; Z95.5 Presence of coronary angioplasty implant and graft; Z96.651 Presence of right artificial knee joint; G89.29 Other chronic pain; R74.0 Nonspecific elevation of levels of transaminase and lactic acid dehydrogenase [LDH]; R16.0 Hepatomegaly, not elsewhere classified; R26.81 Unsteadiness on feet; E03.9 Hypothyroidism, unspecified; E53.8 Deficiency of other specified B group vitamins; E78.00 Pure hypercholesterolemia, unspecified; G62.9 Polyneuropathy, unspecified; I11.0 Hypertensive heart disease with heart failure; I25.10 Atherosclerotic heart disease of native coronary artery without angina pectoris; I50.9 Heart failure, unspecified; J44.9 Chronic obstructive pulmonary disease, unspecified; M06.9 Rheumatoid arthritis, unspecified

== ENCOUNTER 2017-09-29 15:57 | Inpatient (IN) | payer OTHER, MEDICARE ==
[2017-09-29 17:33] VITALS: BMI 25.9
[2017-09-29] MEDS: oxyCODONE 10 mg ER Tab (oxyCONTIN) PO SCH (21:20)
[2017-09-29] MEDS: guaiFENesin-Codeine 100-10mg/5ml Syrup (5 ml) UD PO PRN (22:45)
[2017-09-30 00:50] VITALS: RESP 20
[2017-09-30] MEDS: Levothyroxine 25 MCG TAB PO SCH (06:42)
[2017-09-30] MEDS: Pantoprazole 40 mg EC Tab PO SCH (06:43)
[2017-09-30] MEDS: oxyCODONE 10 mg ER Tab (oxyCONTIN) PO SCH ×2 (08:41→20:20)
--- NOTE | 2017-09-30 09:41 | CP.PCM.HP ---
History of Present Illness - History of Present Illness History of Present Illness: 62 yo ,m, PMHx/o SLE on steroids, COPD, CHF, CAD s/p CABG (triple 06/07/2013), 3 stent last one 06/2017 recently discharged from TCU and plan to c/w PT in Acute Rehab. Patient has had PT for b/l weakness, seen by neurologist and treated with vit B 12 while in TCU. Patient will need more PT treatement. Patient seen and examined bedside with Dr Myers today. Patient reports feeling more strong after PT and is happy to c/w PT in acute rehab. Denies SOB, chest pain, cough. Numbness, n,v,d , abd pain PMD: Seth Jenkins Manager Development: Dr Godwin Allergies: NKDA Psurghx: CABG, Right knee replacement. PShx: ETOH quit 6 years ago, former smoker, 1 PPD x 20 years. Quit 5 years ago, denies rect drugs. Present on Admission - Present on Admission Any Indicators Present on Admission: No History of DVT/PE: No History of Uncontrolled Diabetes: No Urinary Catheter: No Decubitus Ulcer Present: No Review of Systems - Review of Systems All systems: reviewed and no additional remarkable complaints except - Musculoskeletal Additional comments: b/l leg muscle weakness Past Patient History - Past Medical History & Family History Past Medical History?: Yes - Past Social History Smoking Status: Former Smoker - CARDIAC Hx Cardiac Disorders: Yes Hx Congestive Heart Failure: Yes Hx Hypercholesterolemia: Yes Hx Hypertension: Yes - PULMONARY Hx Respiratory Disorders: Yes Hx Chronic Obstructive Pulmonary Disease (COPD): Yes - NEUROLOGICAL Hx Neurological Disorder: Yes Other/Comment: SLE - HEENT Hx HEENT Problems: No Other/Comment: uses eyeglasses for reading;. with slight REDDING on left ear - RENAL Hx Chronic Kidney Disease: No - ENDOCRINE/METABOLIC Hx Endocrine Disorders: Yes Hx Hypothyroidism: Yes Hx Systemic Lupus Erythematosus: Yes Other/Comment: Chronic Inflammatory Liver Process - HEMATOLOGICAL/ONCOLOGICAL Hx Blood Disorders: No Hx AIDS: No Hx Human Immunodeficiency Virus (HIV): No - INTEGUMENTARY Hx Dermatological Problems: No - MUSCULOSKELETAL/RHEUMATOLOGICAL Hx Falls: Yes (x2) Hx Rheumatoid Arthritis: Yes - GASTROINTESTINAL Hx Gastrointestinal Disorders: Yes Hx Diverticulitis: Yes - GENITOURINARY/GYNECOLOGICAL Hx Genitourinary Disorders: No - PSYCHIATRIC Hx Substance Use: No Other/Comment: per patient he gets nervous - SURGICAL HISTORY Hx Surgeries: Yes Hx Coronary Artery Bypass Graft: Yes (triple 06/07/2013) Hx Coronary Stent: Yes (3 stent-last one 06/2017) Hx Joint Replacement: Yes (Right Total Knee replacement) - ANESTHESIA Hx Anesthesia: Yes Hx Anesthesia Reactions: No Hx Malignant Hyperthermia: No Meds Allergies/Adverse Reactions: Allergies Allergy/AdvReac Type Severity Reaction Status Date / Time No Known Allergies Allergy Verified 09/29/17 17:34 Physical Exam - Constitutional Appears: Non-toxic, No Acute Distress - Eye Exam Eye Exam: Normal appearance - ENT Exam ENT Exam: Mucous Membranes Moist - Respiratory Exam Respiratory Exam: Clear to Auscultation Bilateral. absent: Rales, Rhonchi, Wheezes - Cardiovascular Exam Cardiovascular Exam: REGULAR RHYTHM, +S1, +S2 - GI/Abdominal Exam GI & Abdominal Exam: Normal Bowel Sounds, Soft. absent: Tenderness - Extremities Exam Extremities exam: Positive for: normal inspection. 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 Liver steatosis -f/u outpatient with chemical research engineer Dr Bansal for modification of medications -f/u CBC, CMP 5) DVT Prophylaxis -Lovenox 40 mg sc daily
--- NOTE | 2017-09-30 13:29 | PSY.TMCNF ---
Nursing - Vital Signs Vital Signs (Last 8 hours): Vital Signs 09/30/17 09/30/17 08:18 08:47 Temperature 98.0 F Pulse Rate 72 80 Respiratory 20 Rate Blood Pressure 133/69 O2 Sat by Pulse 99 99 Oximetry Pain: 4 - Medications/Other Issues Comment: Pt at moderate nutritional risk. goal: 1. Pt to consume 75-100% of meals. Follow-up due on 10/07/2017 - Bladder Management Bladder Pattern: Normal Voiding Method: Toilet, Urinal - Bowel Management Bowel Pattern: Normal Physical Therapy - Bed Mobility Bed Mobility: Moderate Assistance Comment: min A for sit to supine, mod A for supine to sit - Transfers Wheelchair to Mat: Minimal Assistance Sit to Stand: Minimal Assistance - Ambulation Level of Assistance: Contact Guard Distance (ft.): 75 Assistive Devices: Rolling Walker - Stair Negotiation Stairs: Level of Assistance: Verbal Cues, Contact Guard Number of Stairs: 4 Handrails: Bilateral - Standing Balance Static Stand: Contact Guard Assist Dynamic Stand: Minimal Assistance - Pain Management Techniques: Medication Comment: L shoulder - Insight/Carryover Insight/Carryover: Good - Patient/Family Education Comment: Pt ed for role of PT, PT goals, therapy schedule, safety, energy conservation - Assessment/Plan Assessment: PT IE complete this AM. Pt has impaired BLE and core strength, impaired standing balance and endurance. Pt requires min/mod A for bed mobility , min A for transfers, CGA for gait with RW, CGA for stair negotiation with B handrails. Pt will benefit from skilled PT intervention to address deficits, reduce fall risk, and maximize functional independence. Recommend d/c home with home PT. - Goals Timeframe: 2 weeks Goals: Sit < > supine mod I. SIt < > stand mod I. Pt will ambulate 200 ft on even/uneven surfaces mod I with RW. Pt will ascend/descend 21 stairs with one handrail and supervision - Provider Therapist: Nita Mukherjee PT DPT License Number: [id number] Occupational Therapy - Arousal/Attention/Orientation Patient Orientation: Person, Place, Time, Appropriate to Age, Appropriate to Situation - Pain Alleviating Techniques: Medication Comment: L shoulder - Insight/Carryover Insight/Carryover: Good - Patient/Family Education Comment: Pt ed for role of PT, PT goals, therapy schedule, safety, energy conservation - Assessment/Plan Assessment: PT IE complete this AM. Pt has impaired BLE and core strength, impaired standing balance and endurance. Pt requires min/mod A for bed mobility , min A for transfers, CGA for gait with RW, CGA for stair negotiation with B handrails. Pt will benefit from skilled PT intervention to address deficits, reduce fall risk, and maximize functional independence. Recommend d/c home with home PT. - Goals Timeframe: 2 weeks Goals: Sit < > supine mod I. SIt < > stand mod I. Pt will ambulate 200 ft on even/uneven surfaces mod I with RW. Pt will ascend/descend 21 stairs with one handrail and supervision Speech Therapy - Consult Information Patient on Program: Yes Medical Diagnosis: lupus Treatment Diagnosis: mild-moderate pharyngeal dysphagia - Assessment Dysphagia/Swallowing Impairment: Moderate - Plan Assessment: PT IE complete this AM. Pt has impaired BLE and core strength, impaired standing balance and endurance. Pt requires min/mod A for bed mobility , min A for transfers, CGA for gait with RW, CGA for stair negotiation with B handrails. Pt will benefit from skilled PT intervention to address deficits, reduce fall risk, and maximize functional independence. Recommend d/c home with home PT. - Provider Therapist: Berenice Boyd License Number: [id number] Recreational Therapy - Assessment Assessment/Plan: PT IE complete this AM. Pt has impaired BLE and core strength, impaired standing balance and endurance. Pt requires min/mod A for bed mobility , min A for transfers, CGA for gait with RW, CGA for stair negotiation with B handrails. Pt will benefit from skilled PT intervention to address deficits, reduce fall risk, and maximize functional independence. Recommend d/c home with home PT. Nutrition - Current Diet Current Diet/ Supplement/ Feedings: Mech altered(finely chopped)nectar thick liquids heart healthy diet - Appetite Percent Meal Consumed: 50-74% - Assessment/Goals/Time Frame Assessment/Goals/Time Frame: Pt at moderate nutritional risk. goal: 1. Pt to consume 75-100% of meals. Follow-up due on 10/07/2017 - Provider Provider: Martha Patterson RD Case Management - Discharge Plan Discharge Plan: Home with significant other/family Rehabilitation Plan - Treatment Plan Treatment Plan: Physical Therapy, Occupational Therapy, Speech, Dietary, Patient /Family Education - Discharge Plan Discharge to: Home
--- NOTE | 2017-09-30 14:10 | CP.PCM.CON ---
History of Present Illness - History of Present Illness History of Present Illness: Dr Miranda PMR consultation on William Morris, born 1955 who has been admitted to [facility] for acute inpatient rehabilitation. I had treated him up on the TCU and injected the left knee with great success and the left shoulder unfortunately with minimal benefit. He has many stairs at home and is not yet ready to go home safely. He has undergone a right TKR in the past. Review of Systems - Constitutional Constitutional: absent: Anorexia, Chills, Daytime Sleepiness - EENT Eyes: absent: Change in Vision, Dry Eye Ears: absent: Ear Discharge Nose/Mouth/Throat: absent: Nasal Congestion - Cardiovascular Cardiovascular: absent: Chest Pain - Respiratory Respiratory: absent: Dyspnea, Hemoptysis - Gastrointestinal Gastrointestinal: absent: Abdominal Pain - Musculoskeletal Musculoskeletal: Arthralgias (shoulders) - Integumentary Integumentary: absent: Bleeding Lesions - Neurological Neurological: absent: Abnormal Hearing, Abnormal Movements, Disequilibrium Past Patient History - Past Medical History & Family History Past Medical History?: Yes - Past Social History Smoking Status: Former Smoker Drugs: Denies Home Situation {Lives}: With Family (+stairs) - CARDIAC Hx Cardiac Disorders: Yes Hx Congestive Heart Failure: Yes Hx Hypercholesterolemia: Yes Hx Hypertension: Yes - PULMONARY Hx Respiratory Disorders: Yes Hx Chronic Obstructive Pulmonary Disease (COPD): Yes - NEUROLOGICAL Hx Neurological Disorder: Yes Other/Comment: SLE - HEENT Hx HEENT Problems: No Other/Comment: uses eyeglasses for reading;. with slight CACHIL DEHE on left ear - RENAL Hx Chronic Kidney Disease: No - ENDOCRINE/METABOLIC Hx Endocrine Disorders: Yes Hx Hypothyroidism: Yes Hx Systemic Lupus Erythematosus: Yes Other/Comment: Chronic Inflammatory Liver Process - HEMATOLOGICAL/ONCOLOGICAL Hx Blood Disorders: No Hx AIDS: No Hx Human Immunodeficiency Virus (HIV): No - INTEGUMENTARY Hx Dermatological Problems: No - MUSCULOSKELETAL/RHEUMATOLOGICAL Hx Falls: Yes (x2) Hx Rheumatoid Arthritis: Yes - GASTROINTESTINAL Hx Gastrointestinal Disorders: Yes Hx Diverticulitis: Yes - GENITOURINARY/GYNECOLOGICAL Hx Genitourinary Disorders: No - PSYCHIATRIC Hx Substance Use: No Other/Comment: per patient he gets nervous - SURGICAL HISTORY Hx Surgeries: Yes Hx Coronary Artery Bypass Graft: Yes (triple 06/07/2013) Hx Coronary Stent: Yes (3 stent-last one 06/2017) Hx Joint Replacement: Yes (Right Total Knee replacement) - ANESTHESIA Hx Anesthesia: Yes Hx Anesthesia Reactions: No Hx Malignant Hyperthermia: No Meds Allergies/Adverse Reactions: Allergies Allergy/AdvReac Type Severity Reaction Status Date / Time No Known Allergies Allergy Verified 09/29/17 17:34 - Medications Medications: Current Medications Alprazolam (Xanax) 0.5 mg PO Q8 [facility] Last Admin: 09/30/17 13:46 Dose: 0.5 mg Aspirin (Aspirin Chewable) 81 mg PO DAILY [facility] Last Admin: 09/30/17 08:43 Dose: 81 mg Azathioprine (Imuran) 50 mg PO BID [facility] Last Admin: 09/30/17 08:43 Dose: 50 mg Guaifenesin/Codeine Phosphate (Robitussin W/Codeine) 10 ml PO HS PRN PRN Reason: Cough and congestion Last Admin: 09/29/17 22:45 Dose: 10 ml Levothyroxine Sodium (Synthroid) 25 mcg PO DAILY@0630 [facility] Last Admin: 09/30/17 06:42 Dose: 25 mcg Metoprolol Succinate (Toprol Xl) 50 mg PO QD5 [facility] Oxycodone HCl (Oxycontin Extended Release Tab) 10 mg PO Q12 [facility] Stop: 10/02/17 21:01 Last Admin: 09/30/17 08:41 Dose: 10 mg Oxycodone/Acetaminophen (Percocet 5/325 Mg Tab) 2 tab PO Q6 PRN PRN Reason: Pain, severe (8-10) Stop: 10/02/17 19:25 Pantoprazole Sodium (Protonix Ec Tab) 40 mg PO DAILY@0630 [facility] Last Admin: 09/30/17 06:43 Dose: 40 mg Prednisone (Prednisone Tab) 20 mg PO TID [facility] Last Admin: 09/30/17 13:46 Dose: 20 mg Ticagrelor (Brilinta) 90 mg PO BID [facility] Last Admin: 09/30/17 08:42 Dose: 90 mg Valsartan (Diovan) 320 mg PO DAILY [facility] Last Admin: 09/30/17 08:44 Dose: 320 mg Zolpidem Tartrate (Ambien) 5 mg PO HS PRN PRN Reason: Insomnia Last Admin: 09/30/17 01:11 Dose: 5 mg Physical Exam - Constitutional Appears: Non-toxic, No Acute Distress - Head Exam Head Exam: ATRAUMATIC, NORMAL INSPECTION, NORMOCEPHALIC - Eye Exam Eye Exam: EOMI - ENT Exam ENT Exam: Mucous Membranes Moist - Respiratory Exam Respiratory Exam: NORMAL BREATHING PATTERN - Cardiovascular Exam Cardiovascular Exam: REGULAR RHYTHM - GI/Abdominal Exam GI & Abdominal Exam: absent: Distended, Firm - Extremities Exam Extremities exam: Negative for: full ROM (limited to no active shoulder ROM) - Neurological Exam Neurological exam: Alert, CN II-XII Intact, Oriented x3 - Psychiatric Exam Psychiatric exam: Normal Affect, Normal Mood - Skin Skin Exam: Dry Results - Vital Signs Recent Vital Signs: Last Vital Signs Temp 98.0 F 09/30/17 08:18 Pulse 80 09/30/17 08:47 Resp 20 09/30/17 08:18 BP 133/69 09/30/17 08:18 Pulse Ox 99 09/30/17 08:47 Assessment & Plan - Assessment and Plan (Free Text) Assessment: 62 year old male with severe DJD and limited shoulder ROM needs to get better on stairs to be able to safely d/c home Team conf: d/c planning pain controlled GI no constipation or diarrhea Vasc: no evidence of DVT PT/OT: to help increase functional independence
--- NOTE | 2017-09-30 14:14 | PCM.OPOC ---
Physiatry Overall Plan of Care - Overall Plan of Care Estimated Length of Stay in Weeks: 2 Rehab Impairment: Mobility, Gait Etiologic Diagnosis: Other (multi joint DJD, pain and weakness with bilateral rotator cuff tears) Rehab/Medical Prognosis: Fair - Anticipated Interventions Physical Therapy:: Yes Occupational Therapy:: Yes Speech Therapy:: Yes Recreational Therapy:: Yes - Therapy Goals Bed Mobility: Supervision Ambulation: Supervision Functional Positional Changes:: Supervision - Discharge Plan Identification of Barriers to Discharge: Home Situation Discharge Destination: Home
[2017-09-30] MEDS: Metoprolol Succinate 50 mg XL Tab PO SCH (17:15)
[2017-09-30] MEDS: guaiFENesin-Codeine 100-10mg/5ml Syrup (5 ml) UD PO PRN (22:43)
[2017-10-01] MEDS: Oxycodone/Acetaminophen 5/325 mg Tab PO PRN ×2 (04:28→16:42)
[2017-10-01] MEDS: Pantoprazole 40 mg EC Tab PO SCH (05:30)
[2017-10-01] MEDS: Levothyroxine 25 MCG TAB PO SCH (05:30)
--- NOTE | 2017-10-01 08:36 | CP.PCM.PN ---
Subjective - Date & Time of Evaluation Date of Evaluation: 10/01/17 Time of Evaluation: 07:05 - Subjective Subjective: Patient seen and examined bedside with Dr Myers. Patient reports doing well with PT. Denies SOB, chest pain, cough. Numbness, n,v,d , abd pain. no overnight events. Objective - Vital Signs/Intake and Output Vital Signs (last 24 hours): Temp Pulse Resp BP Pulse Ox 97.9 F 78 20 144/70 99 09/30/17 20:34 09/30/17 20:34 09/30/17 20:34 09/30/17 20:34 09/30/17 20:34 - Medications Medications: Current Medications Alprazolam (Xanax) 0.5 mg PO Q8 [facility] Last Admin: 10/01/17 05:30 Dose: 0.5 mg Aspirin (Aspirin Chewable) 81 mg PO DAILY [facility] Last Admin: 09/30/17 08:43 Dose: 81 mg Azathioprine (Imuran) 50 mg PO BID [facility] Last Admin: 09/30/17 17:16 Dose: 50 mg Guaifenesin/Codeine Phosphate (Robitussin W/Codeine) 10 ml PO HS PRN PRN Reason: Cough and congestion Last Admin: 09/30/17 22:43 Dose: 10 ml Levothyroxine Sodium (Synthroid) 25 mcg PO DAILY@0630 [facility] Last Admin: 10/01/17 05:30 Dose: 25 mcg Metoprolol Succinate (Toprol Xl) 50 mg PO QD5 [facility] Last Admin: 09/30/17 17:15 Dose: 50 mg Oxycodone HCl (Oxycontin Extended Release Tab) 10 mg PO Q12 [facility] Stop: 10/02/17 21:01 Last Admin: 09/30/17 20:20 Dose: 10 mg Oxycodone/Acetaminophen (Percocet 5/325 Mg Tab) 2 tab PO Q6 PRN PRN Reason: Pain, severe (8-10) Stop: 10/02/17 19:25 Last Admin: 10/01/17 04:28 Dose: 2 tab Pantoprazole Sodium (Protonix Ec Tab) 40 mg PO DAILY@0630 [facility] Last Admin: 10/01/17 05:30 Dose: 40 mg Prednisone (Prednisone Tab) 20 mg PO TID [facility] Last Admin: 09/30/17 17:16 Dose: 20 mg Ticagrelor (Brilinta) 90 mg PO BID [facility] Last Admin: 09/30/17 17:15 Dose: 90 mg Valsartan (Diovan) 320 mg PO DAILY [facility] Last Admin: 09/30/17 08:44 Dose: 320 mg Zolpidem Tartrate (Ambien) 5 mg PO HS PRN PRN Reason: Insomnia Last Admin: 09/30/17 23:23 Dose: 5 mg - Constitutional Appears: Non-toxic, No Acute Distress - Head Exam Head Exam: ATRAUMATIC, NORMOCEPHALIC - Eye Exam Eye Exam: Normal appearance - ENT Exam ENT Exam: Mucous Membranes Moist - Respiratory Exam Respiratory Exam: Clear to Ausculation Bilateral. absent: Rhonchi, Wheezes - Cardiovascular Exam Cardiovascular Exam: REGULAR RHYTHM, +S1, +S2 - GI/Abdominal Exam GI & Abdominal Exam: Soft, Normal Bowel Sounds. 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 c/w PT in Acute Rehab 2) CAD s/p s/p CABG and 3 stent last one 06/2017 -c/w home medications -Bean Sprout Grower consult appreciated 3) SLE -continue home medications 4) Transaminitis -chronically elevated since 02/2017 -may be secondary to azathioprine( lupus medication) -AST/Alt 211/258 -Hep panel neg 05/2017 -CT abd: liver, pancreas, gallbladder normal 07/2017 -Abd Us: hepatomegaly. Liver steatosis -f/u outpatient with porcelain buildup assistant Dr Bansal for modification of medications -f/u CBC, CMP 5) DVT Prophylaxis -Lovenox 40 mg sc daily
[2017-10-01] MEDS: oxyCODONE 10 mg ER Tab (oxyCONTIN) PO SCH ×2 (08:51→21:45)
[2017-10-01] MEDS: Metoprolol Succinate 50 mg XL Tab PO SCH (17:26)
[2017-10-01] MEDS: guaiFENesin-Codeine 100-10mg/5ml Syrup (5 ml) UD PO PRN (23:42)
[2017-10-02] MEDS: Oxycodone/Acetaminophen 5/325 mg Tab PO PRN ×2 (05:01→13:08)
[2017-10-02] MEDS: Levothyroxine 25 MCG TAB PO SCH (06:10)
[2017-10-02] MEDS: Pantoprazole 40 mg EC Tab PO SCH (06:11)
[2017-10-02] MEDS: oxyCODONE 10 mg ER Tab (oxyCONTIN) PO SCH ×2 (08:32→21:47)
--- NOTE | 2017-10-02 09:27 | CP.PCM.PN ---
Subjective - Date & Time of Evaluation Date of Evaluation: 10/02/17 Time of Evaluation: 07:15 - Subjective Subjective: Patient seen and examined bedside with Dr Myers. Patient sitting having breakfast before PT. Denies SOB, chest pain, cough. Numbness, n,v,d , abd pain. no overnight events. Objective - Vital Signs/Intake and Output Vital Signs (last 24 hours): Temp Pulse Resp BP Pulse Ox 97.2 F L 73 20 145/69 98 10/01/17 20:23 10/01/17 20:23 10/01/17 20:23 10/01/17 20:23 10/01/17 20:23 - Medications Medications: Current Medications Alprazolam (Xanax) 0.5 mg PO Q8 [facility] Last Admin: 10/02/17 06:10 Dose: 0.5 mg Aspirin (Aspirin Chewable) 81 mg PO DAILY [facility] Last Admin: 10/02/17 08:28 Dose: 81 mg Azathioprine (Imuran) 50 mg PO BID [facility] Last Admin: 10/02/17 08:30 Dose: 50 mg Guaifenesin/Codeine Phosphate (Robitussin W/Codeine) 10 ml PO HS PRN PRN Reason: Cough and congestion Last Admin: 10/01/17 23:42 Dose: 10 ml Levothyroxine Sodium (Synthroid) 25 mcg PO DAILY@0630 [facility] Last Admin: 10/02/17 06:10 Dose: 25 mcg Metoprolol Succinate (Toprol Xl) 50 mg PO QD5 [facility] Last Admin: 10/01/17 17:26 Dose: 50 mg Oxycodone HCl (Oxycontin Extended Release Tab) 10 mg PO Q12 [facility] Stop: 10/04/17 21:01 Last Admin: 10/02/17 08:32 Dose: 10 mg Oxycodone/Acetaminophen (Percocet 5/325 Mg Tab) 2 tab PO Q6 PRN PRN Reason: Pain, severe (8-10) Stop: 10/04/17 19:25 Last Admin: 10/02/17 05:01 Dose: 2 tab Pantoprazole Sodium (Protonix Ec Tab) 40 mg PO DAILY@0630 [facility] Last Admin: 10/02/17 06:11 Dose: 40 mg Prednisone (Prednisone Tab) 20 mg PO TID [facility] Last Admin: 10/02/17 08:29 Dose: 20 mg Ticagrelor (Brilinta) 90 mg PO BID [facility] Last Admin: 10/02/17 08:28 Dose: 90 mg Valsartan (Diovan) 320 mg PO DAILY [facility] Last Admin: 10/02/17 08:30 Dose: 320 mg Zolpidem Tartrate (Ambien) 5 mg PO HS PRN PRN Reason: Insomnia Last Admin: 10/01/17 23:42 Dose: 5 mg - Constitutional Appears: Non-toxic, No Acute Distress - Head Exam Head Exam: ATRAUMATIC, NORMOCEPHALIC - Eye Exam Eye Exam: Normal appearance - ENT Exam ENT Exam: Mucous Membranes Moist - Respiratory Exam Respiratory Exam: Clear to Ausculation Bilateral. absent: Rhonchi, Wheezes - Cardiovascular Exam Cardiovascular Exam: REGULAR RHYTHM, +S1, +S2 - GI/Abdominal Exam GI & Abdominal Exam: Soft, Normal Bowel Sounds. 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 c/w PT in Acute Rehab 2) CAD s/p s/p CABG and 3 stent last one 06/2017 -c/w home medications -[employer] Portal Architect consult appreciated 3) SLE -continue home medications 4) Transaminitis -chronically elevated since 02/2017 -may be secondary to azathioprine ( lupus medication) -AST/Alt 211/258 -Hep panel neg 05/2017 -CT abd: liver, pancreas, gallbladder normal 07/2017 -Abd Us: hepatomegaly. Liver steatosis -f/u outpatient with broadcast director operations Dr Bansal for modification of medications -f/u CBC, CMP 5) DVT Prophylaxis -Lovenox 40 mg sc daily
--- NOTE | 2017-10-02 14:58 | CP.PCM.PN ---
Subjective - Date & Time of Evaluation Date of Evaluation: 10/02/17 Time of Evaluation: 14:58 - Subjective Subjective: Patient seen NAD doing well in therapies, ambulating around 9-10 steps still not yet able to do the 20 he has at home remains motivated continue current care Objective - Vital Signs/Intake and Output Vital Signs (last 24 hours): Temp Pulse Resp BP Pulse Ox 98 F 78 20 133/78 98 10/02/17 10:00 10/02/17 10:00 10/02/17 10:00 10/02/17 10:00 10/02/17 10:00 - Medications Medications: Current Medications Alprazolam (Xanax) 0.5 mg PO Q8 [facility] Last Admin: 10/02/17 13:07 Dose: 0.5 mg Aspirin (Aspirin Chewable) 81 mg PO DAILY [facility] Last Admin: 10/02/17 08:28 Dose: 81 mg Azathioprine (Imuran) 50 mg PO BID [facility] Last Admin: 10/02/17 08:30 Dose: 50 mg Guaifenesin/Codeine Phosphate (Robitussin W/Codeine) 10 ml PO HS PRN PRN Reason: Cough and congestion Last Admin: 10/01/17 23:42 Dose: 10 ml Levothyroxine Sodium (Synthroid) 25 mcg PO DAILY@629 [facility] Last Admin: 10/02/17 06:10 Dose: 25 mcg Metoprolol Succinate (Toprol Xl) 50 mg PO QD5 [facility] Last Admin: 10/01/17 17:26 Dose: 50 mg Oxycodone HCl (Oxycontin Extended Release Tab) 10 mg PO Q12 [facility] Stop: 10/04/17 21:01 Last Admin: 10/02/17 08:32 Dose: 10 mg Oxycodone/Acetaminophen (Percocet 5/325 Mg Tab) 2 tab PO Q6 PRN PRN Reason: Pain, severe (8-10) Stop: 10/04/17 19:25 Last Admin: 10/02/17 13:08 Dose: 2 tab Pantoprazole Sodium (Protonix Ec Tab) 40 mg PO DAILY@0630 [facility] Last Admin: 10/02/17 06:11 Dose: 40 mg Prednisone (Prednisone Tab) 20 mg PO TID [facility] Last Admin: 10/02/17 12:44 Dose: 20 mg Ticagrelor (Brilinta) 90 mg PO BID [facility] Last Admin: 10/02/17 08:28 Dose: 90 mg Valsartan (Diovan) 320 mg PO DAILY [facility] Last Admin: 10/02/17 08:30 Dose: 320 mg Zolpidem Tartrate (Ambien) 5 mg PO HS PRN PRN Reason: Insomnia Last Admin: 10/01/17 23:42 Dose: 5 mg
[2017-10-02] MEDS: Metoprolol Succinate 50 mg XL Tab PO SCH (17:12)
[2017-10-02] MEDS: guaiFENesin-Codeine 100-10mg/5ml Syrup (5 ml) UD PO PRN (23:13)
[2017-10-03] MEDS: Oxycodone/Acetaminophen 5/325 mg Tab PO PRN ×2 (05:15→15:27)
[2017-10-03] MEDS: Pantoprazole 40 mg EC Tab PO SCH (06:05)
[2017-10-03] MEDS: Levothyroxine 25 MCG TAB PO SCH (06:05)
[2017-10-03] MEDS: oxyCODONE 10 mg ER Tab (oxyCONTIN) PO SCH ×2 (08:48→21:07)
--- NOTE | 2017-10-03 08:57 | CP.PCM.PN ---
Subjective - Date & Time of Evaluation Date of Evaluation: 10/03/17 Time of Evaluation: 07:25 - Subjective Subjective: Patient seen and examined bedside with Dr Myers. Patient reports is improving with PT and able to climb stairs more steps 9-10 steps but not able to do 20 steps as in his house. Denies SOB, chest pain, cough. Numbness, n,v,d , abd pain. no overnight events. Objective - Vital Signs/Intake and Output Vital Signs (last 24 hours): Temp Pulse Resp BP Pulse Ox 97.9 F 76 20 136/69 98 10/02/17 21:04 10/02/17 21:04 10/02/17 21:04 10/02/17 21:04 10/02/17 21:04 - Medications Medications: Current Medications Alprazolam (Xanax) 0.5 mg PO Q8 [facility] Last Admin: 10/03/17 06:05 Dose: 0.5 mg Aspirin (Aspirin Chewable) 81 mg PO DAILY [facility] Last Admin: 10/03/17 08:41 Dose: 81 mg Azathioprine (Imuran) 50 mg PO BID [facility] Last Admin: 10/02/17 17:13 Dose: 50 mg Guaifenesin/Codeine Phosphate (Robitussin W/Codeine) 10 ml PO HS PRN PRN Reason: Cough and congestion Last Admin: 10/02/17 23:13 Dose: 10 ml Levothyroxine Sodium (Synthroid) 25 mcg PO DAILY@0630 [facility] Last Admin: 10/03/17 06:05 Dose: 25 mcg Metoprolol Succinate (Toprol Xl) 50 mg PO QD5 [facility] Last Admin: 10/02/17 17:12 Dose: 50 mg Oxycodone HCl (Oxycontin Extended Release Tab) 10 mg PO Q12 [facility] Stop: 10/04/17 21:01 Last Admin: 10/03/17 08:48 Dose: 10 mg Oxycodone/Acetaminophen (Percocet 5/325 Mg Tab) 2 tab PO Q6 PRN PRN Reason: Pain, severe (8-10) Stop: 10/04/17 19:25 Last Admin: 10/03/17 05:15 Dose: 2 tab Pantoprazole Sodium (Protonix Ec Tab) 40 mg PO DAILY@0630 [facility] Last Admin: 10/03/17 06:05 Dose: 40 mg Prednisone (Prednisone Tab) 20 mg PO TID [facility] Last Admin: 10/03/17 08:43 Dose: 20 mg Ticagrelor (Brilinta) 90 mg PO BID [facility] Last Admin: 10/03/17 08:41 Dose: 90 mg Valsartan (Diovan) 320 mg PO DAILY [facility] Last Admin: 10/03/17 08:42 Dose: 320 mg Zolpidem Tartrate (Ambien) 5 mg PO HS PRN PRN Reason: Insomnia Last Admin: 10/02/17 23:13 Dose: 5 mg - Constitutional Appears: Non-toxic, No Acute Distress - Head Exam Head Exam: ATRAUMATIC, NORMOCEPHALIC - Eye Exam Eye Exam: Normal appearance - ENT Exam ENT Exam: Mucous Membranes Moist - Respiratory Exam Respiratory Exam: Clear to Ausculation Bilateral. absent: Rhonchi, Wheezes - Cardiovascular Exam Cardiovascular Exam: REGULAR RHYTHM, +S1, +S2 - GI/Abdominal Exam GI & Abdominal Exam: Soft, Normal Bowel Sounds. absent: Tenderness - Extremities Exam Extremities Exam: Normal Inspection. 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 c/w PT in Acute Rehab 2) CAD s/p s/p CABG and 3 stent last one 06/2017 -c/w home medications -Rail[employer] consult appreciated 3) SLE -continue home medications 4) Transaminitis -chronically elevated since 02/2017 -may be secondary to azathioprine ( lupus medication) -AST/Alt 211/258 -Hep panel neg 05/2017 -CT abd: liver, pancreas, gallbladder normal 07/2017 -Abd Us: hepatomegaly. Liver steatosis -f/u outpatient with union organiser Dr Bansal for modification of medications -f/u CBC, CMP 5) DVT Prophylaxis -Lovenox 40 mg sc daily
[2017-10-03] MEDS: Metoprolol Succinate 50 mg XL Tab PO SCH (17:42)
[2017-10-03] MEDS: guaiFENesin-Codeine 100-10mg/5ml Syrup (5 ml) UD PO PRN (23:03)
[2017-10-04] MEDS: Oxycodone/Acetaminophen 5/325 mg Tab PO PRN ×2 (04:08→17:37)
[2017-10-04] MEDS: Levothyroxine 25 MCG TAB PO SCH (06:22)
[2017-10-04] MEDS: Pantoprazole 40 mg EC Tab PO SCH (06:23)
[2017-10-04] MEDS: oxyCODONE 10 mg ER Tab (oxyCONTIN) PO SCH ×2 (08:33→21:37)
[2017-10-04] MEDS: Metoprolol Succinate 50 mg XL Tab PO SCH (17:32)
--- NOTE | 2017-10-04 19:44 | CP.PCM.PN ---
Subjective - Date & Time of Evaluation Date of Evaluation: 10/04/17 Time of Evaluation: 19:43 - Subjective Subjective: Patient seen in the room doing well with guests present very happy with progress no left knee pain following the injection ambulating continues to improve working on stairs which is his primary barrier Objective - Vital Signs/Intake and Output Vital Signs (last 24 hours): Temp Pulse Resp BP Pulse Ox 98.2 F 82 20 120/80 96 10/04/17 08:14 10/04/17 17:32 10/04/17 08:14 10/04/17 17:32 10/04/17 08:14 - Medications Medications: Current Medications Alprazolam (Xanax) 0.5 mg PO Q8 [facility] Last Admin: 10/04/17 14:21 Dose: 0.5 mg Aspirin (Aspirin Chewable) 81 mg PO DAILY [facility] Last Admin: 10/04/17 08:35 Dose: 81 mg Azathioprine (Imuran) 50 mg PO BID [facility] Last Admin: 10/04/17 17:33 Dose: 50 mg Guaifenesin/Codeine Phosphate (Robitussin W/Codeine) 10 ml PO HS PRN PRN Reason: Cough and congestion Last Admin: 10/03/17 23:03 Dose: 10 ml Levothyroxine Sodium (Synthroid) 25 mcg PO DAILY@0630 [facility] Last Admin: 10/04/17 06:22 Dose: 25 mcg Metoprolol Succinate (Toprol Xl) 50 mg PO QD5 [facility] Last Admin: 10/04/17 17:32 Dose: 50 mg Oxycodone HCl (Oxycontin Extended Release Tab) 10 mg PO Q12 [facility] Stop: 10/04/17 21:01 Last Admin: 10/04/17 08:33 Dose: 10 mg Pantoprazole Sodium (Protonix Ec Tab) 40 mg PO DAILY@0630 [facility] Last Admin: 10/04/17 06:23 Dose: 40 mg Prednisone (Prednisone Tab) 20 mg PO TID [facility] Last Admin: 10/04/17 17:32 Dose: 20 mg Ticagrelor (Brilinta) 90 mg PO BID [facility] Last Admin: 10/04/17 17:32 Dose: 90 mg Valsartan (Diovan) 320 mg PO DAILY [facility] Last Admin: 10/04/17 08:35 Dose: 320 mg Zolpidem Tartrate (Ambien) 5 mg PO HS PRN PRN Reason: Insomnia Last Admin: 10/03/17 23:00 Dose: 5 mg
[2017-10-04] MEDS: guaiFENesin-Codeine 100-10mg/5ml Syrup (5 ml) UD PO PRN (23:11)
[2017-10-05] MEDS ORDERED: Oxycodone/Acetaminophen 5/325 mg Tab PO ONE (04:44)
[2017-10-05] MEDS: Pantoprazole 40 mg EC Tab PO SCH (07:00)
[2017-10-05] MEDS: Levothyroxine 25 MCG TAB PO SCH (07:00)
[2017-10-05] MEDS: oxyCODONE 10 mg ER Tab (oxyCONTIN) PO SCH ×2 (09:53→21:45)
[2017-10-05] MEDS: Metoprolol Succinate 50 mg XL Tab PO SCH (16:25)
[2017-10-05] MEDS: guaiFENesin-Codeine 100-10mg/5ml Syrup (5 ml) UD PO PRN (22:44)
[2017-10-06] MEDS: Oxycodone/Acetaminophen 5/325 mg Tab PO PRN ×2 (04:20→16:52)
[2017-10-06] MEDS: Pantoprazole 40 mg EC Tab PO SCH (07:02)
[2017-10-06] MEDS: Levothyroxine 25 MCG TAB PO SCH (07:02)
--- NOTE | 2017-10-06 08:05 | CP.PCM.PN ---
Subjective - Date & Time of Evaluation Date of Evaluation: 10/04/17 Time of Evaluation: 16:00 - Subjective Subjective: Patient is doing a lot better . Claims that his swallowing has improved a lot. Noted increased strenght of both upper and lower extremities. Has no chest pain or SOB. Objective - Vital Signs/Intake and Output Vital Signs (last 24 hours): Temp Pulse Resp BP Pulse Ox 97.7 F 69 20 159/95 H 98 10/06/17 08:01 10/06/17 08:01 10/06/17 08:01 10/06/17 08:01 10/06/17 08:01 - Medications Medications: Current Medications Alprazolam (Xanax) 0.5 mg PO Q8 [facility] Last Admin: 10/06/17 07:02 Dose: 0.5 mg Aspirin (Aspirin Chewable) 81 mg PO DAILY [facility] Last Admin: 10/05/17 09:12 Dose: 81 mg Azathioprine (Imuran) 50 mg PO BID [facility] Last Admin: 10/05/17 16:25 Dose: 50 mg Guaifenesin/Codeine Phosphate (Robitussin W/Codeine) 10 ml PO HS PRN PRN Reason: Cough and congestion Last Admin: 10/05/17 22:44 Dose: 10 ml Levothyroxine Sodium (Synthroid) 25 mcg PO DAILY@0630 [facility] Last Admin: 10/06/17 07:02 Dose: 25 mcg Lidocaine (Lidoderm) 1 ea TD DAILY [facility] Metoprolol Succinate (Toprol Xl) 50 mg PO QD5 [facility] Last Admin: 10/05/17 16:25 Dose: 50 mg Oxycodone HCl (Oxycontin Extended Release Tab) 10 mg PO Q12 [facility] Stop: 10/08/17 09:31 Last Admin: 10/05/17 21:45 Dose: 10 mg Oxycodone/Acetaminophen (Percocet 5/325 Mg Tab) 2 tab PO Q6 PRN PRN Reason: Pain, severe (8-10) Stop: 10/08/17 11:12 Last Admin: 10/06/17 04:20 Dose: 2 tab Pantoprazole Sodium (Protonix Ec Tab) 40 mg PO DAILY@0630 [facility] Last Admin: 10/06/17 07:02 Dose: 40 mg Prednisone (Prednisone Tab) 20 mg PO TID [facility] Last Admin: 05/27/18 16:25 Dose: 20 mg Ticagrelor (Brilinta) 90 mg PO BID [facility] Last Admin: 10/05/17 16:24 Dose: 90 mg Valsartan (Diovan) 320 mg PO DAILY [facility] Last Admin: 10/05/17 09:12 Dose: 320 mg Zolpidem Tartrate (Ambien) 5 mg PO HS PRN PRN Reason: Insomnia Last Admin: 10/06/17 00:13 Dose: 5 mg - Head Exam Head Exam: NORMAL INSPECTION - Eye Exam Eye Exam: Normal appearance - ENT Exam ENT Exam: Mucous Membranes Moist - Respiratory Exam Respiratory Exam: Clear to Ausculation Bilateral - Cardiovascular Exam Cardiovascular Exam: REGULAR RHYTHM - GI/Abdominal Exam GI & Abdominal Exam: Normal Bowel Sounds - Neurological Exam Neurological Exam: Awake, Oriented x3 Assessment and Plan (1) Gait abnormality Status: Acute (2) COPD (chronic obstructive pulmonary disease) Status: Acute (3) CAD (coronary artery disease) Status: Chronic (4) Degenerative arthritis Status: Chronic (5) T2DM (type 2 diabetes mellitus) Status: Chronic - Assessment and Plan (Free Text) Plan: Cont meds Cont tx Cont PT cont meds.
--- NOTE | 2017-10-06 08:11 | CP.PCM.PN ---
Subjective - Date & Time of Evaluation Date of Evaluation: 10/05/17 Time of Evaluation: 14:00 - Subjective Subjective: Patient remains stable Has no chest pain or SOB Afebrile. Doing well with phys therapy Objective - Vital Signs/Intake and Output Vital Signs (last 24 hours): Temp Pulse Resp BP Pulse Ox 97.7 F 69 20 159/95 H 98 10/06/17 08:01 10/06/17 08:01 10/06/17 08:01 10/06/17 08:01 10/06/17 08:01 - Medications Medications: Current Medications Alprazolam (Xanax) 0.5 mg PO Q8 [facility] Last Admin: 10/06/17 07:02 Dose: 0.5 mg Aspirin (Aspirin Chewable) 81 mg PO DAILY [facility] Last Admin: 10/05/17 09:12 Dose: 81 mg Azathioprine (Imuran) 50 mg PO BID [facility] Last Admin: 10/05/17 16:25 Dose: 50 mg Guaifenesin/Codeine Phosphate (Robitussin W/Codeine) 10 ml PO HS PRN PRN Reason: Cough and congestion Last Admin: 10/05/17 22:44 Dose: 10 ml Levothyroxine Sodium (Synthroid) 25 mcg PO DAILY@629 [facility] Last Admin: 10/06/17 07:02 Dose: 25 mcg Lidocaine (Lidoderm) 1 ea TD DAILY [facility] Metoprolol Succinate (Toprol Xl) 50 mg PO QD5 [facility] Last Admin: 10/05/17 16:25 Dose: 50 mg Oxycodone HCl (Oxycontin Extended Release Tab) 10 mg PO Q12 [facility] Stop: 10/08/17 09:31 Last Admin: 10/05/17 21:45 Dose: 10 mg Oxycodone/Acetaminophen (Percocet 5/325 Mg Tab) 2 tab PO Q6 PRN PRN Reason: Pain, severe (8-10) Stop: 10/08/17 11:12 Last Admin: 10/06/17 04:20 Dose: 2 tab Pantoprazole Sodium (Protonix Ec Tab) 40 mg PO DAILY@0630 [facility] Last Admin: 10/06/17 07:02 Dose: 40 mg Prednisone (Prednisone Tab) 20 mg PO TID [facility] Last Admin: 10/05/17 16:25 Dose: 20 mg Ticagrelor (Brilinta) 90 mg PO BID [facility] Last Admin: 10/05/17 16:24 Dose: 90 mg Valsartan (Diovan) 320 mg PO DAILY [facility] Last Admin: 10/05/17 09:12 Dose: 320 mg Zolpidem Tartrate (Ambien) 5 mg PO HS PRN PRN Reason: Insomnia Last Admin: 10/06/17 00:13 Dose: 5 mg - Eye Exam Eye Exam: Normal appearance - ENT Exam ENT Exam: Mucous Membranes Moist - Respiratory Exam Respiratory Exam: Clear to Ausculation Bilateral - Cardiovascular Exam Cardiovascular Exam: REGULAR RHYTHM - GI/Abdominal Exam GI & Abdominal Exam: Normal Bowel Sounds - Neurological Exam Neurological Exam: Awake, Oriented x3 - Psychiatric Exam Psychiatric exam: Normal Mood Assessment and Plan (1) Gait abnormality Status: Acute (2) COPD (chronic obstructive pulmonary disease) Status: Acute (3) CAD (coronary artery disease) Status: Chronic (4) Degenerative arthritis Status: Chronic (5) T2DM (type 2 diabetes mellitus) Status: Chronic (6) Systemic lupus erythematosus (SLE) in adult Status: Acute - Assessment and Plan (Free Text) Plan: Cont meds Cont tx Cont tx pain meds cont PT
[2017-10-06] MEDS: oxyCODONE 10 mg ER Tab (oxyCONTIN) PO SCH ×2 (08:27→21:08)
[2017-10-06] MEDS: Lidocaine 5% Patch TD SCH (09:23)
[2017-10-06] MEDS: Metoprolol Succinate 50 mg XL Tab PO SCH (16:54)
[2017-10-06] MEDS: guaiFENesin-Codeine 100-10mg/5ml Syrup (5 ml) UD PO PRN (22:21)
--- NOTE | 2017-10-07 00:18 | CP.PCM.PN ---
Subjective - Date & Time of Evaluation Date of Evaluation: 10/06/17 Time of Evaluation: 18:35 - Subjective Subjective: Patient is doing a lot better Has no chest pain or SOB. Objective - Vital Signs/Intake and Output Vital Signs (last 24 hours): Temp Pulse Resp BP Pulse Ox 97.9 F 73 20 149/75 97 10/06/17 20:00 10/06/17 20:00 10/06/17 20:00 10/06/17 20:00 10/06/17 20:00 - Medications Medications: Current Medications Alprazolam (Xanax) 0.5 mg PO Q8 [facility] Last Admin: 10/06/17 22:21 Dose: 0.5 mg Aspirin (Aspirin Chewable) 81 mg PO DAILY [facility] Last Admin: 10/06/17 08:29 Dose: 81 mg Azathioprine (Imuran) 50 mg PO BID [facility] Last Admin: 10/06/17 16:53 Dose: 50 mg Guaifenesin/Codeine Phosphate (Robitussin W/Codeine) 10 ml PO HS PRN PRN Reason: Cough and congestion Last Admin: 10/06/17 22:21 Dose: 10 ml Levothyroxine Sodium (Synthroid) 25 mcg PO DAILY@0630 [facility] Last Admin: 10/06/17 07:02 Dose: 25 mcg Lidocaine (Lidoderm) 2 ea TD DAILY [facility] Last Admin: 10/06/17 09:23 Dose: 2 ea Metoprolol Succinate (Toprol Xl) 50 mg PO QD5 [facility] Last Admin: 10/06/17 16:54 Dose: 50 mg Oxycodone HCl (Oxycontin Extended Release Tab) 10 mg PO Q12 [facility] Stop: 10/08/17 09:31 Last Admin: 10/06/17 21:08 Dose: 10 mg Oxycodone/Acetaminophen (Percocet 5/325 Mg Tab) 2 tab PO Q6 PRN PRN Reason: Pain, severe (8-10) Stop: 10/08/17 11:12 Last Admin: 10/06/17 16:52 Dose: 2 tab Pantoprazole Sodium (Protonix Ec Tab) 40 mg PO DAILY@0630 [facility] Last Admin: 10/06/17 07:02 Dose: 40 mg Prednisone (Prednisone Tab) 20 mg PO TID [facility] Last Admin: 10/06/17 16:55 Dose: 20 mg Ticagrelor (Brilinta) 90 mg PO BID [facility] Last Admin: 10/06/17 16:53 Dose: 90 mg Valsartan (Diovan) 320 mg PO DAILY [facility] Last Admin: 10/06/17 08:29 Dose: 320 mg Zolpidem Tartrate (Ambien) 5 mg PO HS PRN PRN Reason: Insomnia Last Admin: 10/06/17 23:32 Dose: 5 mg - Head Exam Head Exam: NORMAL INSPECTION - Eye Exam Eye Exam: Normal appearance - ENT Exam ENT Exam: Mucous Membranes Moist - Respiratory Exam Respiratory Exam: Clear to Ausculation Bilateral - Cardiovascular Exam Cardiovascular Exam: REGULAR RHYTHM - GI/Abdominal Exam GI & Abdominal Exam: Normal Bowel Sounds Assessment and Plan (1) Gait abnormality Status: Acute (2) COPD (chronic obstructive pulmonary disease) Status: Acute (3) CAD (coronary artery disease) Status: Chronic (4) Degenerative arthritis Status: Chronic (5) T2DM (type 2 diabetes mellitus) Status: Chronic (6) Systemic lupus erythematosus (SLE) in adult Status: Acute - Assessment and Plan (Free Text) Plan: Cont meds cont PT pain meds. blood test
[2017-10-07] MEDS: Levothyroxine 25 MCG TAB PO SCH (06:24)
[2017-10-07] MEDS: Pantoprazole 40 mg EC Tab PO SCH (06:24)
[2017-10-07] MEDS: oxyCODONE 10 mg ER Tab (oxyCONTIN) PO SCH ×2 (08:45→21:36)
[2017-10-07] MEDS: Lidocaine 5% Patch TD SCH (08:49)
--- NOTE | 2017-10-07 10:42 | CP.PCM.PN ---
Subjective - Date & Time of Evaluation Date of Evaluation: 10/07/17 Time of Evaluation: 07:15 - Subjective Subjective: Patient seen and examined bedside with Dr Hernandez. Patient doing well on PT. Denies SOB, chest pain, cough. Numbness, n,v,d , abd pain. no overnight events. Objective - Vital Signs/Intake and Output Vital Signs (last 24 hours): Temp Pulse Resp BP Pulse Ox 97.5 F L 82 20 160/82 H 99 10/07/17 07:57 10/07/17 07:57 10/07/17 07:57 10/07/17 07:57 10/07/17 07:57 - Medications Medications: Current Medications Alprazolam (Xanax) 0.5 mg PO Q8 [facility] Last Admin: 10/07/17 06:21 Dose: 0.5 mg Aspirin (Aspirin Chewable) 81 mg PO DAILY [facility] Last Admin: 10/07/17 08:48 Dose: 81 mg Azathioprine (Imuran) 50 mg PO BID [facility] Last Admin: 10/07/17 08:48 Dose: 50 mg Guaifenesin/Codeine Phosphate (Robitussin W/Codeine) 10 ml PO HS PRN PRN Reason: Cough and congestion Last Admin: 10/06/17 22:21 Dose: 10 ml Levothyroxine Sodium (Synthroid) 25 mcg PO DAILY@0630 [facility] Last Admin: 10/07/17 06:24 Dose: 25 mcg Lidocaine (Lidoderm) 2 ea TD DAILY [facility] Last Admin: 10/07/17 08:49 Dose: 2 ea Metoprolol Succinate (Toprol Xl) 50 mg PO QD5 [facility] Last Admin: 10/06/17 16:54 Dose: 50 mg Oxycodone HCl (Oxycontin Extended Release Tab) 10 mg PO Q12 [facility] Stop: 10/08/17 09:31 Last Admin: 10/07/17 08:45 Dose: 10 mg Oxycodone/Acetaminophen (Percocet 5/325 Mg Tab) 2 tab PO Q6 PRN PRN Reason: Pain, severe (8-10) Stop: 10/08/17 11:12 Last Admin: 10/06/17 16:52 Dose: 2 tab Pantoprazole Sodium (Protonix Ec Tab) 40 mg PO DAILY@0630 [facility] Last Admin: 10/07/17 06:24 Dose: 40 mg Prednisone (Prednisone Tab) 20 mg PO TID [facility] Last Admin: 10/07/17 08:47 Dose: 20 mg Ticagrelor (Brilinta) 90 mg PO BID [facility] Last Admin: 10/07/17 08:47 Dose: 90 mg Valsartan (Diovan) 320 mg PO DAILY [facility] Last Admin: 10/07/17 08:49 Dose: 320 mg Zolpidem Tartrate (Ambien) 5 mg PO HS PRN PRN Reason: Insomnia Last Admin: 10/06/17 23:32 Dose: 5 mg - Constitutional Appears: Non-toxic, No Acute Distress - Head Exam Head Exam: ATRAUMATIC, NORMOCEPHALIC - Eye Exam Eye Exam: Normal appearance - ENT Exam ENT Exam: Mucous Membranes Moist - Respiratory Exam Respiratory Exam: Clear to Ausculation Bilateral. absent: Rales, Rhonchi, Wheezes - Cardiovascular Exam Cardiovascular Exam: REGULAR RHYTHM, +S1, +S2 - GI/Abdominal Exam GI & Abdominal Exam: Soft, Normal Bowel Sounds. absent: Tenderness - Extremities Exam Extremities Exam: Normal Inspection. 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 c/w PT in Acute Rehab -improving on PT 2) CAD s/p s/p CABG and 3 stent last one 06/2017 -c/w home medications -[employer]in [employer] consult appreciated 3) SLE -continue home medications 4) Transaminitis -chronically elevated since 02/2017 -may be secondary to azathioprine ( lupus medication) -AST/Alt 211/258 -Hep panel neg 05/2017 -CT abd: liver, pancreas, gallbladder normal 07/2017 -Abd Us: hepatomegaly. Liver steatosis -f/u outpatient with ct technician Dr Bansal for modification of medications -f/u CBC, CMP 5) DVT Prophylaxis -Lovenox 40 mg sc daily
[2017-10-07 11:13] LABS: BASO % 0.1 % (0.0-2.0); EOS # 0.1 K/uL (0.0-0.7); EOS % 0.6 % (0.0-4.0); HEMOGLOBIN 12.7 g/dL (12.0-18.0); LYMPH # 1.1 K/uL (1.0-4.3); MEAN CELL VOLUME 86.1 fl (80.0-94.0); MEAN CORPUSCULAR HEMOGLOBIN 28.1 pg (27.0-31.0); MEAN CORPUSCULAR HGB CONC 32.7 g/dL (33.0-37.0); MEAN PLATELET VOLUME 7.2 fl (7.2-11.7); MONO % 6.6 % (0.0-10.0); NEUT # 13.5 K/uL (1.8-7.0); NEUT % 85.7 % (50.0-75.0); NRBC % 0.1 % (0.0-0.0); PLATELET COUNT 394 K/uL (130-400); RBC 4.52 Mil/uL (4.40-5.90); RED CELL DISTRIBUTION WIDTH 17.7 % (11.5-14.5); WHITE BLOOD COUNT 15.8 K/uL (4.8-10.8)
[2017-10-07 11:26] LABS: ALB/GLOB RATIO 1.2 (1.0-2.1); ALBUMIN 3.9 g/dL (3.5-5.0); ALT/SGPT 147 U/L (21-72); AST/SGOT 104 U/L (17-59); BLOOD UREA NITROGEN 18 mg/dl (9-20); CALCIUM 9.2 mg/dL (8.4-10.2); GFR AFRICAN-AMERICAN > 60; GFR NON-AFRICAN AMERICAN > 60
--- NOTE | 2017-10-07 13:28 | PSY.TMCNF ---
Nursing - Vital Signs Vital Signs (Last 8 hours): Vital Signs 10/07/17 07:57 Temperature 97.5 F L Pulse Rate 82 Respiratory 20 Rate Blood Pressure 160/82 H O2 Sat by Pulse 99 Oximetry Pain: 0 - Medications/Other Issues Comment: Pt is at moderate nutritional risk. Goal-. 1. Pt to consume 75-100% of meals- met, continue. Follow-up assessment due by 10/13/2017. - Bladder Management Bladder Pattern: Normal Voiding Method: Urinal - Bowel Management Bowel Pattern: Normal - Patient/Family Teaching Comments: N/A - Goals/Time Frame Comments: Pt was seen awake and alert sitting in his wheelchair in his room. Pt agreeable to evaluation visit. Pt reported that he would like to be called "Levi" throughout stay on unit. Pt agreeable to be brought into the recreation room. Pt was able to identify his leisure interests such as watching television, walking, spending time with family/friends. Pt reported he is active within a community hinduism and assists with setup of services. Pt reports he used to enjoy playing street basketball prior to knee injury and surgery. Pt participated in [employer] in the corner card task and was mod I with task following setup. Pt seen by OT following visit. Physical Therapy - Bed Mobility Bed Mobility: Minimal Assistance - Transfers Wheelchair to Mat: Contact Guard Sit to Stand: Supervision - Ambulation Level of Assistance: Supervision Distance (ft.): 100 Assistive Devices: Rolling Walker - Stair Negotiation Stairs: Level of Assistance: Verbal Cues, Contact Guard, Minimal Assistance Number of Stairs: 12 Stairs: Assistive Devices: Left Handrail, Right Handrail - Standing Balance Static Stand: Supervision Dynamic Stand: Contact Guard Assist, Minimal Assistance - Pain Management Techniques: Medication - Insight/Carryover Insight/Carryover: Good - Patient/Family Education Comment: Pt ed for ther ex to improve posture and trunk extension, education for safety - Assessment/Plan Assessment: Pt actively participating in PT tx sessions focusing on BLE strengthening exercises, balance and endurance activities, and funcitonal mobility training. Pt requires min A for bed mobility, CGA for transfers, CGA for ambulation with RW, CGA for stair negotiation. Limited by fatigue, reported SOB. Pt will continue to benefit from skilled PT intervention to address deficits, reduce fall risk, and maximize functional independence. - Goals Timeframe: 10 days Goals: Sit < > supine mod I. Sit < > stand mod I. Pt will ambulate 150 ft mod I with RW. Pt will ascend/descend 21 stairs mod I with L handrail - Provider License Number: [id number] Occupational Therapy - Arousal/Attention/Orientation Patient Orientation: Person, Place, Time, Appropriate to Age, Appropriate to Situation - ADL/IADL Self Feeding: Set-up Help Grooming: Supervision, Minimal Assistance Bathing-Upper Extremity: Moderate Assistance Bathing-Lower Extremity: Moderate Assistance Dressing-Upper Extremity: Moderate Assistance Dressing-Lower Extremity: Moderate Assistance - Sitting Balance Static Sitting: Supervision Dynamic Sitting: Requires supervision, Contact Guard Assist - Transfers Wheelchair to Bed Transfers: Supervision, Verbal Cues, Moderate Assistance Toilet Transfers: Supervision, Verbal Cues, Contact Guard - Wheelchair Management Level of Assistance: Modified Independent - Upper Extremity Status Right Upper Extremity Comment: Limited PROM in R shoulder to 80 degrees flexion/ abduction, 0-45 degrees external rotation. Strength R shoulder: 2-/5, R elbow: 4-/5, R forearm: 2+/5, R wrist: 3-/5, fingers: 3+/5 Left Upper Extremity Comment: Limited PROM in L shoulder to 80 degrees flexion/ abduction, 0-45 degrees external rotation. Strength: L shoulder: 2-/5, L elbow : 4-/5, L forearm: 4-/5, L wrist: 3-/5, Fingers: 3+/5 - Pain Alleviating Techniques: Medication - Insight/Carryover Insight/Carryover: Good - Patient/Family Education Comment: Pt ed for ther ex to improve posture and trunk extension, education for safety - Assessment/Plan Assessment: Pt actively participating in PT tx sessions focusing on BLE strengthening exercises, balance and endurance activities, and funcitonal mobility training. Pt requires min A for bed mobility, CGA for transfers, CGA for ambulation with RW, CGA for stair negotiation. Limited by fatigue, reported SOB. Pt will continue to benefit from skilled PT intervention to address deficits, reduce fall risk, and maximize functional independence. - Goals Timeframe: 10 days Goals: Sit < > supine mod I. Sit < > stand mod I. Pt will ambulate 150 ft mod I with RW. Pt will ascend/descend 21 stairs mod I with L handrail - Provider Therapist: YOSI Macias License Number: [id number] Speech Therapy - Consult Information Patient on Program: Yes Medical Diagnosis: lupus Treatment Diagnosis: mild-moderate pharyngeal dysphagia - Assessment Dysphagia/Swallowing Impairment: Moderate - Plan Assessment: Pt actively participating in PT tx sessions focusing on BLE strengthening exercises, balance and endurance activities, and funcitonal mobility training. Pt requires min A for bed mobility, CGA for transfers, CGA for ambulation with RW, CGA for stair negotiation. Limited by fatigue, reported SOB. Pt will continue to benefit from skilled PT intervention to address deficits, reduce fall risk, and maximize functional independence. Plan: Continue Dysphagia Therapy - Provider Therapist: Berenice Boyd License Number: [id number] Recreational Therapy - Participation Participation: Participates in Individual and/or Group Sessions - Attendance Attendance: 3-5 times per week - Activities Leisure Activities: Cards and Games - Socialization Level of Socialization: Initiates/interacts freely with care givers and peer - Diversional Time Diversional Time: socializing with peers, enjoys playing dominoes, listening to music - Assessment Assessment/Plan: Pt actively participating in PT tx sessions focusing on BLE strengthening exercises, balance and endurance activities, and funcitonal mobility training. Pt requires min A for bed mobility, CGA for transfers, CGA for ambulation with RW, CGA for stair negotiation. Limited by fatigue, reported SOB. Pt will continue to benefit from skilled PT intervention to address deficits, reduce fall risk, and maximize functional independence. - Provider Therapist: Nupur Pollard, SAL[facility]AGE WINDER #[id number] Nutrition - Current Diet Current Diet/ Supplement/ Feedings: Mech altered (finely chopped), heart healthy diet with nectar thick liquids - Appetite Percent Meal Consumed: 75-100% - Comments Comments: N/A - Assessment/Goals/Time Frame Assessment/Goals/Time Frame: Pt is at moderate nutritional risk. Goal-. 1. Pt to consume 75-100% of meals- met, continue. Follow-up assessment due by 2017. - Provider Provider: Kenyatta Moss MS, RD Case Management - Psychosocial Assessment Support Systems: Kirti Morris (spouse)- [phone] Psychological Interventions/Needs: Patient is AAOx3, pleasant and motivated Discharge Concerns: Patient with 21 steps to negotiate at home, patient still on modified diet Patient/Family Meeting: CM met with patient and rehab team Intervention/Goal/Outcome:: 1. Goal: Mod I overall. 2. Plan: Home with VNS vs outpatient dependent on progress. 3. patient to be reteamed next week for most appropriate discharge needs, date and plan. - Discharge Plan Discharge Plan: Home with services, Outpatient rehab - Provider Provider: LARRY Fishman LSW License Number: [id number] Rehabilitation Plan - Treatment Plan Treatment Plan: Physical Therapy, Occupational Therapy, Speech, Dietary, Patient /Family Education - Discharge Plan Estimated Date of Discharge: 10/11/17 Discharge to: Home
--- NOTE | 2017-10-07 13:48 | CP.PCM.PN ---
Subjective - Date & Time of Evaluation Date of Evaluation: 10/07/17 Time of Evaluation: 13:47 - Subjective Subjective: Patient seen in the room pain is well controlled left knee injection still helping able to negotiate a flight of steps which he could not do as well prior working very hard in therapies sets for 10/11/17 d/c home Objective - Vital Signs/Intake and Output Vital Signs (last 24 hours): Temp Pulse Resp BP Pulse Ox 97.5 F L 82 20 160/82 H 99 10/07/17 07:57 10/07/17 07:57 10/07/17 07:57 10/07/17 07:57 10/07/17 07:57 - Medications Medications: Current Medications Alprazolam (Xanax) 0.5 mg PO Q8 [facility] Last Admin: 10/07/17 13:33 Dose: 0.5 mg Aspirin (Aspirin Chewable) 81 mg PO DAILY [facility] Last Admin: 10/07/17 08:48 Dose: 81 mg Azathioprine (Imuran) 50 mg PO BID [facility] Last Admin: 10/07/17 08:48 Dose: 50 mg Guaifenesin/Codeine Phosphate (Robitussin W/Codeine) 10 ml PO HS PRN PRN Reason: Cough and congestion Last Admin: 10/06/17 22:21 Dose: 10 ml Levothyroxine Sodium (Synthroid) 25 mcg PO DAILY@0630 [facility] Last Admin: 10/07/17 06:24 Dose: 25 mcg Lidocaine (Lidoderm) 2 ea TD DAILY [facility] Last Admin: 10/07/17 08:49 Dose: 2 ea Metoprolol Succinate (Toprol Xl) 50 mg PO QD5 [facility] Last Admin: 10/06/17 16:54 Dose: 50 mg Oxycodone HCl (Oxycontin Extended Release Tab) 10 mg PO Q12 [facility] Stop: 10/08/17 09:31 Last Admin: 10/07/17 08:45 Dose: 10 mg Oxycodone/Acetaminophen (Percocet 5/325 Mg Tab) 2 tab PO Q6 PRN PRN Reason: Pain, severe (8-10) Stop: 10/08/17 11:12 Last Admin: 10/06/17 16:52 Dose: 2 tab Pantoprazole Sodium (Protonix Ec Tab) 40 mg PO DAILY@0630 [facility] Last Admin: 10/07/17 06:24 Dose: 40 mg Prednisone (Prednisone Tab) 20 mg PO TID [facility] Last Admin: 10/07/17 13:33 Dose: 20 mg Ticagrelor (Brilinta) 90 mg PO BID [facility] Last Admin: 10/07/17 08:47 Dose: 90 mg Valsartan (Diovan) 320 mg PO DAILY [facility] Last Admin: 10/07/17 08:49 Dose: 320 mg Zolpidem Tartrate (Ambien) 5 mg PO HS PRN PRN Reason: Insomnia Last Admin: 10/06/17 23:32 Dose: 5 mg - Labs Labs: 10/07/17 10:45 10/07/17 10:45
[2017-10-07 14:16] LABS: LYMPHOCYTE 10 % (20-50); MONOCYTE 12 % (0-10); NEUTROPHIL 78 % (42-75); TOTAL CELLS COUNTED 100
[2017-10-07 14:17] LABS: ANISOCYTOSIS SLIGHT; PLATELET ESTIMATE NORMAL (NORMAL)
[2017-10-07] MEDS: Oxycodone/Acetaminophen 5/325 mg Tab PO PRN (15:04)
[2017-10-07] MEDS: Metoprolol Succinate 50 mg XL Tab PO SCH (17:30)
[2017-10-07] MEDS: guaiFENesin-Codeine 100-10mg/5ml Syrup (5 ml) UD PO PRN (23:16)
[2017-10-08] MEDS: Oxycodone/Acetaminophen 5/325 mg Tab PO PRN ×2 (05:05→17:00)
[2017-10-08] MEDS: Pantoprazole 40 mg EC Tab PO SCH (05:50)
[2017-10-08] MEDS: Levothyroxine 25 MCG TAB PO SCH (05:50)
[2017-10-08] MEDS: oxyCODONE 10 mg ER Tab (oxyCONTIN) PO SCH ×3 (08:19→21:36)
[2017-10-08] MEDS: Lidocaine 5% Patch TD SCH (08:24)
--- NOTE | 2017-10-08 09:25 | CP.PCM.PN ---
Subjective - Date & Time of Evaluation Date of Evaluation: 10/08/17 Time of Evaluation: 07:30 - Subjective Subjective: Patient seen and examined bedside with Dr Hernandez. Patient doing well on PT able to climb 11 steps( goal 22 steps Home stairs).Possible dc Friday. Denies SOB, chest pain, cough. Numbness, n,v,d , abd pain. no overnight events. Objective - Vital Signs/Intake and Output Vital Signs (last 24 hours): Temp Pulse Resp BP Pulse Ox 97.2 F L 69 20 144/84 98 10/08/17 07:36 10/08/17 07:36 10/08/17 07:36 10/08/17 07:36 10/08/17 07:36 - Medications Medications: Current Medications Alprazolam (Xanax) 0.5 mg PO Q8 [facility] Last Admin: 10/08/17 05:49 Dose: 0.5 mg Aspirin (Aspirin Chewable) 81 mg PO DAILY [facility] Last Admin: 10/08/17 08:23 Dose: 81 mg Azathioprine (Imuran) 50 mg PO BID [facility] Last Admin: 10/08/17 08:24 Dose: 50 mg Guaifenesin/Codeine Phosphate (Robitussin W/Codeine) 10 ml PO HS PRN PRN Reason: Cough and congestion Last Admin: 10/07/17 23:16 Dose: 10 ml Levothyroxine Sodium (Synthroid) 25 mcg PO DAILY@0630 [facility] Last Admin: 10/08/17 05:50 Dose: 25 mcg Lidocaine (Lidoderm) 2 ea TD DAILY [facility] Last Admin: 10/08/17 08:24 Dose: 2 ea Metoprolol Succinate (Toprol Xl) 50 mg PO QD5 [facility] Last Admin: 10/07/17 17:30 Dose: 50 mg Oxycodone HCl (Oxycontin Extended Release Tab) 10 mg PO Q12 [facility] Stop: 10/11/17 07:46 Last Admin: 10/08/17 08:22 Dose: 10 mg Oxycodone/Acetaminophen (Percocet 5/325 Mg Tab) 2 tab PO Q6 PRN PRN Reason: Pain, severe (8-10) Stop: 10/11/17 07:45 Pantoprazole Sodium (Protonix Ec Tab) 40 mg PO DAILY@0630 [facility] Last Admin: 10/08/17 05:50 Dose: 40 mg Prednisone (Prednisone Tab) 20 mg PO TID [facility] Last Admin: 10/08/17 08:24 Dose: 20 mg Ticagrelor (Brilinta) 90 mg PO BID [facility] Last Admin: 10/08/17 08:23 Dose: 90 mg Valsartan (Diovan) 320 mg PO DAILY [facility] Last Admin: 10/08/17 08:23 Dose: 320 mg Zolpidem Tartrate (Ambien) 5 mg PO HS PRN PRN Reason: Insomnia Last Admin: 10/07/17 23:16 Dose: 5 mg - Labs Labs: 10/07/17 10:45 10/07/17 10:45 - Constitutional Appears: Non-toxic, No Acute Distress - Head Exam Head Exam: ATRAUMATIC, NORMOCEPHALIC - Eye Exam Eye Exam: Normal appearance - ENT Exam ENT Exam: Mucous Membranes Moist - Respiratory Exam Respiratory Exam: Clear to Ausculation Bilateral. absent: Rhonchi, Wheezes - Cardiovascular Exam Cardiovascular Exam: REGULAR RHYTHM, +S1, +S2 - GI/Abdominal Exam GI & Abdominal Exam: Soft, Normal Bowel Sounds. absent: Tenderness - Extremities Exam Extremities Exam: Normal Inspection. 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 c/w PT in Acute Rehab -improving on PT 2) CAD s/p s/p CABG and 3 stent last one 06/2017 -c/w home medications -Food Preparation Supervisor consult appreciated 3) SLE -continue home medications 4) Transaminitis -chronically elevated since 02/2017 -may be secondary to azathioprine ( lupus medication) -AST/Alt 211/258 -Hep panel neg 05/2017 -CT abd: liver, pancreas, gallbladder normal 07/2017 -Abd Us: hepatomegaly. Liver steatosis -f/u outpatient with gizzard puller Dr Bansal for modification of medications -f/u CBC, CMP 5) DVT Prophylaxis -Lovenox 40 mg sc daily
[2017-10-08] MEDS: Metoprolol Succinate 50 mg XL Tab PO SCH (17:04)
--- NOTE | 2017-10-08 19:58 | CP.PCM.PN ---
Subjective - Date & Time of Evaluation Date of Evaluation: 10/08/17 Time of Evaluation: 12:00 - Subjective Subjective: no acute complaints just weakness Objective - Vital Signs/Intake and Output Vital Signs (last 24 hours): Temp Pulse Resp BP Pulse Ox 97.2 F L 90 20 156/85 H 99 10/08/17 07:36 10/08/17 17:04 10/08/17 07:36 10/08/17 17:04 10/08/17 08:53 - Medications Medications: Current Medications Alprazolam (Xanax) 0.5 mg PO Q8 [facility] Last Admin: 10/08/17 13:30 Dose: 0.5 mg Aspirin (Aspirin Chewable) 81 mg PO DAILY [facility] Last Admin: 10/08/17 08:23 Dose: 81 mg Azathioprine (Imuran) 50 mg PO BID [facility] Last Admin: 10/08/17 17:04 Dose: 50 mg Guaifenesin/Codeine Phosphate (Robitussin W/Codeine) 10 ml PO HS PRN PRN Reason: Cough and congestion Last Admin: 10/07/17 23:16 Dose: 10 ml Levothyroxine Sodium (Synthroid) 25 mcg PO DAILY@629 [facility] Last Admin: 10/08/17 05:50 Dose: 25 mcg Lidocaine (Lidoderm) 2 ea TD DAILY [facility] Last Admin: 10/08/17 08:24 Dose: 2 ea Metoprolol Succinate (Toprol Xl) 50 mg PO QD5 [facility] Last Admin: 10/08/17 17:04 Dose: 50 mg Oxycodone HCl (Oxycontin Extended Release Tab) 10 mg PO Q12 [facility] Stop: 10/11/17 07:46 Last Admin: 10/08/17 08:22 Dose: 10 mg Oxycodone/Acetaminophen (Percocet 5/325 Mg Tab) 2 tab PO Q6 PRN PRN Reason: Pain, severe (8-10) Stop: 10/11/17 07:45 Last Admin: 10/08/17 17:00 Dose: 2 tab Pantoprazole Sodium (Protonix Ec Tab) 40 mg PO DAILY@0630 [facility] Last Admin: 10/08/17 05:50 Dose: 40 mg Prednisone (Prednisone Tab) 20 mg PO TID [facility] Last Admin: 10/08/17 17:04 Dose: 20 mg Ticagrelor (Brilinta) 90 mg PO BID [facility] Last Admin: 10/08/17 17:04 Dose: 90 mg Valsartan (Diovan) 320 mg PO DAILY [facility] Last Admin: 10/08/17 08:23 Dose: 320 mg Zolpidem Tartrate (Ambien) 5 mg PO HS PRN PRN Reason: Insomnia Last Admin: 10/07/17 23:16 Dose: 5 mg - Labs Labs: 10/07/17 10:45 10/07/17 10:45 - Head Exam Head Exam: ATRAUMATIC, NORMAL INSPECTION, NORMOCEPHALIC - Eye Exam Eye Exam: EOMI, Normal appearance Pupil Exam: NORMAL ACCOMODATION - ENT Exam ENT Exam: Mucous Membranes Moist, Normal Exam - Neck Exam Neck Exam: Full ROM, Normal Inspection - Respiratory Exam Respiratory Exam: Clear to Ausculation Bilateral, NORMAL BREATHING PATTERN - Cardiovascular Exam Cardiovascular Exam: REGULAR RHYTHM - GI/Abdominal Exam GI & Abdominal Exam: Soft, Normal Bowel Sounds - Rectal Exam Rectal Exam: NORMAL INSPECTION - Exam Bimanual exam: NORMAL BIMANUAL EXAM - Extremities Exam Extremities Exam: Full ROM, Normal Capillary Refill, Normal Inspection - Back Exam Back Exam: NORMAL INSPECTION - Neurological Exam Neurological Exam: Alert, Awake - Psychiatric Exam Psychiatric exam: Normal Affect, Normal Mood - Skin Skin Exam: Dry, Normal Color Assessment and Plan (1) Gait abnormality Assessment & Plan: plan for physical occupational therapy rec therapy Status: Acute (2) Systemic lupus erythematosus (SLE) in adult Status: Acute (3) Abdominal pain Status: Acute (4) Acute constipation Status: Acute (5) CHF (congestive heart failure) Status: Acute (6) COPD (chronic obstructive pulmonary disease) Status: Acute (7) Chest pain Status: Acute (8) Colitis Status: Acute - Assessment and Plan (Free Text) Assessment: Hospital Bed : patient needs a hospital bed as history of CHF, COPD to elevate the head of the bed more than 30 degrees and requires position change not feasible with an ordinary bed in order to alleviate pain due to Lupus. Also dictated the note Covering for Dr Miranda
--- NOTE | 2017-10-08 20:13 | PN ---
DATE: 10/08/2017 [address] PRO[address] NOTE [address] Miranda SUBJECTIVE: The patient is 62-year-old male with no acute complaints at present. PHYSICAL EXAMINATION: VITAL SIGNS: Stable. NECK: Supple. CHEST: Symmetrical. HEART: Sounds S1 and S2. ABDOMEN: Abdominal area is benign. EXTREMITIES: No clubbing, cyanosis or edema. IMPRESSION: Lupus, systemic lupus erythematosus, chronic obstructive pulmonary disease, congestive heart failure, and coronary artery disease. PLAN: Plan is for physical therapy, occupational therapy, and recreational therapy. Tentative discharge is for 10/11/2017, the patient needs hospital bed. I evaluated the patient today being 10/08/2017 with problems of deconditioning, coronary artery disease, COPD, CHF and lupus. The patient needs the head of the bed to be elevated more than 30 degrees most of the time. Further more the patient needs positioning of the body, not feasible with an ordinary bed to alleviate any pain due to the problems with lupus. The patient needs hospital bed, therapy program at present. José Miguel Be MD
[2017-10-08] MEDS: guaiFENesin-Codeine 100-10mg/5ml Syrup (5 ml) UD PO PRN (22:46)
[2017-10-09] MEDS: Oxycodone/Acetaminophen 5/325 mg Tab PO PRN ×2 (03:18→16:30)
[2017-10-09] MEDS: Pantoprazole 40 mg EC Tab PO SCH (06:31)
[2017-10-09] MEDS: Levothyroxine 25 MCG TAB PO SCH (06:31)
[2017-10-09] MEDS: oxyCODONE 10 mg ER Tab (oxyCONTIN) PO SCH ×3 (08:40→21:13)
[2017-10-09] MEDS: Lidocaine 5% Patch TD SCH (08:42)
--- NOTE | 2017-10-09 08:46 | CP.PCM.PN ---
Subjective - Date & Time of Evaluation Date of Evaluation: 10/09/17 Time of Evaluation: 07:05 - Subjective Subjective: Patient seen and examined bedside with Dr Hernandez. Patient doing well on PT. Possible dc Friday. Denies SOB, chest pain, cough. Numbness, n,v,d , abd pain. no overnight events. Objective - Vital Signs/Intake and Output Vital Signs (last 24 hours): Temp Pulse Resp BP Pulse Ox 97.3 F L 71 20 152/81 H 98 10/09/17 07:47 10/09/17 07:47 10/09/17 07:47 10/09/17 07:47 10/09/17 07:47 - Medications Medications: Current Medications Alprazolam (Xanax) 0.5 mg PO Q8 [facility] Last Admin: 10/09/17 06:31 Dose: 0.5 mg Aspirin (Aspirin Chewable) 81 mg PO DAILY [facility] Last Admin: 10/09/17 08:41 Dose: 81 mg Azathioprine (Imuran) 50 mg PO BID [facility] Last Admin: 10/09/17 08:41 Dose: 50 mg Guaifenesin/Codeine Phosphate (Robitussin W/Codeine) 10 ml PO HS PRN PRN Reason: Cough and congestion Last Admin: 10/08/17 22:46 Dose: 10 ml Levothyroxine Sodium (Synthroid) 25 mcg PO DAILY@30 [facility] Last Admin: 10/09/17 06:31 Dose: 25 mcg Lidocaine (Lidoderm) 2 ea TD DAILY [facility] Last Admin: 10/09/17 08:42 Dose: 2 ea Metoprolol Succinate (Toprol Xl) 50 mg PO QD5 [facility] Last Admin: 10/08/17 17:04 Dose: 50 mg Oxycodone HCl (Oxycontin Extended Release Tab) 10 mg PO Q12 [facility] Stop: 10/11/17 07:46 Last Admin: 10/09/17 08:44 Dose: Not Given Oxycodone/Acetaminophen (Percocet 5/325 Mg Tab) 2 tab PO Q6 PRN PRN Reason: Pain, severe (8-10) Stop: 10/11/17 07:45 Last Admin: 10/09/17 03:18 Dose: 2 tab Pantoprazole Sodium (Protonix Ec Tab) 40 mg PO DAILY@0630 [facility] Last Admin: 10/09/17 06:31 Dose: 40 mg Prednisone (Prednisone Tab) 20 mg PO TID [facility] Last Admin: 10/09/17 08:41 Dose: 20 mg Ticagrelor (Brilinta) 90 mg PO BID [facility] Last Admin: 10/09/17 08:41 Dose: 90 mg Valsartan (Diovan) 320 mg PO DAILY [facility] Last Admin: 10/09/17 08:41 Dose: 320 mg Zolpidem Tartrate (Ambien) 5 mg PO HS PRN PRN Reason: Insomnia Last Admin: 10/08/17 22:45 Dose: 5 mg - Labs Labs: 10/07/17 10:45 10/07/17 10:45 - Constitutional Appears: Non-toxic, No Acute Distress - Head Exam Head Exam: NORMOCEPHALIC - Eye Exam Eye Exam: Normal appearance - ENT Exam ENT Exam: Mucous Membranes Moist - Neck Exam Neck Exam: Normal Inspection - Respiratory Exam Respiratory Exam: Clear to Ausculation Bilateral - Cardiovascular Exam Cardiovascular Exam: REGULAR RHYTHM - GI/Abdominal Exam GI & Abdominal Exam: Soft, Normal Bowel Sounds. absent: Tenderness - Extremities Exam Extremities Exam: Normal Inspection. 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 c/w PT in Acute Rehab -improving on PT 2) CAD s/p s/p CABG and 3 stent last one 06/2017 -c/w home medications -Etl Analyst Developer consult appreciated 3) SLE -continue home medications 4) Transaminitis -chronically elevated since 02/2017 -may be secondary to azathioprine ( lupus medication) -AST/Alt 211/258 -Hep panel neg 05/2017 -CT abd: liver, pancreas, gallbladder normal 07/2017 -Abd Us: hepatomegaly. Liver steatosis -f/u outpatient with systems administrator Dr Bansal for modification of medications -f/u CBC, CMP 5) DVT Prophylaxis -Lovenox 40 mg sc daily
[2017-10-09] MEDS: Metoprolol Succinate 50 mg XL Tab PO SCH (16:30)
[2017-10-09] MEDS: guaiFENesin-Codeine 100-10mg/5ml Syrup (5 ml) UD PO PRN (21:17)
[2017-10-10] MEDS: Oxycodone/Acetaminophen 5/325 mg Tab PO PRN ×2 (02:57→16:48)
[2017-10-10] MEDS: Pantoprazole 40 mg EC Tab PO SCH (06:11)
[2017-10-10] MEDS: Levothyroxine 25 MCG TAB PO SCH (06:11)
[2017-10-10] MEDS: oxyCODONE 10 mg ER Tab (oxyCONTIN) PO SCH ×2 (09:00→21:10)
[2017-10-10] MEDS: Lidocaine 5% Patch TD SCH (09:27)
[2017-10-10] MEDS: Metoprolol Succinate 50 mg XL Tab PO SCH (16:49)
[2017-10-10 23:29] VITALS: PULSE 84
[2017-10-11] MEDS: Pantoprazole 40 mg EC Tab PO SCH (05:40)
[2017-10-11] MEDS: Levothyroxine 25 MCG TAB PO SCH (05:40)
[2017-10-11] MEDS ORDERED: oxyCODONE 10 mg ER Tab (oxyCONTIN) PO SCH (09:00)
[2017-10-11 09:06] VITALS: BP 147/89; TEMP 98.1; O2SAT 99
[2017-10-11] MEDS: Lidocaine 5% Patch TD SCH (09:39)
--- NOTE | 2017-10-11 10:16 | CP.PCM.PN ---
Subjective - Date & Time of Evaluation Date of Evaluation: 10/09/17 Time of Evaluation: 12:00 - Subjective Subjective: no acute complaints except some knee pain Objective - Vital Signs/Intake and Output Vital Signs (last 24 hours): Temp Pulse Resp BP Pulse Ox 98.1 F 84 20 147/89 99 10/11/17 08:00 10/11/17 08:00 10/11/17 08:00 10/11/17 08:00 10/11/17 08:00 - Medications Medications: Current Medications Alprazolam (Xanax) 0.5 mg PO Q8 [facility] Last Admin: 10/11/17 05:40 Dose: 0.5 mg Aspirin (Aspirin Chewable) 81 mg PO DAILY [facility] Last Admin: 10/11/17 09:38 Dose: 81 mg Azathioprine (Imuran) 50 mg PO BID [facility] Last Admin: 10/11/17 09:38 Dose: 50 mg Levothyroxine Sodium (Synthroid) 25 mcg PO DAILY@0630 [facility] Last Admin: 10/11/17 05:40 Dose: 25 mcg Lidocaine (Lidoderm) 2 ea TD DAILY [facility] Last Admin: 10/11/17 09:39 Dose: 2 ea Metoprolol Succinate (Toprol Xl) 50 mg PO QD5 [facility] Last Admin: 10/10/17 16:49 Dose: 50 mg Oxycodone HCl (Oxycontin Extended Release Tab) 10 mg PO Q12 [facility] Stop: 10/14/17 09:01 Last Admin: 10/11/17 09:52 Dose: 10 mg Pantoprazole Sodium (Protonix Ec Tab) 40 mg PO DAILY@0630 [facility] Last Admin: 10/11/17 05:40 Dose: 40 mg Prednisone (Prednisone Tab) 20 mg PO TID [facility] Last Admin: 10/11/17 09:38 Dose: 20 mg Ticagrelor (Brilinta) 90 mg PO BID [facility] Last Admin: 10/11/17 09:38 Dose: 90 mg Valsartan (Diovan) 320 mg PO DAILY [facility] Last Admin: 10/11/17 09:38 Dose: 320 mg Zolpidem Tartrate (Ambien) 5 mg PO HS PRN PRN Reason: Insomnia Last Admin: 10/11/17 00:51 Dose: 5 mg - Labs Labs: 10/07/17 10:45 10/07/17 10:45 - Head Exam Head Exam: ATRAUMATIC, NORMAL INSPECTION, NORMOCEPHALIC - Eye Exam Eye Exam: EOMI, Normal appearance Pupil Exam: NORMAL ACCOMODATION, PERRL - ENT Exam ENT Exam: Mucous Membranes Moist - Neck Exam Neck Exam: Normal Inspection - Respiratory Exam Respiratory Exam: Clear to Ausculation Bilateral, NORMAL BREATHING PATTERN - Cardiovascular Exam Cardiovascular Exam: REGULAR RHYTHM - GI/Abdominal Exam GI & Abdominal Exam: Normal Bowel Sounds - Rectal Exam Rectal Exam: NORMAL INSPECTION - Exam External exam: NORMAL EXTERNAL EXAM - Extremities Exam Extremities Exam: Full ROM - Back Exam Back Exam: CVA tenderness (R) - Neurological Exam Neurological Exam: Alert, Awake Additional comments: bilateral weakness - Psychiatric Exam Psychiatric exam: Normal Affect, Normal Mood - Skin Skin Exam: Dry, Normal Color Assessment and Plan (1) Gait abnormality Assessment & Plan: plan for physical, occupational therapy and rec therapy covering for Dr Miranda Status: Acute (2) Systemic lupus erythematosus (SLE) in adult Status: Acute (3) Abdominal pain Status: Acute (4) Acute constipation Status: Acute (5) CHF (congestive heart failure) Status: Acute (6) COPD (chronic obstructive pulmonary disease) Status: Acute (7) Chest pain Status: Acute (8) Colitis Status: Acute
--- NOTE | 2017-10-11 10:22 | CP.PCM.PN ---
Subjective - Date & Time of Evaluation Date of Evaluation: 10/10/17 Time of Evaluation: 16:00 - Subjective Subjective: patient with complaints of knee discomfort no acute other complaints Objective - Vital Signs/Intake and Output Vital Signs (last 24 hours): Temp Pulse Resp BP Pulse Ox 98.1 F 84 20 147/89 99 10/11/17 08:00 10/11/17 08:00 10/11/17 08:00 10/11/17 08:00 10/11/17 08:00 - Medications Medications: Current Medications Alprazolam (Xanax) 0.5 mg PO Q8 [facility] Last Admin: 10/11/17 05:40 Dose: 0.5 mg Aspirin (Aspirin Chewable) 81 mg PO DAILY [facility] Last Admin: 10/11/17 09:38 Dose: 81 mg Azathioprine (Imuran) 50 mg PO BID [facility] Last Admin: 10/11/17 09:38 Dose: 50 mg Levothyroxine Sodium (Synthroid) 25 mcg PO DAILY@0630 [facility] Last Admin: 10/11/17 05:40 Dose: 25 mcg Lidocaine (Lidoderm) 2 ea TD DAILY [facility] Last Admin: 10/11/17 09:39 Dose: 2 ea Metoprolol Succinate (Toprol Xl) 50 mg PO QD5 [facility] Last Admin: 10/10/17 16:49 Dose: 50 mg Oxycodone HCl (Oxycontin Extended Release Tab) 10 mg PO Q12 [facility] Stop: 10/14/17 09:01 Last Admin: 10/11/17 09:52 Dose: 10 mg Pantoprazole Sodium (Protonix Ec Tab) 40 mg PO DAILY@0630 [facility] Last Admin: 10/11/17 05:40 Dose: 40 mg Prednisone (Prednisone Tab) 20 mg PO TID [facility] Last Admin: 10/11/17 09:38 Dose: 20 mg Ticagrelor (Brilinta) 90 mg PO BID [facility] Last Admin: 10/11/17 09:38 Dose: 90 mg Valsartan (Diovan) 320 mg PO DAILY [facility] Last Admin: 10/11/17 09:38 Dose: 320 mg Zolpidem Tartrate (Ambien) 5 mg PO HS PRN PRN Reason: Insomnia Last Admin: 10/11/17 00:51 Dose: 5 mg - Labs Labs: 10/07/17 10:45 10/07/17 10:45 - Head Exam Head Exam: ATRAUMATIC, NORMAL INSPECTION, NORMOCEPHALIC - Eye Exam Eye Exam: EOMI, Normal appearance Pupil Exam: NORMAL ACCOMODATION, PERRL - ENT Exam ENT Exam: Mucous Membranes Moist, Normal Exam - Neck Exam Neck Exam: Full ROM, Normal Inspection - Respiratory Exam Respiratory Exam: Clear to Ausculation Bilateral, NORMAL BREATHING PATTERN - Cardiovascular Exam Cardiovascular Exam: REGULAR RHYTHM - GI/Abdominal Exam GI & Abdominal Exam: Soft, Normal Bowel Sounds - Rectal Exam Rectal Exam: NORMAL INSPECTION - Exam External exam: NORMAL EXTERNAL EXAM - Extremities Exam Extremities Exam: Full ROM - Back Exam Back Exam: NORMAL INSPECTION - Neurological Exam Neurological Exam: Alert, Awake Additional comments: weakness - Psychiatric Exam Psychiatric exam: Normal Affect, Normal Mood - Skin Skin Exam: Dry, Normal Color Assessment and Plan (1) Gait abnormality Assessment & Plan: Equipment written for patient, prior to Dc Home, plan for Dc on 10/11 To continue with physical, occupational and rec therapy covering for Dr Miranda. Follow up with PMD after Dc Status: Acute (2) Systemic lupus erythematosus (SLE) in adult Status: Acute (3) Abdominal pain Status: Acute (4) Acute constipation Status: Acute (5) CHF (congestive heart failure) Status: Acute (6) COPD (chronic obstructive pulmonary disease) Status: Acute (7) Chest pain Status: Acute (8) Colitis Status: Acute
--- NOTE | 2017-10-11 18:01 | CP.PCM.PN ---
Subjective - Date & Time of Evaluation Date of Evaluation: 10/10/17 Time of Evaluation: 12:00 - Subjective Subjective: Patient is doing very well Has no chest pain or SOB. Objective - Vital Signs/Intake and Output Vital Signs (last 24 hours): Temp Pulse Resp BP Pulse Ox 98.1 F 84 20 147/89 99 10/11/17 08:00 10/11/17 08:00 10/11/17 08:00 10/11/17 08:00 10/11/17 08:00 - Labs Labs: 10/07/17 10:45 10/07/17 10:45 Assessment and Plan (1) Gait abnormality Status: Acute (2) COPD (chronic obstructive pulmonary disease) Status: Acute (3) CAD (coronary artery disease) Status: Chronic (4) Degenerative arthritis Status: Chronic (5) T2DM (type 2 diabetes mellitus) Status: Chronic (6) Systemic lupus erythematosus (SLE) in adult Status: Acute
--- NOTE | 2017-10-11 18:02 | CP.PCM.DIS ---
Provider - Provider Date of Admission: 09/29/17 19:01 Attending physician: Sony Hernandez MD Diagnosis - Discharge Diagnosis (1) Gait abnormality Status: Acute (2) COPD (chronic obstructive pulmonary disease) Status: Acute (3) CAD (coronary artery disease) Status: Chronic (4) Degenerative arthritis Status: Chronic (5) T2DM (type 2 diabetes mellitus) Status: Chronic (6) Systemic lupus erythematosus (SLE) in adult Status: Acute Hospital Course - Lab Results Lab Results: Most Recent Lab Values WBC 15.8 K/uL (4.8-10.8) H 10/07/17 10:45 RBC 4.52 Mil/uL (4.40-5.90) 10/07/17 10:45 Hgb 12.7 g/dL (12.0-18.0) 10/07/17 10:45 Hct 38.9 % (35.0-51.0) 10/07/17 10:45 MCV 86.1 fl (80.0-94.0) 10/07/17 10:45 MCH 28.1 pg (27.0-31.0) 10/07/17 10:45 MCHC 32.7 g/dL (33.0-37.0) L 10/07/17 10:45 RDW 17.7 % (11.5-14.5) H 10/07/17 10:45 Plt Count 394 K/uL (130-400) 10/07/17 10:45 MPV 7.2 fl (7.2-11.7) 10/07/17 10:45 Neut % (Auto) 85.7 % (50.0-75.0) H 10/07/17 10:45 Lymph % (Auto) 7.0 % (20.0-40.0) L 10/07/17 10:45 [place] % (Auto) 6.6 % (0.0-10.0) 10/07/17 10:45 Eos % (Auto) 0.6 % (0.0-4.0) 10/07/17 10:45 Baso % (Auto) 0.1 % (0.0-2.0) 10/07/17 10:45 Neut # (Auto) 13.5 K/uL (1.8-7.0) H 10/07/17 10:45 Lymph # (Auto) 1.1 K/uL (1.0-4.3) 10/07/17 10:45 [place] # (Auto) 1.0 K/uL (0.0-0.8) H 10/07/17 10:45 Eos # (Auto) 0.1 K/uL (0.0-0.7) 10/07/17 10:45 Baso # (Auto) 0.0 K/uL (0.0-0.2) 10/07/17 10:45 Neutrophils % (Manual) 78 % (42-75) H 10/07/17 10:45 Lymphocytes % (Manual) 10 % (20-50) L 10/07/17 10:45 Monocytes % (Manual) 12 % (0-10) H 10/07/17 10:45 Platelet Estimate Normal (NORMAL) 10/07/17 10:45 Anisocytosis (manual) Slight 10/07/17 10:45 Sodium 143 mmol/l (132-148) 10/07/17 10:45 Potassium 4.0 MMOL/L (3.6-5.0) 10/07/17 10:45 Chloride 98 mmol/L (98-107) 10/07/17 10:45 Carbon Dioxide 31 mmol/L (22-30) H 10/07/17 10:45 Anion Gap 18 (10-20) 10/07/17 10:45 BUN 18 mg/dl (9-20) 10/07/17 10:45 Creatinine 0.5 mg/dl (0.8-1.5) L 10/07/17 10:45 Est GFR ( Amer) > 60 10/07/17 10:45 Est GFR (Non-Af Amer) > 60 10/07/17 10:45 Random Glucose 70 mg/dL (75-110) L 10/07/17 10:45 Calcium 9.2 mg/dL (8.4-10.2) 10/07/17 10:45 Total Bilirubin 0.5 mg/dl (0.2-1.3) 10/07/17 10:45 AST 104 U/L (17-59) H 10/07/17 10:45 ALT 147 U/L (21-72) H 10/07/17 10:45 Alkaline Phosphatase 59 U/L (38-126) 10/07/17 10:45 Total Protein 7.0 G/DL (6.3-8.2) 10/07/17 10:45 Albumin 3.9 g/dL (3.5-5.0) 10/07/17 10:45 Globulin 3.2 gm/dL (2.2-3.9) 10/07/17 10:45 Albumin/Globulin Ratio 1.2 (1.0-2.1) 10/07/17 10:45 - Hospital Course Hospital Course: This is a 62 y/o male admitted for genral debility, gait dysfunction and generalized arthritis from SLE. Discharge Exam - Head Exam Head Exam: ATRAUMATIC, NORMAL INSPECTION, NORMOCEPHALIC Discharge Plan - Follow Up Plan Condition: GOOD Disposition: HOME/ ROUTINE
== END 2017-10-11 12:15 | disposition home health service (06) | DRG 554 ==
PROVIDERS: ADMIT Family Medicine; ATTEND Family Medicine
PROC: F07Z9FZ Gait Training/Functional Ambulation Treatment using Assistive, Adaptive, Supportive or Protective Equipment (ICD-10-PCS; principal; 2017-09-29)
PROC: F07M6FZ Therapeutic Exercise Treatment of Musculoskeletal System - Whole Body using Assistive, Adaptive, Supportive or Protective Equipment (ICD-10-PCS; 2017-09-29)
PROC: F08Z4FZ Home Management Treatment using Assistive, Adaptive, Supportive or Protective Equipment (ICD-10-PCS; 2017-09-29)
DX: M19.90 Unspecified osteoarthritis, unspecified site (principal); R26.2 Difficulty in walking, not elsewhere classified; R53.81 Other malaise; M32.9 Systemic lupus erythematosus, unspecified; Z87.891 Personal history of nicotine dependence; Z95.1 Presence of aortocoronary bypass graft; Z95.5 Presence of coronary angioplasty implant and graft; Z96.651 Presence of right artificial knee joint; R16.0 Hepatomegaly, not elsewhere classified; M62.81 Muscle weakness (generalized); R26.9 Unspecified abnormalities of gait and mobility; R74.0 Nonspecific elevation of levels of transaminase and lactic acid dehydrogenase [LDH]; E03.9 Hypothyroidism, unspecified; E11.9 Type 2 diabetes mellitus without complications; E78.00 Pure hypercholesterolemia, unspecified; I11.0 Hypertensive heart disease with heart failure; I25.10 Atherosclerotic heart disease of native coronary artery without angina pectoris; I50.9 Heart failure, unspecified; J44.9 Chronic obstructive pulmonary disease, unspecified; M06.9 Rheumatoid arthritis, unspecified; M13.0 Polyarthritis, unspecified